=== PATIENT | female | born 1950 | race African-American/Black ===

== ENCOUNTER 2019-12-10 17:15 | Emergency (ER) | payer OTHER ==
--- NOTE | 2019-12-10 17:42 | ER ---
Nurse's Notes [facility] Name: Tracy Peterson Age: 69 yrs Sex: Female : 1950 Arrival Date: 12/10/2019 Time: 17:18 Bed 20 Private MD: Diagnosis: Acute sinusitis Presentation: 12/09 17:28 Chief complaint: Patient states: " I've been feeling like stuff is crawling on my face, ph like little bugs or something. It's been going on for a few days now and it's driving me crazy." Denies changes in soaps, lotions, ect, also states, " I noticed some swelling here (on sides of nose) so I thought I might have an infection" Denies sinus congestion or fever. Coronavirus screen: Patient denies a cough. Patient denies shortness of breath or difficulty breathing. Patient denies measured and/or subjective temperature greater than 100.4F prior to today's visit. Patient denies travel on a cruise ship or to a country the [facility] currently lists as an affected area. Patient denies contact with known and/or suspected case of COVID-19. Ebola Screen: No symptoms or risks identified at this time. Initial Sepsis Screen: Does the patient meet any 2 criteria? No. Patient's initial sepsis screen is negative. Does the patient have a suspected source of infection? No. Patient's initial sepsis screen is negative. Risk Assessment: Do you want to hurt yourself or someone else? Patient reports no desire to harm self or others. Onset of symptoms was December 10, 2019. 17:28 Method Of Arrival: Ambulatory ph 17:28 Acuity: TRICIA 4 ph Historical: - Allergies: 17:32 No Known Allergies; ph - Home Meds: 17:32 Amlodipine once daily [Active]; [place] Thyroid Oral daily [Active]; Hydrochlorothiazide ph Oral once daily [Active]; levothyroxine once daily [Active]; - PMHx: 17:32 Hypertension; Hypothyroidism; ph - PSHx: 17:32 Knee surgery; hip surgery; ph - Immunization history:: Adult Immunizations unknown. - Social history:: Smoking status: Patient denies any tobacco usage or history of. Screenin:43 Abuse screen: Denies threats or abuse. Nutritional screening: No deficits noted. em Tuberculosis screening: No symptoms or risk factors identified. Fall Risk None identified. Assessment: 17:50 General: Appears in no apparent distress. comfortable, Behavior is calm, cooperative, em appropriate for age, Denies fever. Pain: Denies pain. Neuro: Level of Consciousness is awake, alert, obeys commands, Oriented to person, place, time, situation, Appropriate for age. Cardiovascular: Capillary refill < 3 seconds Patient's skin is warm and dry. Respiratory: Airway is patent Respiratory effort is even, unlabored, Respiratory pattern is regular, symmetrical. GI: Abdomen is flat. EENT: Nares are clear Oral mucosa is moist. Throat is clear is pink. Derm: Skin is intact, is healthy with good turgor, Skin is pink, warm \\T\\ dry. Musculoskeletal: Capillary refill < 3 seconds, Range of motion: intact in all extremities. Vital Signs: 17:28 BP 128 / 68; Pulse 82; Resp 18; Temp 97.9; Pulse Ox 97% on R/A; ph ED Course: 17:18 Patient arrived in ED. mr 17:23 Yunier Cameron, IRMA is Primary Nurse. em 17:25 Vicente Cortes NP is PHCP. pm1 17:25 Florentino Elizondo MD is Attending Physician. pm1 17:32 Triage completed. ph 17:33 Arm band placed on Patient placed in an exam room. ph 17:43 Patient has correct armband on for positive identification. Bed in low position. Call em light in reach. 18:03 No provider procedures requiring assistance completed. Patient did not have IV access em during this emergency room visit. Administered Medications: No medications were administered Outcome: 17:42 Discharge ordered by . pm1 18:06 Discharged to home ambulatory. em 18:06 Condition: good 18:06 Discharge instructions given to patient, Instructed on discharge instructions, follow up and referral plans. medication usage, Demonstrated understanding of instructions, follow-up care, medications, Prescriptions given X 1. 18:09 Patient left the ED. em Signatures: Kathryn Menjivar Yunier Cameron, IRMA RN Faby Khoury RN RN Vicente Cortes, [facility] [employer] [facility] pm1
--- NOTE | 2019-12-10 17:43 | EDPHYS ---
Physician Documentation [facility] Name: Tracy Peterson Age: 69 yrs Sex: Female : 1950 Arrival Date: 12/10/2019 Time: 17:18 Bed 20 Private MD: ED Physician Florentino Elizondo HPI: 12/09 17:41 This 69 yrs old Black Female presents to ER via Ambulatory with complaints of Sinus pm1 Congestion, Facial problem. 17:41 The patient presents with Congestion left side of nose. Onset: The symptoms/episode pm1 began/occurred 2 week(s) ago. Modifying factors: The symptoms are alleviated by hot shower is able to blow her nose, the symptoms are aggravated by nothing. Associated signs and symptoms: Pertinent positives: ear ache, Pertinent negatives: chest pain, cough, fever, shortness of breath, sore throat, vertigo. Severity of symptoms: in the emergency department the symptoms are worse. The patient has not recently seen a physician, has an appointment scheduled, Dr. Foote on Tuesday. Historical: - Allergies: 17:32 No Known Allergies; ph - Home Meds: 17:32 Amlodipine once daily [Active]; [place] Thyroid Oral daily [Active]; Hydrochlorothiazide ph Oral once daily [Active]; levothyroxine once daily [Active]; - PMHx: 17:32 Hypertension; Hypothyroidism; ph - PSHx: 17:32 Knee surgery; hip surgery; ph - Immunization history:: Adult Immunizations unknown. - Social history:: Smoking status: Patient denies any tobacco usage or history of. ROS: 17:41 Constitutional: Negative for fever, chills, and weight loss. pm1 17:41 Neck: Negative for injury, pain, and swelling, Cardiovascular: Negative for chest pain, palpitations, and edema, Respiratory: Negative for shortness of breath, cough, wheezing, and pleuritic chest pain, Back: Negative for injury and pain, MS/Extremity: Negative for injury and deformity, Skin: Negative for injury, rash, and discoloration. 17:41 ENT: Positive for ear pain, sinus congestion, sinus pain, Negative for sore throat. 17:41 Neuro: Negative for dizziness, headache. Exam: 17:41 Constitutional: This is a well developed, well nourished patient who is awake, alert, pm1 and in no acute distress. Head/Face: Normocephalic, atraumatic. Trace swelling on cheek to the left of nose ENT: Nares patent. No nasal discharge, no septal abnormalities noted. Tympanic membranes are normal and external auditory canals are clear. Oropharynx with no redness, swelling, or masses, exudates, or evidence of obstruction, uvula midline. Mucous membranes moist. Neck: Trachea midline, no thyromegaly or masses palpated, and no cervical lymphadenopathy. Supple, full range of motion without nuchal rigidity, or vertebral point tenderness. No Meningismus. Chest/axilla: Normal chest wall appearance and motion. Nontender with no deformity. No lesions are appreciated. 17:41 Skin: Warm, dry with normal turgor. Normal color with no rashes, no lesions, and no evidence of cellulitis. MS/ Extremity: Pulses equal, no cyanosis. Neurovascular intact. Full, normal range of motion. 17:41 Cardiovascular: Exam negative for acute changes, Rate: normal, Pulses: no pulse deficits are appreciated. 17:41 Respiratory: Exam negative for acute changes, respiratory distress, shortness of breath. 17:41 Neuro: Exam negative for acute changes, Orientation: is normal, Motor: is normal, moves all fours, Gait: is steady, at a normal pace, without difficulty. Vital Signs: 17:28 BP 128 / 68; Pulse 82; Resp 18; Temp 97.9; Pulse Ox 97% on R/A; ph MDM: 17:27 Patient medically screened. pm1 17:41 Data reviewed: vital signs. Data interpreted: Pulse oximetry: on room air is 97 %. pm1 Interpretation: normal. Counseling: I had a detailed discussion with the patient and/or guardian regarding: the historical points, exam findings, and any diagnostic results supporting the discharge/admit diagnosis, the need for outpatient follow up, to return to the emergency department if symptoms worsen or persist or if there are any questions or concerns that arise at home. Administered Medications: No medications were administered Disposition: 18:19 Co-signature as Attending Physician, Florentino Elizondo MD. rn Disposition: 12/10/19 17:42 Discharged to Home. Impression: Acute sinusitis. - Condition is Stable. - Discharge Instructions: Sinusitis, Adult. - Prescriptions for Augmentin 875- 125 mg Oral Tablet - take 1 tablet by ORAL route every 12 hours for 10 days; 20 tablet. - Medication Reconciliation Form, Thank You Letter, Antibiotic Education, Prescription Opioid Use form. - Follow up: Emergency Department; When: As needed; Reason: Worsening of condition. Follow up: Private Physician; When: 2 - 3 days; Reason: Recheck today's complaints, Continuance of care, Re-evaluation by your physician. - Problem is new. - Symptoms have improved. Signatures: Yunier Cameron RN RN em Nieto, Roman, MD MD rn Hall, Patricia, RN RN Vicente Cortes, FLOWER [employer]IPPER FLOWER STRIPPER pm1 Corrections: (The following items were deleted from the chart) 18:09 17:42 12/10/2019 17:42 Discharged to Home. Impression: Acute sinusitis. Condition is em Stable. Forms are Medication Reconciliation Form, Thank You Letter, Antibiotic Education, Prescription Opioid Use. Follow up: Emergency Department; When: As needed; Reason: Worsening of condition. Follow up: Private Physician; When: 2 - 3 days; Reason: Recheck today's complaints, Continuance of care, Re-evaluation by your physician. Problem is new. Symptoms have improved. pm1
[2019-12-10 18:18] VITALS: BP 128/68; TEMP 97.9; O2SAT 97
== END 2019-12-10 18:09 | disposition home or self-care (01) ==
LOC: ER 17:15
DX: J01.90 Acute sinusitis, unspecified (principal); I10 Essential (primary) hypertension; E03.9 Hypothyroidism, unspecified
CPT/HCPCS: 99282

== ENCOUNTER 2020-03-16 18:46 | Emergency (ER) | payer OTHER ==
--- OUTSIDE RECORDS SUMMARY | 2020-03-16 18:48 | XMS REPORT | Continuity of Care Document ---
:1950 Author Organization [facility] Care Team Providers Name Role Phone [facility] Unavailable Un available Problems Problem Status Onset Classification Date Comments Sourc e Date Reported HIP OSTEOARTHRITIS Active 02/03/20 [facility] Hypertensive Active Problem 03/03/2019 [facility] disorder, systemic a nd arterial Spine,[facility] (disorder) [facility] [place] Hyperthyroidism Resolved Problem 03/03/2019 [facility] Ortho (disorder) and Spine,[facility] [place] Hypothyroidism Active Problem 03/03/2019 [facility] O rtho (disorder) and Spine,[facility] [place] Menopause present Resolved Problem 03/03/2019 M H Ortho (finding) and Spine,[facility] [place] Osteoarthritis Active Problem 03/03/2019 [facility] O rtho (disorder) and Spine,[facility] [place] Medications Medication Details Route Status Patient Ordering Order Source Instructions Provider Date remove patch Notes: Remove No Longer old patch Active 2016 Ortho before and application of Spine new patch. Aspirin 325 MG 325 mg = 1 Active Enteric Coated Tablet tab, PO, Q12H, 201 7 Ortho # 60 tab, 0 and Refill(s), Spine Pharmacy: [id number] Docusate Sodium 100 100 mg = 1 Active 02/16/ H MG Oral Capsule cap, PO, BID, 2017 Or tho # 20 cap, 0 and Refill(s), Spine Pharmacy: [id number] POLYETHYLENE GLYCOL 17 gm, PO, Active 02/16/ M H 3350 142 MG/ML Oral Daily, X 15 2017 Ortho Solution [Miralax] day, # 255 gm, and 0 Refill(s), Spine Pharmacy: [id number] Acetaminophen 325 MG 1-2 tab, PO, Active / Hydrocodone Q6H, PRN Pain, 2017 Ort ho Bitartrate 10 MG Oral X 10 day, # 60 and Tablet [[place] 10/325] tab, 0 Sp ine Refill(s) Milk of Magnesia Notes: (Same Inactive H as: Milk of 2017 Ortho Magnesia, MOM) and Spine Hydrochlorothiazide Notes: (Same Inactive 25 MG Oral Tablet as: 2017 Ortho Hydrodiuril) and With food. Spine Amlodipine Notes: (Same Inactive as: Norvasc) 2017 Ortho and Spine [place] Thyroid Notes: (Same Inactive As: [place] 2017 Ortho Thyroid, and S-P-T) Spine Thyroxine Notes: Take 1 Inactive hour before or 2017 Ortho 2 hours after and meal; Enteral Spine feeds may interefere with the absorption of this medication.(Sa me as:Levothroid, Synthroid) acetaminophen Notes: Max Inactive acetaminophen 2017 Ortho 4000 mg/day (4 and gm/day). Spine (Same as: Tylenol Extra Strength) Dulcolax Laxative Notes: (Same No Longer As: Dulcolax, Active 2016 Ortho Correctol) (Do and Not Crush) Spine "Do Not Crush" celecoxib Notes: NSAID. No Longer Please check Active 2016 Ortho indication. and Not for Spine seizure. (Same As: CeleBREX) Acetaminophen Notes: Infuse Inactive over 15 2016 Ortho minutes Do and not exceed Spine 4gm/day of acetaminophen MEDICATION WASTE Product Size: 1000 mg Product Wasted: ___ mg Tramadol Notes: Not to No Longer exceed Active 2016 Ortho 400mg/day. and (Same As: Spine Ultram) Tranexamic Acid Notes: (Same Inactive As: 2017 Ortho Cyklokapron) and Spine Docusate Sodium 100 Notes: (Same No Longer 02/15 MG Oral Capsule as: Colace) Active 2017 Orth o [Colace] (Do Not Crush) and Spine Aspirin 325 MG Notes: (Do Not No Longer Enteric Coated Tablet Crush) Do not Active 201 7 Ortho crush or chew. and Spine Aspirin Notes: (Do Not Inactive Crush) Do not 2017 Ortho crush or chew. and Spine Ephedrine 10 mg, Route: Inactive IVP, Drug 2017 Ortho form: INJ, and ONCE, Dosing Spine Weight 98.182, kg, Start date: 02/15/17 14:34:00 CDT, Stop date: 02/15/17 14:34:00 CDT Clindamycin 600 mg, 50 mL, No Longer Route: IVPB, Active 2016 Ortho Drug form: and INJ, Q6H, Spine Dosing Weight 98.182, kg, Start date: 02/15/17 14:30:00 CDT, Stop date: 02/16/17 5:00:00 CDT, ABX Indication: Surgical Prophylaxis Cefazolin Notes: (Same No Longer As: Ancef, Active 2017 Ortho Kefzol) and MEDICATION Spine WASTE Product Size: 1000 mg Product Wasted: ___ mg Diphenhydramine Notes: (Same No Longer H as: Benadryl) Active 2017 Ortho and Spine Bisacodyl Notes: (Same No Longer As: Dulcolax, Active 2016 Ortho Bisco-Lax) and Spine Ondansetron Notes: (Same No Longer as: Zofran) Active 2017 Ortho MEDICATION and WASTE Spine Product Size: 4 mg Product Wasted: ___ mg Morphine Notes: (Same No Longer as:MORPhine Active 2016 Ortho Sulfate) and Spine Oxycodone Notes: (Same No Longer Hydrochloride 5 MG as: Active 2017 Ortho Oral Tablet Roxicodone) and Spine Naloxone Notes: Same as Inactive Narcan 2017 Ortho and Spine Fentanyl / Notes: (Same Inactive ropivacaine as 2017 Ortho Naropin-Sublim and aze) Spine Promethazine Notes: Do not Inactive give IV push. 2017 Ortho (Same as: and Phenergan) Spine Morphine Notes: (Same Inactive as:MORPhine 2017 Ortho Sulfate) and Spine Labetalol 10 mg, 2 mL, Inactive Route: IVP, 2017 Ortho Drug form: and INJ, Q5Min, Spine Dosing Weight 98.182, kg, PRN Elevated BP, Start date: 02/15/17 12:26:00 CDT, Duration: 5 doses or times, Stop date: 02/15/17 20:25:00 CDT Hydralazine Notes: (Same Inactive as: 2017 Ortho Apresoline) and Push over 5 Spine minutes Acetaminophen Notes: Max Inactive acetaminophen 2017 Ortho 4000 mg/day (4 and gm/day). Spine (Same as: Tylenol Extra Strength) Ondansetron Notes: (Same Inactive as: Zofran) 2017 Ortho MEDICATION and WASTE Spine Product Size: 4 mg Product Wasted: ___ mg Meperidine Notes: (Same Inactive as: Demerol) 2017 Ortho "Use and Precaution in Spine Elderly, Seizure disorders, and Renal impairment&quo t; Hydromorphone Notes: Same as Inactive Dilaudid 2017 Ortho and Spine Naloxone Notes: Same as Inactive Narcan 2017 Ortho and Spine Flumazenil Notes: (Same Inactive as: Romazicon) 2017 Ortho and Spine acetaminophen 325 mg Notes: Do not Inactive 01/21 oral tablet exceed 4 2017 Ortho gm/day. (Same and as: Tylenol) Spine Acetaminophen 325 MG Notes: Do not Inactive 01/21 / Oxycodone exceed 4gm/day 2017 Ortho Hydrochloride 5 MG of and Oral Tablet [Percocet acetaminophen. Spine 5/325] (Same as: Percocet-5/325 ) Zofran Notes: (Same Inactive as: Zofran) 2017 Ortho MEDICATION and WASTE Spine Product Size: 4 mg Product Wasted: ___ mg Morphine Notes: (Same Inactive as:MORPhine 2017 Ortho Sulfate) and Spine Famotidine 20 MG Oral Notes: (Same No Longer Tablet [Pepcid] as: Pepcid) Active 2017 Orth o and Spine Milk of Magnesia Notes: (Same No Longer as: Milk of Active 2017 Ortho Magnesia, MOM) and Spine Maalox Advanced Notes: No Longer Regular Strength SUSP (aluminum Active 2017 Ortho hydroxide-magn and esium hyd- Spine simethicone [phone]/5 ml 30 ml ud BIRGIT) Acetaminophen 325 MG Notes: Do not Inactive 01/21 / Hydrocodone exceed 4gm/day 2017 Ort ho Bitartrate 10 MG Oral of an d Tablet [[place] 10/325] acetaminophen. Spine (Same as: [place] 325/10) Temazepam Notes: (Same No Longer As: Restoril) Active 2017 Ortho and Spine Dulcolax Laxative Notes: (Same No Longer As: Dulcolax, Active 2017 Ortho Bisco-Lax) and Spine Lactated Ringers 1,000 mL, No Longer 1,000 mL Rate: 75 Active 2017 Ortho ml/hr, Infuse and over: 13.3 hr, Spine Route: IV, Dosing Weight 98.182 kg, Total Volume: 1,000, Start date: 02/15/17 11:33:00 CDT, Duration: 30 day, Stop date: 03/17/17 11:32:00 CDT Lactated Ringers 1,000 mL, Inactive 1,000 mL Rate: 40 2017 Ortho ml/hr, Infuse and over: 25 hr, Spine Route: IV, Dosing Weight 98.182 kg, Total Volume: 1,000, Start date: 02/15/17 7:17:00 CDT, Duration: 30 day, Stop date: 03/17/17 7:16:00 CDT Ancef Notes: Same Inactive as: Ancef 2017 Ortho and Spine Clindamycin 900 mg, 50 mL, Inactive Route: IVPB, 2017 Ortho Drug form: and INJ, ONCE, Spine Dosing Weight 98.182, kg, Start date: 02/15/17 7:16:00 CDT, Stop date: 02/15/17 7:16:00 CDT, ABX Indication: Surgical Prophylaxis Dexamethasone Notes: Inactive Concentration: 2017 Ortho 4mg/ml and Spine Zofran Notes: (Same Inactive as: Zofran) 2017 Ortho MEDICATION and WASTE Spine Product Size: 4 mg Product Wasted: ___ mg Hydroxyzine Notes: (Same Inactive as: Vistaril) 2017 Ortho and Spine Ofirm Notes: Infuse Inactive over 15 2016 Ortho minutes Do and not exceed Spine 4gm/day of acetaminophen MEDICATION WASTE Product Size: 1000 mg Product Wasted: ___ mg 72 HR Scopolamine Notes: Change Inactive 0.0139 MG/HR patch every 72 2016 Orth o Transdermal Patch hours (Same and as: Spine Transderm-Scop ) Oxycontin Notes: Do not Inactive crush or chew. 2017 Ortho (Same as: and OxyContin) Spine Celebrex Notes: NSAID. Inactive Please check 2017 Ortho indication. and Not for Spine seizure. (Same As: CeleBREX) polymyxin B sulfate + Notes: (Same Inactive 01/21 sodium chloride 0.9% as: Polymyxin 2017 Ortho 250 mL INJ (for IV B Sulfate) an d set) 250 mL Spine vancomycin + sodium Notes: TIME Inactive chloride 0.9% 250 mL CRITICAL 2017 Or tho INJ (for IV set) 250 MEDICATION and mL (Same As: Spine Vancocin) ropivacaine Notes: NOT Inactive FOR IV use 2016 Ortho Ropivacaine 5 and mg/mL (49.25 Spine mL) Epinephrine 1 mg/mL (0.5 mL) Clonidine 0.1 mg/mL (0.8 mL) Ketorolac 30 mg/mL (1 mL) Normal Saline 48.45 mL amLODIPine 5 mg oral 5 mg = 1 tab, No Longer tablet PO, Daily, Active 2017 Ortho take DOS, # 90 and tab, 0 Spine Refill(s) levothyroxine 25 mcg 25 microgram = Active 01/20 (0.025 mg) oral 1 tab, PO, 2017 Ortho tablet Daily, take and DOS, # 30 tab, Spine 0 Refill(s) Hydrochlorothiazide 25 mg = 1 tab, No Longer 25 MG Oral Tablet PO, Daily, # Active 2016 O rtho 30 tab, 0 and Refill(s) Spine meloxicam 15 mg oral 15 mg = 1 tab, Active 01/20 tablet PO, Daily, # 2017 Ortho 30 tab, 0 and Refill(s) Spine thyroid (RETIREMENT) 60 MG 60 mg = 1 tab, Active 02/07 Oral Tablet [[place] PO, Daily, 2017 O rtho Thyroid] take DOS, # 30 and tab, 1 Spine Refill(s) Allergies, Adverse Reactions, Alerts Substance Category Reaction Severity Reaction Status Date Comments S ource type Reported nka Assertion Drug Active OPI D allergy [place] NKFA Assertion Food Active MH OPI D allergy [place] Immunizations No Data Provided for This Section Results Order Name Results Value Reference Date Interpretation Comments Maya rce Range HEMATOLOGY Hct 32.3 36.0 - 02/16 MH 48.0 Ortho and Spine HEMATOLOGY Hgb 11.0 12.0 - 02/16 MH 16.0 Ortho and Spine BLOOD BANK Antibody Scrn Negative 02/10 RESULTS (02/10/17 8:35 AM) Ortho and Spine BLOOD BANK ABO/Rh A POS 02/10 MH RESULTS /2016 Ortho and Spine CHEM PANEL eGFR 65 02/10 Result Comment: The Ortho eGFR is and calculated Spine using the CKD-EPI formula. In most young, healthy individuals the eGFR will be >90 mL/min/1.73m2 . The eGFR declines with age. An eGFR of 60-89 may be normal in some populations, particularly the elderly, for whom the CKD-EPI formula has not been extensively validated. Use of the eGFR is not recommended in the following populations:< br/>
Trisha viduals with unstable creatinine concentration s, including patients and those with serious co-morbid conditions.<b r/>
Patie nts with extremes in muscle mass or diet.

The data above are obtained from the National Kidney Disease Education Program (NKDEP) which additionally recommends that when the eGFR is used in patients with extremes of body mass index for purposes of drug dosing, the eGFR should be multiplied by the estimated BMI. CHEM PANEL Total Protein 8.3 6.4 - 8.4 02/10 Ortho and Spine CHEM PANEL Albumin Lvl 3.9 3.5 - 5.0 02/10 Ortho and Spine CHEM PANEL B/C Ratio 13 6 - 25 02/10 Ortho and Spine CHEM PANEL Alk Phos 84 39 - 136 02/10 Ortho and Spine CHEM PANEL ASPARTATE 19 0 - 37 02/10 MH TRANSAMINASE Ortho and Spine CHEM PANEL ALANINE 28 0 - 65 02/10 AMINOTRANSFER Ortho E and Spine CHEM PANEL A/G Ratio 0.9 0.7 - 1.6 02/10 Ortho and Spine CHEM PANEL Globulin 4.4 2.7 - 4.2 02/10 Ortho and Spine CHEM PANEL Bili Total 0.4 0.2 - 1.3 02/10 Ortho and Spine CHEM PANEL Glucose Lvl 108 70 - 99 02/10 Ortho and Spine CHEM PANEL BUN 14 7 - 22 02/10 Ortho and Spine CHEM PANEL Creatinine Lvl 1.05 0.50 - 02/10 MH 1.40 Ortho and Spine CHEM PANEL Calcium Lvl 9.0 8.5 - 10.5 02/10 Ortho and Spine CHEM PANEL AGAP 13.0 10.0 - 02/10 MH 20.0 Ortho and Spine CHEM PANEL Chloride Lvl 103 95 - 109 02/10 Ortho and Spine CHEM PANEL CO2 27 24 - 32 02/10 Ortho and Spine CHEM PANEL Potassium Lvl 3.0 3.5 - 5.1 02/10 Result Comment: Ortho Critical and Result(s) Spine called to [facility] at 1203 by [facility]. Read back OK. CHEM PANEL Sodium Lvl 140 135 - 145 02/10 Ortho and Spine HEMATOLOGY MCV 91.2 80.0 - 02/10 MH 98.0 /2017 Ortho and Spine HEMATOLOGY Hct 40.1 36.0 - 02/10 MH 48.0 Ortho and Spine HEMATOLOGY MCH 30.1 27.0 - 02/10 MH 31.0 Ortho and Spine HEMATOLOGY Hgb 13.3 12.0 - 02/10 MH 16.0 Ortho and Spine HEMATOLOGY MPV 7.6 7.4 - 10.4 02/10 Ortho and Spine HEMATOLOGY Platelet 357 133 - 450 02/10 Ortho and Spine HEMATOLOGY RDW 13.2 11.5 - 02/10 MH 14.5 Ortho and Spine HEMATOLOGY MCHC 33.1 32.0 - 02/10 MH 36.0 2017 Ortho and Spine HEMATOLOGY RBC 4.40 4.20 - 02/10 MH 5.40 Ortho and Spine HEMATOLOGY WBC 4.9 3.7 - 10.4 02/10 Ortho and Spine HEMATOLOGY Basophils 1.0 0.0 - 1.0 02/10 Ortho and Spine HEMATOLOGY Eosinophils 2.4 0.0 - 4.0 02/10 Ortho and Spine HEMATOLOGY Monocytes 7.8 2.0 - 12.0 02/10 Ortho and Spine HEMATOLOGY Lymphocytes 41.4 20.0 - 02/10 MH 40.0 /2017 Ortho and Spine HEMATOLOGY Segs 47.4 45.0 - 02/10 MH 75.0 /2017 Ortho and Spine HEMATOLOGY Eosinophils # 0.1 0.0 - 0.5 02/10 Ortho and Spine HEMATOLOGY Monocytes # 0.4 0.0 - 0.8 02/10 Ortho and Spine HEMATOLOGY Lymphocytes # 2.0 1.0 - 5.5 02/10 Ortho and Spine HEMATOLOGY Segs-Bands # 2.3 1.5 - 8.1 02/10 Ortho and Spine Pathology Reports No Data Provided for This Section Diagnostic Reports Report Value Date Source Thyroid US EXAM: THYROID ULTRASOUND 03/01/2019 [facility]YD[facility]ion [place] INDICATION: Thyroid goiter. Patient reports prio r thyroidectomy. COMPARISON: None. TECHNIQUE: Multiplanar matt adina and color Doppler ultrasound of the neck were obtained in the area of the thyroid. FINDINGS: Thyroid: No thyroid tissue i s appreciated on these images. No circumscribed mass. Cervical lymph nodes: No adenopathy on the submi tted images. IMPRESSION: No thyroid tissue appreciated. REFERENCE: Duong BR et al. 2015 [place] Thyroid Association Management Guidelines for Adult Patients with Thyroid Nodules and Differentiated Thyroid Cancer. Thyroid. 2016; 26(1):1-133. SL: [id number] Pelvis AP DX EXAM: XR PELVIS 1 VIEW 02/15/[address] [facility] DATE: 02/15/2017 11:33 AM CDT INDICATION: Joint deformities - post op, total h ip replacement COMPARISON: Prior radiographs from the same day, 1046 hours TECHNIQUE: A single AP supine radiograph of the pelvis FINDINGS: Interval completion of total left hip arthroplas ty in satisfactory alignment. No acute fracture seen. Expected postoperative soft tissue changes and a surgical drain. Severe degenerative changes of the right hip, most pronounced along the medial aspect. IMPRESSION: 1. Status post total left hip arthroplasty in s atisfactory alignment. 2. No acute fracture. Hip 1 view DX EXAM: XR LEFT HIP 1 VIEW 02/15/2017 [facility] DATE: 02/15/2017 9:45 AM CDT INDICATION: LEFT TOTAL HIP ARTHROPLASTY - INTRA- OP LEFT HIP COMPARISON: None TECHNIQUE: 1 view of the hip including the pelv is FINDINGS: Intraoperative radiograph demonstrating left fem oral rasp and acetabular cup. No acute fracture seen. IMPRESSION: 1. Intraoperative radiograp h demonstrating femoral measuring rasp and acetabular cup. 2. No acute fracture. Consultation Notes No Data Provided for This Section Discharge Summaries No Data Provided for This Section History and Physicals No Data Provided for This Section Vital Signs Vital Sign Value Date Comments Source Systolic (mm Hg) 124 02/16/2017 MH Ortho an d Spine Diastolic (mm Hg) 64 02/16/2017 MH Ortho a nd Spine Respitory Rate 18 02/16/2017 [facility] Ortho and Spine Temperature Oral (F) 97.7 F 02/16/2017 MH Orth o and Spine Heart Rate 65 02/16/2017 MH [facility] and Spine Temperature Oral (F) 97.7 F 02/16/2017 MH Orth [facility] and Spine Systolic (mm Hg) 103 02/16/2017 MH Ortho an d Spine Diastolic (mm Hg) 59 02/16/2017 MH Ortho a nd Spine Respitory Rate 18 02/16/2017 [facility] and Spine Heart Rate 62 02/16/2017 [facility] and Spine Heart Rate 64 02/16/2017 MH [facility] and Spine Temperature Oral (F) 97.6 F 02/16/2017 MH Orth [facility] and Spine Respitory Rate 17 02/16/2017 [facility] and Spine Systolic (mm Hg) 119 02/16/2017 MH Ortho an d Spine Diastolic (mm Hg) 53 02/16/2017 MH Ortho a nd Spine Weight 98.182 02/15/2017 [facility] Height 170.18 cm 02/15/2017 [facility] Spine BMI Calculated 33.9 02/15/2017 [facility] Weight 97.727 02/07/2017 [facility] Height 157.48 cm 02/07/2017 [facility] Spine BMI Calculated 39.41 02/07/2017 [facility]o and Spine Encounters Location Location Encounter Encounter Reason Attending ADM DC Stat us Source Details Type Number For Provider Date Date [id number] [place] [facility] Outpt Diag [id number] [facility] 03/01 03/02 [facility] [place] [facility] Procedures Procedure Code Date Perfomer Comments Source Total thyroidectomy [id number] 11/03/2012 [facility] Or tho and Spine,[facility] [place] Knee [id number] right,left [facility] Ortho and replacement<sup>1</ about 10 years S [facility] sup> ago [place] Rotator cuff repair [id number] [facility] Or tho and Spine,MH [facility] [place] Assessment and Plan Assessment and Plan Date Source Extracted from:Title: Progress Note 02/16/2017 [facility] rtho and Spine Author: Yair Peterson MD Date: 02/16/17 Assessment/Plan 1.Left hip pain Status post left total hip arthroplasty 2.Hypertension Blood pressure medications held toda y due to relatively low blood pressures. Patient instructed to continue to hold blood pressure medications and obtain blood pressure cuff at hometo check daily bl ood pressures. Patient instructed to res tart blood pressure medications once systolic blood pressures are consistently greater [id number] mmHg 3.Hypothyroid Continue on levothyroxine 4.Acute blood loss anemia H&H lower postop. Vitals relatively stable. No indicatio n for transfusion Osteoarthritis of left hip Prophylaxis Aspirin twice daily Disposition Home today per primary Extracted from:Title: New Discharge Summary * Author: Stan Segal MD Date: 02/16/17 Discharge Information Discharge Summary Information: Admittin g diagnosis, Discharge diagnosis, Discharge medications. Pain in left hip (M25.552) Essential (primary) hypertension (I10) Hypothyroidism, unspecified (E03.9) Acute posthemorrhagic anemia (D62) Surgical Procedures: 02/15/17 09:49 LEFT TOTAL HIP ARTHROPLASTY [id number] Primary Surgeon: Stan Segal MD ( Service: ORT) Discharge Plan Discharge Summary Plan Discharge Status: improved. Discharge instructions given: to patient, to caregiver. Discharge disposition: discharge to home. Prescriptions: called to pharmacy, domenico velez and given to patient, ASA 325 mg BID for DVT prophylaxis unless otherwise directed. Home excercise program sheet was reviewe d with patient and they will perform at home as directed; elevate above heart and use ice as directed.. For THR patients instructions on hip precautions were provid ed to the patient. Home PT and/or outpatient PT was ordered. Education and Follow-up Counseled: patient, family. Discharge Planning: The patient will kellee l if they have any concerns or questions, prior to their followup appointment in the office. Extracted from:Title: Consult Note Author: Yair Peterson MD Date: 02/15/17 Assessment/Plan 1.Left hip pain Scheduled for left total hip arthrop lasty with Dr. Segal. Immediate post op care per Primary (SCIP/IS/IVF/O2/PT) 2.Hypertension We will restart patient's amlodipine and Hydrocort thiazide if not having any postop hypotension 3.Hypothyroid Restart patient's levothyroxine postop [facility] Hospitalist Consult Please [id number] with any questions Plan of Care No Data Provided for This Section Social History Social History Date Source Social History TypeResponse 02/07/2017 [facility] [place] Substance Abuse Use: None. Exercise Exercise frequency: 3-4 times/week. Exercise type: Swimming .1 Alcohol Current, Type Beer. Frequency: 1-2 times per year. Previou s treatment: None. Smoking Status Former smoker; Exposure to Tobacco Smoke None; Cigarette Smoking Last 365 Days No; Reg Smoking Cessation Counseling No2 entered on: 02/15/17 1water aerobics 4 times per week. Denies SOB on exertion.2quit smoking 20yrs ago Social History TypeResponse 02/07/2017 Ortho and Spine Substance Abuse Use: None. Exercise Exercise frequency: 3-4 times/week. Exercise type: Swimming .1 Alcohol Current, Type Beer. Frequency: 1-2 times per year. Previou s treatment: None. Smoking Status Former smoker; Exposure to Tobacco Smoke None; Cigarette Smoking Last 365 Days No; Reg Smoking Cessation Counseling No2 1water aerobics 4 times per week. Denies SOB on exertion.2quit smoking 20yrs ago Family History No Data Provided for This Section Advance Directives No Data Provided for This Section Functional Status No Data Provided for This Section
--- NOTE | 2020-03-16 19:49 | RAD REPORT ---
EXAM DESCRIPTION: Mark Single View03/16/2020 7:43 pm CLINICAL HISTORY: sob COMPARISON: 2012 FINDINGS: The lungs appear clear of acute infiltrate. The heart is normal size IMPRESSION: No acute abnormalities displayed
[2020-03-16 20:05] LABS: Protime INR 0.94
[2020-03-16 20:22] LABS: ALT/SGPT 23 U/L (12-78); AST/SGOT 18 U/L (15-37); Albumin 3.6 g/dL (3.4-5.0); Alkaline Phosphatase 85 U/L (45-117); BUN Blood Urea Nitrogen 16 mg/dL (7-18); Bicarbonate 27 mmol/L (21-32); Bilirubin Direct < 0.1 mg/dL (0-0.2); Bilirubin Total 0.2 mg/dL (0.2-1.0); Glucose Level 103 mg/dL (74-106); Magnesium 2.3 mg/dL (1.8-2.4); NT PRO-BNP 9 pg/mL (<125); Potassium 3.2 mmol/L (3.5-5.1); Sodium Level 143 mmol/L (136-145); Troponin (Emerg Dept Use Only) < 0.02 ng/mL (0.0-0.045)
[2020-03-16 20:23] LABS: Absolute Lymphocytes (CBC) 3.5 K/uL (0.7-4.9); Basophils % 0.3 % (0-1.3); Hematocrit 37.7 % (36.0-45.0); Lymphocytes % 53.1 % (15.3-44.8)
--- NOTE | 2020-03-16 22:45 | ER ---
Nurse's Notes [facility] Name: Tracy Peterson Age: 69 yrs Sex: Female : 1950 Arrival Date: 03/16/2020 Time: 18:48 Bed 19 Private MD: Diagnosis: Malaise and fatigue Presentation: 03/16 18:58 Chief complaint: Intermittent chest palpitations and SOB x 2-3 days. Denies pain. hb Coronavirus screen: Proceed with normal triage. Ebola Screen: No symptoms or risks identified at this time. Initial Sepsis Screen: Does the patient meet any 2 criteria? No. Patient's initial sepsis screen is negative. Does the patient have a suspected source of infection? No. Patient's initial sepsis screen is negative. Risk Assessment: Do you want to hurt yourself or someone else? Patient reports no desire to harm self or others. Onset of symptoms was March 14, 2020. 18:58 Method Of Arrival: Ambulatory hb 18:58 Acuity: TRICIA 3 hb Triage Assessment: 19:57 General: Appears in no apparent distress. Behavior is calm, cooperative. Pain: Denies ks7 pain. Respiratory: Reports heart palpitations and sob when she has palpitations and with exertion Onset: The symptoms/episode began/occurred gradually, the patient has moderate shortness of breath. Historical: - Allergies: 19:02 No Known Allergies; hb - Home Meds: 19:02 amlodipine 5 mg oral tab [Active]; hydrochlorothiazide 25 mg oral tab [Active]; hb Synthroid 25 mcg Oral tab 1 tab once daily [Active]; [place] Thyroid 60 mg oral tab daily [Active]; levothyroxine once daily [Active]; - PMHx: 19:02 Hypertension; Hypothyroidism; hb - PSHx: 19:02 Knee surgery; hip surgery; hb - Immunization history:: Adult Immunizations up to date. - Social history:: Smoking status: Patient denies any tobacco usage or history of. Screenin:59 Abuse screen: Denies threats or abuse. Denies injuries from another. Nutritional ks7 screening: No deficits noted. Tuberculosis screening: No symptoms or risk factors identified. Fall Risk None identified. Assessment: 19:59 Cardiovascular: Rhythm is regular. Cardiovascular: Parent/caregiver reports patient has ks7 had shortness of breath, since 2 days ago, only when she has heart palpitations and when she was walking up stairs. Respiratory: Airway is patent Respiratory effort is even, unlabored. 21:10 Reassessment: pt anxious about CT angio. Danny FULTON explained procedure, I let her know ks7 its a standard test to diagnose PE. new ID started. Respiratory: Breath sounds are clear. 22:40 Reassessment: Patient is alert, oriented x 3, equal unlabored respirations, skin ks7 warm/dry/pink. 23:10 Reassessment: Patient states feeling better. ks7 Vital Signs: 18:58 BP 163 / 98; Pulse 88; Resp 16; Temp 98.1; Pulse Ox 100% on R/A; Weight 97.52 kg; hb Height 5 ft. 7 in. (170.18 cm); Pain 0/10; 19:57 BP 125 / 97; Pulse 82; Resp 18; Temp 98.1; Pulse Ox 99% on R/A; Pain 0/10; ks7 21:12 BP 149 / 78; Pulse 80; Resp 18; Pulse Ox 98% on R/A; Pain 0/10; ks7 22:57 BP 141 / 74; Pulse 77; Resp 12; Temp 98.3; Pulse Ox 98% on R/A; ds4 18:58 Body Mass Index 33.67 (97.52 kg, 170.18 cm) hb ED Course: 18:48 Patient arrived in ED. as 19:00 Triage completed. hb 19:02 Arm band placed on. hb 19:09 Eladia Jaffe, RN is Primary Nurse. ks7 19:10 Danny Sibley PA is PHCP. [facility] 19:10 Paul Arroyo MD is Attending Physician. m 19:43 XRAY Chest (1 view) In Process Unspecified. EDMS 19:59 Resting quietly. ks7 19:59 Nurse Practitioner and/or Physician Packing Inspector to see patient. ks7 19:59 Patient has correct armband on for positive identification. Placed in gown. Bed in low ks7 position. Call light in reach. Side rails up X2. 19:59 No provider procedures requiring assistance completed. Inserted saline lock: 20 gauge ks7 in left antecubital area, using aseptic technique. Blood collected. 20:49 Radiology exam delayed due to IV insertion attempt and/or patient not having md1 appropriate IV at this time. 21:10 Inserted saline lock: 22 gauge in left antecubital area, using aseptic technique. ks7 21:10 Inserted. Inserted. ks7 21:[address] via stretcher. ks7 21:33 Patient moved back from CT. ks7 21:36 CT Chest For PE Angio In Process Unspecified. EDMS 23:10 IV discontinued, intact, bleeding controlled, No redness/swelling at site. Pressure ks7 dressing applied. Administered Medications: No medications were administered Outcome: :44 Discharge ordered by . alonso 23:10 Discharged to home ambulatory. ks7 23:10 Condition: good 23:10 Discharge instructions given to patient, Instructed on discharge instructions, follow up and referral plans. Demonstrated understanding of instructions, follow-up care. 23:12 Patient left the ED. ks7 Signatures: Dispatcher [employer] EDMS Danny Sibley PA PA jmm Martinez, Amelia as Swanson, Donovan ds4 Arlen Ha, IRMA RN Jessica Chavez md1 Eladia Jaffe, IRMA RN ks7 Corrections: (The following items were deleted from the chart) 21:12 19:59 No provider procedures requiring assistance completed. ks7 ks7
--- NOTE | 2020-03-16 22:45 | EDPHYS ---
Physician Documentation [facility] Name: Tracy Peterson Age: 69 yrs Sex: Female : 1950 Arrival Date: 03/16/2020 Time: 18:48 Bed 19 Private MD: ED Physician Paul Arroyo HPI: 03/16 19:10 This 69 yrs old Black Female presents to ER via Ambulatory with complaints of Shortness jmm Of Breath, High Blood Pressure. 19:10 The patient has shortness of breath with light activity. Onset: The symptoms/episode jmm began/occurred gradually, 3 day(s) ago. Duration: The symptoms are continuous. The patient's shortness of breath is aggravated by exertion, light activity. Associated signs and symptoms: Pertinent negatives: chest pain, non-productive cough, productive cough, diaphoresis, fever, hemoptysis, loss of consciousness, nausea, numbness in extremities, visual changes, vomiting. This is a 69 year old female with a history of htn, hypothyroidism that presents to the ED with complaints of shortness of breath beginning approx 3 days ago. Denies chest pain. Worse on exertion. . Historical: - Allergies: 19:02 No Known Allergies; hb - Home Meds: 19:02 amlodipine 5 mg oral tab [Active]; hydrochlorothiazide 25 mg oral tab [Active]; hb Synthroid 25 mcg Oral tab 1 tab once daily [Active]; [place] Thyroid 60 mg oral tab daily [Active]; levothyroxine once daily [Active]; - PMHx: 19:02 Hypertension; Hypothyroidism; hb - PSHx: 19:02 Knee surgery; hip surgery; hb - Immunization history:: Adult Immunizations up to date. - Social history:: Smoking status: Patient denies any tobacco usage or history of. ROS: 19:10 Abdomen/GI: Negative for abdominal pain, nausea, vomiting, diarrhea, and constipation, jmm Neuro: Negative for headache, weakness, numbness, tingling, and seizure. 19:10 Constitutional: Positive for fatigue. 19:10 Respiratory: Positive for shortness of breath. 19:10 All other systems are negative. Exam: 19:10 Constitutional: This is a well developed, well nourished patient who is awake, alert, jmm and in no acute distress. Head/Face: atraumatic. Eyes: EOMI, no conjunctival erythema appreciated ENT: Moist Mucus Membranes Neck: Trachea midline, Supple Chest/axilla: Normal chest wall appearance and motion. Cardiovascular: Regular rate and rhythm. No edema appreciated Respiratory: Normal respirations, no respiratory distress appreciated Abdomen/GI: Non distended, soft Back: Normal ROM Skin: General appearance color normal MS/ Extremity: Moves all extremities, no obvious deformities appreciated, no edema noted to the lower extremities Neuro: Awake and alert, normal gait Psych: Behavior is normal, Mood is normal, Patient is cooperative and pleasant 19:10 ECG was reviewed by the Attending Physician. Vital Signs: 18:58 BP 163 / 98; Pulse 88; Resp 16; Temp 98.1; Pulse Ox 100% on R/A; Weight 97.52 kg; hb Height 5 ft. 7 in. (170.18 cm); Pain 0/10; 19:57 BP 125 / 97; Pulse 82; Resp 18; Temp 98.1; Pulse Ox 99% on R/A; Pain 0/10; ks7 21:12 BP 149 / 78; Pulse 80; Resp 18; Pulse Ox 98% on R/A; Pain 0/10; ks7 22:57 BP 141 / 74; Pulse 77; Resp 12; Temp 98.3; Pulse Ox 98% on R/A; ds4 18:58 Body Mass Index 33.67 (97.52 kg, 170.18 cm) hb MDM: 19:11 Patient medically screened. [facility] 22:43 Data reviewed: vital signs, nurses notes. [facility] 03/17 02:41 Data reviewed: lab test result(s), EKG, radiologic studies, plain films. Counseling: I alonso had a detailed discussion with the patient and/or guardian regarding: the historical points, exam findings, and any diagnostic results supporting the discharge/admit diagnosis, lab results, radiology results, the need for outpatient follow up, to return to the emergency department if symptoms worsen or persist or if there are any questions or concerns that arise at home. ED course: CTA negative. Patient has no chest pain. I do not suspect ACS. Patient is advised to follow up with pcp for reevaluation and otherwise given strict return precautions. Patient understood and agrees with the plan of care. . 03/16 19:10 Order name: Basic Metabolic Panel; Complete Time: 20:31 [facility] 03/16 19:10 Order name: CBC with Diff; Complete Time: 20:31 [facility] 03/16 19:10 Order name: LFT's; Complete Time: 20:31 [facility] 03/16 19:10 Order name: Magnesium; Complete Time: 20:31 [facility] 03/16 19:10 Order name: NT PRO-BNP; Complete Time: 20:31 [facility] 03/16 19:10 Order name: PT-INR; Complete Time: 20:31 [facility] 03/16 19:10 Order name: Troponin (emerg Dept Use Only); Complete Time: 20:31 [facility] 03/16 19:10 Order name: XRAY Chest (1 view); Complete Time: 19:54 [facility] 03/16 19:10 Order name: EKG; Complete Time: 19:11 [facility] 03/16 19:10 Order name: Cardiac monitoring; Complete Time: 19:42 [facility] 03/16 19:10 Order name: EKG - Nurse/Tech; Complete Time: 19:42 [facility] 03/16 19:10 Order name: IV Saline Lock; Complete Time: 21:10 [facility] 03/16 20:35 Order name: CT Chest For PE Angio [facility] 03/16 19:10 Order name: O2 Per Protocol; Complete Time: 19:42 [facility] 03/16 19:10 Order name: O2 Sat Monitoring; Complete Time: 19:42 [facility] 03/16 20:02 Order name: Urine Dipstick-Ancillary (obtain specimen) [facility] EC/26 19:10 Rate is 83 beats/min. Rhythm is regular. QRS [place] is Normal. NC interval is normal. QRS jmm interval is normal. QT interval is normal. No Q waves. T waves are Normal. No ST changes noted. Reviewed by me. Administered Medications: No medications were administered Disposition: 03/17 05:32 Co-signature as Attending Physician, Paul Arroyo MD I agree with the assessment and tucker plan of care. Disposition: 03/16/20 22:44 Discharged to Home. Impression: Malaise and fatigue. - Condition is Stable. - Discharge Instructions: Shortness of Breath, Fatigue. - Medication Reconciliation Form, Thank You Letter, Antibiotic Education, Prescription Opioid Use form. - Follow up: Private Physician; When: 2 - 3 days; Reason: Recheck today's complaints, Continuance of care, Re-evaluation by your physician. Signatures: Dispatcher [employer] EDPaul Thao MD MD cha Mickail, Joel, PA PA jmm Baxter, Heather, RN RN Eladia Voss RN RN ks7 Corrections: (The following items were deleted from the chart) 03/16 23:12 22:44 03/16/2020 22:44 Discharged to Home. Impression: Malaise and fatigue. Condition ks7 is Stable. Forms are Medication Reconciliation Form, Thank You Letter, Antibiotic Education, Prescription Opioid Use. Follow up: Private Physician; When: 2 - 3 days; Reason: Recheck today's complaints, Continuance of care, Re-evaluation by your physician. alonso
[2020-03-16 23:28] VITALS: O2SAT 98
[2020-03-16 23:30] VITALS: BP 141/74; TEMP 98.3
--- NOTE | 2020-03-17 05:57 | EKG ---
Test Date: 2020-03-16 Test Time: 19:12:49 Talent Development Manager: MCKAYLA MEASUREMENT RESULTS: Intervals: Rate: 83 TX: 164 QRSD: 84 QT: 396 QTc: 465 [place]: P: 65 TX: 164 QRS: -20 T: 30 INTERPRETIVE STATEMENTS: Normal sinus rhythm Normal ECG Compared to ECG 06/15/2009 07:43:18 No significant changes Electronically Signed On 03-17-20 05:56:31 CDT by Lukas Hopkins
--- NOTE | 2020-03-17 09:57 | RAD REPORT ---
EXAM DESCRIPTION: CT - Chest For Pe Angio - 03/16/2020 10:36 pm CLINICAL HISTORY: The patient is 69 years old and is Female; shortness of breath TECHNIQUE: Axial computed tomographic angiography images of the chest with intravenous contrast. T his CT exam was performed using one or more of the following dose reduction techniques: automated e xposure control, adjustment of the mA and/or kV according to patient size, and/or use of iterative re construction technique. MIP reconstructed images were created and reviewed. Oblique reformatted images were created and reviewed. DLP: 552 mGy*cm COMPARISON: Chest radiograph of the same day. FINDINGS: PULMONARY ARTERIES: Unremarkable. No pulmonary embolism. AORTA: No acute findings. No thoracic aortic aneurysm. LUNGS: Interlobular septal thickening. No focal consolidation or groundglass opacity. Linear densi ties at the lung bases. PLEURAL SPACE: Unremarkable. No significant effusion. No pneumothorax. HEART: Unremarkable. No cardiomegaly. No significant pericardial effusion. No evidence of RV dysfunction. MEDIASTINUM: Small hiatal hernia. THYROID: Prior thyroidectomy. BONES/JOINTS: Advanced bilateral shoulder joint effusion changes. No acute fracture. No dislocation. SOFT TISSUES: Unremarkable. LYMPH NODES: Unremarkable. No enlarged lymph nodes. IMPRESSION: 1. No pulmonary embolus. 2. Mild interstitial edema and bibasilar atelectasis versus scarring. Electronically signed by: Natalio Vázquez DO 03/16/2020 9:50 PM CDT Due to temporary technical issues with the PACS/Fluency reporting system, reports are being signed by the in house radiologist without review as a courtesy to ensure prompt reporting. The interpreting r adiologist is fully responsible for the content of the report.
== END 2020-03-16 23:12 | disposition home or self-care (01) ==
LOC: ER 18:46
DX: R53.83 Other fatigue (principal); I10 Essential (primary) hypertension; E03.9 Hypothyroidism, unspecified
CPT/HCPCS: 93005 ×2; 85025; 80048; 36415; 83735; 85610; 80076; 84484; 83880; 71275; 71045; 99284; Q9967

== ENCOUNTER 2023-03-03 18:46 | Emergency (ER) | payer BC ==
--- OUTSIDE RECORDS SUMMARY | 2023-03-03 18:55 | XMS REPORT | Continuity of Care Document ---
:1950 Author Organization [facility] t Address [address] [facility]. [address] [place] [address] Care Team Providers Name Role Phone Asked, No Pcp Primary Care Physician Unavailable BRENNAN MCKEON Attending Clinician Unavailable BRENNAN MCKEON Attending Clinician Unavailable Doctor Unassigned, [place] Attending Clinician Unavailable YOMAIRA Attending Clinician Unavailable Lab, Ang - Db Attending Clinician Unavailable Klever Malcolm MD Attending Clinician KLEVER MALCOLM Attending Clinician Unavailable Josefa Ko Attending Clinician Valentino Caballero Attending Clinician [phone] Kala Engel MD Attending Clinician Hang Peraza MD Attending Clinician Candida Tomlinson CRNA Attending Clinician HERNANDEZ FRAUSTO Attending Clinician Unavailable Karolyn Trujillo RN Attending Clinician CAROL AGUIRRE Attending Clinician Unavailable LISANDRO DOVER Attending Clinician Unavailable ELENI MAJANO Attending Clinician Unavailable Only, Adc Test Attending Clinician Unavailable Eleni Majano MD Attending Clinician Gerard Rosado Attending Clinician Reyes Vasquez Attending Clinician Stan Segal Attending Clinician YOMAIRA Admitting Clinician Unavailable KALA ENGEL Admitting Clinician Unavailable CAROL AGUIRRE Admitting Clinician Unavailable Stan Segal Admitting Clinician Payers Payer Name Policy Type Policy Number Effective Date Expiration Date Abelardo garza BLUE ESSENTIALS O [id number] 2020 00:00:00 [place] [id number] 2020 00:00:00 Problems Condition Condition Condition Status Onset Resolution Last Treating Co mments Source Name Details Category Date Date Treatment Clinician Date Vitamin D Vitamin D Problem Active Swe [place] deficiency Deficiency 6-08 Co mmuni 00:00: ty 00 [facility] Microscopi Microscopi Problem Active S weeny c c 6-08 Communi hematuria Hematuria 00:00: ty 00 [facility] Acquired Acquired Disease Active 2021-08 Unive rs hypothyroi hypothyroi 0-26 it y of dism dism 00:00: [address] Prediabete Prediabete Problem Active S weeny s s 5-05 Communi 00:00: ty 00 [facility] Diverticul Diverticul Problem Active S weeny ar disease ar Disease 7-29 Co mmuni 00:00: ty 00 [facility] Hypertroph Hypertroph Disease Active M ethodi y of nasal y of nasal 6-25 st turbinates turbinates 00:00: Ho spita 00 l Chronic Chronic Disease Active Methodi ethmoidal ethmoidal 6-25 st sinusitis sinusitis 00:00: Hosp unique 00 l Nasal Nasal Disease Active [facility] congestion congestion 6-25 st 00:00: Hospita 00 l Dyspnea Dyspnea Problem Active [place] 1-21 Communi 00:00: ty 00 [facility] Acute Acute Disease Active 2019-08 Univers hypoxemic hypoxemic 2-11 ity of [place]ir[place] failure 00 Medi kellee due to due to Branch COVID-19 COVID-19 Dyspnea Dyspnea Disease Active 2019-08 Univers 2-11 ity of 00:00: [address] Branch Hypertroph Hypertroph Problem Active S weeny y of nasal y of Nasal 9-24 Co mmuni turbinates Turbinates 00:00: ty 00 [facility] Hypothyroi Hypothyroi Problem Active S weeny dism dism 03-21 Communi 00:00: ty 00 [facility] Hypertensi Hypertensi Problem Active S weeny ve ve 03-21 Communi disorder Disorder 00:00: ty 00 [facility] HIP HIP Diagnosis Active 2016-2017-04-15 [facility] oria OSTEOARTHR OSTEOARTHR 6-14 18:19:00 l ITIS ITIS 00:00: [place] Active 00 02/02/2017 [facility] Osteoarthr Osteoarth Problem Active 2020-04-18 Memoria itis ritis 21:30:15 l (disorder) (disorder) He rmann Active Problem 04/18/2020 [facility]ID [place] Hyperthyro Hyperthyr Problem Resolve 2020-04-18 Memoria idism oidism d 21:30:15 l (disorder) (disorder) He rmann Resolved Problem 04/18/2020 [facility], OPID [place] Menopause Menopause Problem Resolve 2020-04-18 Memoria present present d 21:30:15 l (finding) (finding) Herm regino Resolved Problem 04/18/2020 [facility], OPID [place] Allergies, Adverse Reactions, Alerts Allergy Allergy Status Severity Reaction(s) Onset Inactive Treating Comm ents Source Name Type Date Date Clinician nka nka Active Memoria l Eduin NKFA NKFA Active Memoria l Eduin NO KNOWN Drug Active Univers ALLERGIE Class ity of S [facility] Social History Social Habit Start Date Stop Date Quantity Comments Source History SDOH Yazdanism Alcohol Std Drinks Hospit al History SDOH [facility] Binge Hospital Gender identity [facility] Sexual orientation [facility] History of tobacco Current smoker [facility] use Hospital History SDOH Yazdanism Alcohol Comment Hospital Exposure to 2022-12-12 2022-12-22 Not sure University of SARS-CoV-2 (event) 00:00:00 11:27:00 [facility] Tobacco use and 2022-08-23 2022-08-23 Smokeless Universit y of exposure 00:00:00 00:00:00 tobacco non-user [facility] Alcohol intake 2021-02-16 2021-02-16 Lifetime Yazdanism 00:00:00 00:00:00 non-drinker Hospital (finding) History of Social 2021-02-16 2021-02-[address] function 00:00:00 00:00:00 Hospital History SDOH 2020-06-25 2020-06-25 1 Yazdanism Alcohol Frequency 00:00:00 00:00:00 Hospita l Social History 2017-02-07 2017-02-07 [facility] 23:25:11 23:25:11 Sex [birth year] Yazdanism 00:00:00 00:00:00 Hospital Smoking Status Start Date Stop Date Source Never smoked tobacco [facility] Ex-smoker 2020-06-25 00:00:00 2020-06-25 00:00:00 [facility] Medications Ordered Filled Start Stop Current Ordering Indication Dosage Frequency Signature Comments Components Source Medication Medication Date Date Medication? Clinician (SIG) Name Name levothyroxi Yes [id number] 88ug Take 1 Univers ne 5-14 tablet by ity of (SYNTHROID) 00:00: mouth [place] 88 mcg 00 every Medical tablet morning. Branch levothyroxi Yes [id number] 88ug Take 1 Univers ne 5-14 tablet by ity of (SYNTHROID) 00:00: mouth [place] 88 mcg 00 every Medical tablet morning. Branch levothyroxi Yes [id number] 88ug Take 1 Univers ne 5-14 tablet by ity of (SYNTHROID) 00:00: mouth [place] 88 mcg 00 every Medical tablet morning. Branch amLODIPine 2022-0 2022- No 5mg Take 5 mg U nivers 5 mg tablet 12-22-03 by mouth ity of 12:15: 00:00 daily. [place] 16 :00 Medical Branch amLODIPine 2022-0 2022- No 5mg Take 5 mg U nivers 5 mg tablet 12-22-03 by mouth ity of 12:15: 00:00 daily. [place] 16 :00 Medical Branch hydroCHLORO 2022-0 2022- No 25mg Take 25 mg Univers thiazide 25 - 05-03 by mouth ity of mg tablet 11:58: 00:00 daily. [place] 17 :00 Medical Branch hydroCHLORO 2022-0 2023- No 25mg Take 25 mg Univers thiazide 25 5-03 05-03 by mouth ity of mg tablet 11:58: 00:00 daily. [place] 17 :00 Medical Branch levothyroxi 3-0 Yes [id number] 100ug Take 1 Univers ne 5-03 tablet by ity of (SYNTHROID) 00:00: mouth [place] 100 mcg 00 every Medical tablet morning. Branch amLODIPine 3-0 Yes [id number] 10mg Take 1 U nivers 10 mg 5-03 tablet by ity of tablet 00:00: mouth in [place] 00 the Medical morning. Branch levothyroxi 3-0 Yes [id number] 100ug Take 1 Univers ne 5-03 tablet by ity of (SYNTHROID) 00:00: mouth [place] 100 mcg 00 every Medical tablet morning. Branch amLODIPine 3-0 Yes [id number] 10mg Take 1 U nivers 10 mg 5-03 tablet by ity of tablet 00:00: mouth in [place] 00 the Medical morning. Branch levothyroxi 3-0 Yes [id number] 100ug Take 1 Univers ne 5-03 tablet by ity of (SYNTHROID) 00:00: mouth [place] 100 mcg 00 every Medical tablet morning. Branch amLODIPine 3-0 Yes [id number] 10mg Take 1 U nivers 10 mg 5-03 tablet by ity of tablet 00:00: mouth in [place] 00 the Medical morning. Branch amLODIPine 3-0 Yes [id number] 10mg Take 1 U nivers 10 mg 5-03 tablet by ity of tablet 00:00: mouth in [place] 00 the Medical morning. Branch amLODIPine 3-0 Yes [id number] 10mg Take 1 U nivers 10 mg 5-03 tablet by ity of tablet 00:00: mouth in [place] 00 the Medical morning. Branch amLODIPine 3-0 Yes [id number] 10mg Take 1 U nivers 10 mg 5-03 tablet by ity of tablet 00:00: mouth in [place] 00 the Medical morning. Branch levothyroxi 2023-0 2023- No [id number] 100ug Take 1 Univers ne 5-03 05-14 tablet by ity of (SYNTHROID) 00:00: 00:00 [place] 100 mcg 00 :00 every Medical tablet morning. Branch levothyroxi 2023-0 Yes [id number] 100ug Take 1 Univers ne 4-06 tablet by ity of (SYNTHROID) 00:00: mouth [place] 100 mcg 00 every Medical tablet morning. Branch levothyroxi 2022-0 Yes [id number] 100ug Take 1 Univers ne 4-06 tablet by ity of (SYNTHROID) 00:00: mouth [place] 100 mcg 00 every Medical tablet morning. Branch levothyroxi 2022-0 Yes [id number] 100ug Take 1 Univers ne 4-06 tablet by ity of (SYNTHROID) 00:00: mouth [place] 100 mcg 00 every Medical tablet morning. Branch levothyroxi 2022-0 3- No [id number] 100ug Take 1 Univers ne 4-06 05-03 tablet by ity of (SYNTHROID) 00:00: 00:00 [place] 100 mcg 00 :00 every Medical tablet morning. Branch levothyroxi 2022-0 3- No [id number] 100ug Take 1 Univers ne 4-06 05-03 tablet by ity of (SYNTHROID) 00:00: 00:00 [place] 100 mcg 00 :00 every Medical tablet morning. Branch hydroCHLORO 3-0 Yes 25mg Take 25 mg Univers thiazide 25 1-02 by mouth ity of mg tablet 11:46: daily. [address] amLODIPine 3-0 Yes 5mg Take 5 mg Un marielena 5 mg tablet 1-02 by mouth ity of 11:46: daily. [address] carvediloL 3-0 Yes 25mg Take 25 mg U nivers 25 mg 1-02 by mouth 2 ity of tablet 11:46: (two) [place] [address] times Medical daily with Branch meals. hydroCHLORO 3-0 Yes 25mg Take 25 mg Univers thiazide 25 1-02 by mouth ity of mg tablet 11:46: daily. [address] amLODIPine 3-0 Yes 5mg Take 5 mg Un marielena 5 mg tablet 1-02 by mouth ity of 11:46: daily. [address] carvediloL 3-0 Yes 25mg Take 25 mg U nivers 25 mg 1-02 by mouth 2 ity of tablet 11:46: (two) [place] [address] times Medical daily with Branch meals. hydroCHLORO 2023-0 Yes 25mg Take 25 mg Univers thiazide 25 1-02 by mouth ity of mg tablet 11:46: daily. [address] amLODIPine 2023-0 Yes 5mg Take 5 mg Un marielena 5 mg tablet 1-02 by mouth ity of 11:46: daily. [address] Branch carvediloL 3-0 Yes 25mg Take 25 mg U nivers 25 mg 1-02 by mouth 2 ity of tablet 11:46: (two) [place] [address] times Medical daily with Branch meals. hydroCHLORO 3-0 Yes 25mg Take 25 mg Univers thiazide 25 1-02 by mouth ity of mg tablet 11:46: daily. [address] amLODIPine 3-0 Yes 5mg Take 5 mg Un marielena 5 mg tablet 1-02 by mouth ity of 11:46: daily. [address] Branch carvediloL 2022-0 Yes 25mg Take 25 mg U nivers 25 mg 1-02 by mouth 2 ity of tablet 11:46: (two) [address] Medical daily with Branch meals. hydroCHLORO 3-0 Yes 25mg Take 25 mg Univers thiazide 25 1-02 by mouth ity of mg tablet 11:46: daily. [address] amLODIPine 3-0 Yes 5mg Take 5 mg Un marielena 5 mg tablet 1-02 by mouth ity of 11:46: daily. [address] Branch carvediloL 2022-0 Yes 25mg Take 25 mg U nivers 25 mg 1-02 by mouth 2 ity of tablet 11:46: (two) [place] [address] times Medical daily with Branch meals. hydroCHLORO 3-0 Yes 25mg Take 25 mg Univers thiazide 25 1-02 by mouth ity of mg tablet 11:46: daily. [address] amLODIPine 3-0 Yes 5mg Take 5 mg Un marielena 5 mg tablet 1-02 by mouth ity of 11:46: daily. [address] carvediloL 3-0 Yes 25mg Take 25 mg U nivers 25 mg 1-02 by mouth 2 ity of tablet 11:46: (two) [address] Medical daily with Branch meals. hydroCHLORO 3-0 Yes 25mg Take 25 mg Univers thiazide 25 1-02 by mouth ity of mg tablet 11:46: daily. [address] amLODIPine 3-0 Yes 5mg Take 5 mg Un marielena 5 mg tablet 1-02 by mouth ity of 11:46: daily. [place] 58 Medical Branch carvediloL 2023-0 Yes 25mg Take 25 mg U nivers 25 mg 1-02 by mouth 2 ity of tablet 11:46: (two) [place] 58 times Medical daily with Branch meals. hydroCHLORO 2023-0 Yes 25mg Take 25 mg Univers thiazide 25 1-02 by mouth ity of mg tablet 11:46: daily. [address] amLODIPine 2023-0 Yes 5mg Take 5 mg Un marielena 5 mg tablet 1-02 by mouth ity of 11:46: daily. [address] Branch carvediloL 2023-0 Yes 25mg Take 25 mg U nivers 25 mg 1-02 by mouth 2 ity of tablet 11:46: (two) [place] [address] times Medical daily with Branch meals. hydroCHLORO 2023-0 Yes 25mg Take 25 mg Univers thiazide 25 1-02 by mouth ity of mg tablet 11:46: daily. [address] amLODIPine 3-0 Yes 5mg Take 5 mg Un marielena 5 mg tablet 1-02 by mouth ity of 11:46: daily. [address] carvediloL 2023-0 Yes 25mg Take 25 mg U nivers 25 mg 1-02 by mouth 2 ity of tablet 11:46: (two) [place] 58 times Medical daily with Branch meals. carvediloL 2023-0 Yes 25mg Take 25 mg U nivers 25 mg 1-02 by mouth 2 ity of tablet 11:46: (two) [place] [address] times Medical daily with Branch meals. carvediloL 2023-0 Yes 25mg Take 25 mg U nivers 25 mg 1-02 by mouth 2 ity of tablet 11:46: (two) [place] 58 times Medical daily with Branch meals. carvediloL 2023-0 Yes 25mg Take 25 mg U nivers 25 mg 1-02 by mouth 2 ity of tablet 11:46: (two) [place] 58 times Medical daily with Branch meals. carvediloL 2023-0 Yes 25mg Take 25 mg U nivers 25 mg 1-02 by mouth 2 ity of tablet 11:46: (two) [place] [address] times Medical daily with Branch meals. carvediloL 2023-0 Yes 25mg Take 25 mg U nivers 25 mg 1-02 by mouth 2 ity of tablet 11:46: (two) [place] 58 times Medical daily with Branch meals. carvediloL Yes 25mg Take 25 mg U nivers 25 mg -02 by mouth 2 ity of tablet 11:46: (two) [place] 58 times Medical daily with Branch meals. levothyroxi 2021-08 Yes [id number] 100ug Take 1 Univers ne 0-16 tablet by ity of (SYNTHROID) 00:00: mouth [place] 100 mcg 00 every Medical tablet morning. Branch levothyroxi 2021-08 Yes [id number] 100ug Take 1 Univers ne 0-16 tablet by ity of (SYNTHROID) 00:00: mouth [place] 100 mcg 00 every Medical tablet morning. Branch levothyroxi 2021-08 Yes [id number] 100ug Take 1 Univers ne 0-16 tablet by ity of (SYNTHROID) 00:00: mouth [place] 100 mcg 00 every Medical tablet morning. Branch levothyroxi 2021-08 Yes [id number] 100ug Take 1 Univers ne 0-16 tablet by ity of (SYNTHROID) 00:00: mouth [place] 100 mcg 00 every Medical tablet morning. Branch levothyroxi 2021-08 Yes [id number] 100ug Take 1 Univers ne 0-16 tablet by ity of (SYNTHROID) 00:00: mouth [place] 100 mcg 00 every Medical tablet morning. Branch levothyroxi 2021-08 Yes [id number] 100ug Take 1 Univers ne 0-16 tablet by ity of (SYNTHROID) 00:00: mouth [place] 100 mcg 00 every Medical tablet morning. Branch levothyroxi 2021-08 Yes [id number] 100ug Take 1 Univers ne 0-16 tablet by ity of (SYNTHROID) 00:00: mouth [place] 100 mcg 00 every Medical tablet morning. Branch levothyroxi 2021-08 Yes [id number] 100ug Take 1 Univers ne 0-16 tablet by ity of (SYNTHROID) 00:00: mouth [place] 100 mcg 00 every Medical tablet morning. Branch levothyroxi 2021-08- No [id number] 100ug Take 1 Univers ne 0-16 04-06 tablet by ity of (SYNTHROID) 00:00: 00:00 [place] 100 mcg 00 :00 every Medical tablet morning. Branch levothyroxi 2021-08- No [id number] 100ug Take 1 Univers ne 0-16 04-06 tablet by ity of (SYNTHROID) 00:00: 00:00 [place] 100 mcg 00 :00 every Medical tablet morning. [place] levothyroxi 0 Yes [id number] 112ug Take 1 Univers ne 8-01 tablet by ity of (SYNTHROID) 00:00: mouth [place] 112 mcg 00 every Medical tablet morning. [place] levothyroxi 0 Yes [id number] 112ug Take 1 Univers ne 8-01 tablet by ity of (SYNTHROID) 00:00: mouth [place] 112 mcg 00 every Medical tablet morning. Branch levothyroxi 2021- No [id number] 112ug Take 1 Univers ne 8-01 10-16 tablet by ity of (SYNTHROID) 00:00: 00:00 [place] 112 mcg 00 :00 every Medical tablet morning. [place] levothyroxi 2021- No [id number] 112ug Take 1 Univers ne 8-01 10-16 tablet by ity of (SYNTHROID) 00:00: 00:00 [place] 112 mcg 00 :00 every Medical tablet morning. [place] levothyroxi 2021- No [id number] 112ug Take 1 Univers ne 8-01 10-16 tablet by ity of (SYNTHROID) 00:00: 00:00 [place] 112 mcg 00 :00 every Medical tablet morning. [place] SYNTHROID 2021- No [id number] 125ug Take 1 Univers 125 mcg 6-06 08- tablet by ity of tablet 00:00: 00:00 mouth [place] 00 :00 every Medical morning. [place] Vitamin D2 Vitamin D2 No Vitamin D2 [place] two times two times 7-29 two times Communi daily daily 00:00: daily ty 00 [facility] Vitamin D2 Vitamin D2 No Vitamin D2 [place] two times two times 7-29 two times Communi daily daily 00:00: daily ty 00 [facility] Vitamin D2 Vitamin D2 No Vitamin D2 [place] two times two times 7-29 two times Communi daily daily 00:00: daily ty 00 [facility] acetaminoph 2020- No [id number] 1{tbl} Q4H Take 1 Methodi en-codeine 6- 07-[address] (TYLENOL 00:00: 04:59 mouth Hospita WITH 00 :00 every 4 l CODEINE #3) (four) 300-30 mg hours as per tablet needed for moderate pain for up to 7 days .acute pain. azithromyci 2020-2020- No Take 2 Met hodi n 02-[address] (Zithromax 00:00: 04:59 (500 mg Hos gilbert Z-Misael) 250 00 :00 total) by l MG tablet mouth daily for 1 day, THEN 1 tablet (250 mg total) daily for 4 days. hydroCHLORO 2019-08 Yes 25mg Take 25 mg Univers thiazide 25 2-16 by mouth ity of mg tablet 19:35: daily. [address] amLODIPine 2019-08 Yes 5mg Take 5 mg Un marielena 5 mg tablet 2-16 by mouth ity of 19:35: daily. [address] carvediloL 2019-08 Yes 25mg Take 25 mg U nivers (COREG) 25 2-16 by mouth 2 ity of mg tablet 19:35: (two) [address] daily with Branch meals. hydroCHLORO 2019-08 Yes 25mg Take 25 mg Univers thiazide 25 2-16 by mouth ity of mg tablet 19:35: daily. [address] amLODIPine 2019-08 Yes 5mg Take 5 mg Un marielena 5 mg tablet 2-16 by mouth ity of 19:35: daily. [address] carvediloL 2019-08 Yes 25mg Take 25 mg U nivers (COREG) 25 2-16 by mouth 2 ity of mg tablet 19:35: (two) [address] daily with Branch meals. hydroCHLORO 2019-08 Yes 25mg Take 25 mg Univers thiazide 25 2-16 by mouth ity of mg tablet 19:35: daily. [address] amLODIPine 2019-08 Yes 5mg Take 5 mg Un marielena 5 mg tablet 2-16 by mouth ity of 19:35: daily. [address] carvediloL 2019-08 Yes 25mg Take 25 mg U nivers (COREG) 25 2-16 by mouth 2 ity of mg tablet 19:35: (two) [address] daily with Branch meals. hydroCHLORO 2019-08 Yes 25mg Take 25 mg Univers thiazide 25 2-16 by mouth ity of mg tablet 19:35: daily. [address] amLODIPine 2019-08 Yes 5mg Take 5 mg Un marielena 5 mg tablet 2-16 by mouth ity of 19:35: daily. [address] carvediloL 2019-08 Yes 25mg Take 25 mg U nivers (COREG) 25 2-16 by mouth 2 ity of mg tablet 19:35: (two) [address] daily with Branch meals. hydroCHLORO 2019- Yes 25mg Take 25 mg Univers thiazide 25 2-16 by mouth ity of mg tablet 19:35: daily. [address] amLODIPine 2019-08 Yes 5mg Take 5 mg Un marielena 5 mg tablet 2-16 by mouth ity of 19:35: daily. [address] carvediloL 2019-08 Yes 25mg Take 25 mg U nivers (COREG) 25 2-16 by mouth 2 ity of mg tablet 19:35: (two) [address] daily with Branch meals. hydroCHLORO 2019-08 Yes 25mg Take 25 mg Univers thiazide 25 2-16 by mouth ity of mg tablet 19:35: daily. [address] amLODIPine 2019-08 Yes 5mg Take 5 mg Un marielena 5 mg tablet 2-16 by mouth ity of 19:35: daily. [address] carvediloL 2019-08 Yes 25mg Take 25 mg U nivers (COREG) 25 2-16 by mouth 2 ity of mg tablet 19:35: (two) [address] daily with Branch meals. hydroCHLORO 2019-08 Yes 25mg Take 25 mg Univers thiazide 25 2-16 by mouth ity of mg tablet 19:35: daily. [address] amLODIPine 2019-08 Yes 5mg Take 5 mg Un marielena 5 mg tablet 2-16 by mouth ity of 19:35: daily. [address] carvediloL 2019-08 Yes 25mg Take 25 mg U nivers (COREG) 25 2-16 by mouth 2 ity of mg tablet 19:35: (two) [address] daily with Branch meals. hydroCHLORO 2019- Yes 25mg Take 25 mg Univers thiazide 25 2-16 by mouth ity of mg tablet 19:35: daily. [address] amLODIPine 2019-08 Yes 5mg Take 5 mg Un marielena 5 mg tablet 2-16 by mouth ity of 19:35: daily. [address] Branch carvediloL 2020-1 Yes 25mg Take 25 mg U nivers (COREG) 25 2-16 by mouth 2 ity of mg tablet 19:35: (two) [place] [address] times Medical daily with Branch meals. [place] 2020-0 Yes 60mg QD Take 60 mg Meth[facility] di Thyroid 60 9-[address] mg tablet 00:00: daily. Hospit a l levothyroxi 2020-0 Yes 250ug QD Take 250 M ethodi ne 9-[address] (SYNTHROID) 00:00: mouth Hospi ta 50 mcg 00 daily. l tablet [place] 2020-0 Yes 60mg QD Take 60 mg Metho di Thyroid 60 9-[address] mg tablet 00:00: daily. Hospit a 00 l levothyroxi 2020-0 Yes 250ug QD Take 250 M ethodi ne 9-[address] (SYNTHROID) 00:00: mouth Hospi ta 50 mcg 00 daily. l tablet amLODIPine 2020-0 Yes 5mg QD Take 5 mg Me thodi (NORVASC) 5 9-[address] mg tablet 00:00: daily. Hospit a l amLODIPine 2020-0 Yes 5mg QD Take 5 mg Me thodi (NORVASC) 5 9-[address] mg tablet 00:00: daily. Hospit a 00 l carvediloL 2020-0 Yes 25mg Q.5D Take 25 mg M ethodi (COREG) 25 8-[address] MG tablet 00:00: (two) Hospita 00 times a l day. carvediloL 2020-0 Yes 25mg Q.5D Take 25 mg M ethodi (COREG) 25 8-[address] MG tablet 00:00: (two) Hospita 00 times a l day. remove No Notes: Memoria patch 6-30 Remove old l 15:00: patch Eduin 00 before applicatio n of new patch. remove No Notes: Memoria patch 6-30 Remove old l 15:00: patch [place] 00 before applicatio n of new patch. remove No Notes: Memoria patch 6-30 Remove old l 15:00: patch Eduin 00 before applicatio n of new patch. remove No Notes: Memoria patch 30 Remove old l 15:00: patch [place] 00 before applicatio n of new patch. Aspirin 325 Yes 325 mg = 1 Memoria MG Enteric 6-28 tab, PO, l Coated 16:13: Q12H, # 60 Kaia nn Tablet 00 tab, 0 Refill(s), Pharmacy: [facility] #[id number] Docusate Yes 100 mg = 1 Mem oria Sodium 100 6-28 cap, PO, l MG Oral 16:13: BID, # 20 Kaia nn Capsule 00 cap, 0 Refill(s), Pharmacy: [facility] #[id number] POLYETHYLEN Yes 17 gm, PO, Memoria E GLYCOL 6-28 Daily, X l [id number] 16:13: 15 day, # Herm regino MG/ML Oral 00 255 gm, 0 Solution Refill(s), [Miralax] Pharmacy: [facility] #[id number] Acetaminoph Yes 1-2 tab, Me moria en 325 MG / 6-28 PO, Q6H, l Hydrocodone 16:13: PRN Pain, H ermann Bitartrate 00 X 10 day, 10 MG Oral # 60 tab, Tablet 0 [[place] Refill(s) 10/325] Aspirin 325 Yes 325 mg = 1 Memoria MG Enteric 6-28 tab, PO, l Coated 16:13: Q12H, # 60 Kaia nn Tablet 00 tab, 0 Refill(s), Pharmacy: [facility] #[id number] Docusate Yes 100 mg = 1 Mem oria Sodium 100 6-28 cap, PO, l MG Oral 16:13: BID, # 20 Kaia nn Capsule 00 cap, 0 Refill(s), Pharmacy: [facility] #[id number] POLYETHYLEN Yes 17 gm, PO, Memoria E GLYCOL 6-28 Daily, X l [id number] 16:13: 15 day, # Herm regino MG/ML Oral 00 255 gm, 0 Solution Refill(s), [Miralax] Pharmacy: [facility] #[id number] Acetaminoph Yes 1-2 tab, Me moria en 325 MG / 6-28 PO, Q6H, l Hydrocodone 16:13: PRN Pain, H ermann Bitartrate 00 X 10 day, 10 MG Oral # 60 tab, Tablet 0 [[place] Refill(s) 10/325] Aspirin 325 Yes 325 mg = 1 Memoria MG Enteric 6-28 tab, PO, l Coated 16:13: Q12H, # 60 Kaia nn Tablet 00 tab, 0 Refill(s), Pharmacy: [facility] #[id number] Docusate Yes 100 mg = 1 Mem oria Sodium 100 6-28 cap, PO, l MG Oral 16:13: BID, # 20 Kaia nn Capsule 00 cap, 0 Refill(s), Pharmacy: [facility] #[id number] POLYETHYLEN 2017- Yes 17 gm, PO, Memoria E GLYCOL 6-28 Daily, X l [id number] 16:13: 15 day, # Herm regino MG/ML Oral 00 255 gm, 0 Solution Refill(s), [Miralax] Pharmacy: [facility] #[id number] Acetaminoph 2017- Yes 1-2 tab, Me moria en 325 MG / 6-28 PO, Q6H, l Hydrocodone 16:13: PRN Pain, H ermann Bitartrate 00 X 10 day, 10 MG Oral # 60 tab, Tablet 0 [[place] Refill(s) 10/325] Aspirin 325 Yes 325 mg = 1 Memoria MG Enteric 6-28 tab, PO, l Coated 16:13: Q12H, # 60 Kaia nn Tablet 00 tab, 0 Refill(s), Pharmacy: [facility] #[id number] Docusate Yes 100 mg = 1 Mem oria Sodium 100 6-28 cap, PO, l MG Oral 16:13: BID, # 20 Kaia nn Capsule 00 cap, 0 Refill(s), Pharmacy: [facility] #[id number] POLYETHYLEN 2017-0 Yes 17 gm, PO, Memoria E GLYCOL 6-28 Daily, X l [id number] 16:13: 15 day, # Herm regino MG/ML Oral 00 255 gm, 0 Solution Refill(s), [Miralax] Pharmacy: [id number] Acetaminoph 2017- Yes 1-2 tab, Me moria en 325 MG / 6-28 PO, Q6H, l Hydrocodone 16:13: PRN Pain, H ermann Bitartrate 00 X 10 day, 10 MG Oral # 60 tab, Tablet 0 [[place] Refill(s) 10/325] Milk of No Notes: Memoria Magnesia 6-28 (Same as: l 14:00: Milk of Eduin Ary, MOM) Hydrochloro No Notes: Matias kate thiazide 25 6-28 (Same as: l MG Oral 14:00: Hydrodiuri Herm regino Tablet 00 l) With food. Amlodipine No Notes: Memor ia 6-28 (Same as: l 14:00: Norvasc) [place] 00 Milk of No Notes: Memoria Magnesia 6-28 (Same as: l 14:00: Milk of Eduin Magnbailey, MOM) Hydrochloro No Notes: Matias kate thiazide 25 6-28 (Same as: l MG Oral 14:00: Hydrodiuri Herm regino Tablet 00 l) With food. Amlodipine No Notes: Memor ia 6-28 (Same as: l 14:00: Norvasc) [place] 00 Milk of No Notes: Memoria Magnesia 6-28 (Same as: l 14:00: Milk of [place] Ary, MOM) Hydrochloro No Notes: Matias kate thiazide 25 6-28 (Same as: l MG Oral 14:00: Hydrodiuri Herm regino Tablet 00 l) With food. Amlodipine No Notes: Memor ia 6-28 (Same as: l 14:00: Norvasc) [place] 00 Milk of No Notes: Memoria Magnesia 6-28 (Same as: l 14:00: Milk of Eduin Ary, MOM) Hydrochloro No Notes: Matias kate thiazide 25 6-28 (Same as: l MG Oral 14:00: Hydrodiuri Herm regino Tablet 00 l) With food. Amlodipine No Notes: Memor ia 6-28 (Same as: l 14:00: Norvasc) Eduin 00 Hedrick No Notes: Memoria Thyroid 6-28 (Same As: l 12:30: Hedrick [place] 00 Thyroid, S-P-T) Hedrick No Notes: Memoria Thyroid 6-28 (Same As: l 12:30: Hedrick Eduin 00 Thyroid, S-P-T) Hedrick No Notes: Memoria Thyroid 6-28 (Same As: l 12:30: Hedrick [place] 00 Thyroid, S-P-T) Hedrick No Notes: Memoria Thyroid 6-28 (Same As: l 12:30: Hedrick [place] 00 Thyroid, S-P-T) Thyroxine No Notes: Memori a 6-28 Take 1 l 11:30: hour Eduin 00 before or 2 hours after meal; Enteral feeds may interefere with the absorption of this medication .(Same as:Levothr oid, Synthroid) Thyroxine No Notes: Memori a 6-28 Take 1 l 11:30: hour Eduin 00 before or 2 hours after meal; Enteral feeds may interefere with the absorption of this medication .(Same as:Levothr oid, Synthroid) Thyroxine No Notes: Memori a 6-28 Take 1 l 11:30: hour [place] 00 before or 2 hours after meal; Enteral feeds may interefere with the absorption of this medication .(Same as:Levothr oid, Synthroid) Thyroxine No Notes: Memori a 6-28 Take 1 l 11:30: hour [place] 00 before or 2 hours after meal; Enteral feeds may interefere with the absorption of this medication .(Same as:Levothr oid, Synthroid) acetaminoph No Notes: Max Memoria en 6-28 acetaminop l 05:00: hen 4000 [place] 00 mg/day (4 gm/day). (Same as: Tylenol Extra Strength) acetaminoph No Notes: Max Memoria en 6-28 acetaminop l 05:00: hen 4000 [place] 00 mg/day (4 gm/day). (Same as: Tylenol Extra Strength) acetaminoph No Notes: Max Memoria en 6-28 acetaminop l 05:00: hen 4000 Eduin 00 mg/day (4 gm/day). (Same as: Tylenol Extra Strength) acetaminoph No Notes: Max Memoria en 6-28 acetaminop l 05:00: hen 4000 [place] 00 mg/day (4 gm/day). (Same as: Tylenol Extra Strength) Dulcolax No Notes: Memoria Laxative - (Same As: l 02:00: Dulcolax, [place] 00 Correctol) (Do Not Crush) "Do Not Crush" celecoxib No Notes: Memori a 6-28 NSAID. l 02:00: Please [place] 00 check indication . Not for seizure. (Same As: CeleBREX) Dulcolax No Notes: Memoria Laxative - (Same As: l 02:00: Dulcolax, Eduin 00 Correctol) (Do Not Crush) "Do Not Crush" celecoxib No Notes: Memori a 6-28 NSAID. l 02:00: Please [place] 00 check indication . Not for seizure. (Same As: CeleBREX) Dulcolax No Notes: Memoria Laxative - (Same As: l 02:00: Dulcolax, [place] 00 Correctol) (Do Not Crush) "Do Not Crush" celecoxib No Notes: Memori a 6-28 NSAID. l 02:00: Please Eduin 00 check indication . Not for seizure. (Same As: CeleBREX) Dulcolax No Notes: Memoria Laxative 02-16 (Same As: l 02:00: Dulcolax, [place] 00 Correctol) (Do Not Crush) "Do Not Crush" celecoxib No Notes: Memori a 6-28 NSAID. l 02:00: Please Eduin 00 check indication . Not for seizure. (Same As: CeleBREX) Acetaminoph No Notes: Matias kate en 02-15 Infuse l 23:00: over 15 Eduin 00 minutes Do not exceed 4gm/day of acetaminop hen MEDICATION WASTE Product Size: 1000 mg Product Wasted: ___ mg Tramadol No Notes: Not Mem oria 02-15 to exceed l 23:00: 400mg/day. Eduin 00 (Same As: Ultram) Acetaminoph No Notes: Matias kate en 02-15 Infuse l 23:00: over 15 [place] 00 minutes Do not exceed 4gm/day of acetaminop hen MEDICATION WASTE Product Size: 1000 mg Product Wasted: ___ mg Tramadol No Notes: Not Mem oria 6-27 to exceed l 23:00: 400mg/day. Eduin 00 (Same As: Ultram) Acetaminoph No Notes: Matias kate en 6-27 Infuse l 23:00: over 15 Eduin 00 minutes Do not exceed 4gm/day of acetaminop hen MEDICATION WASTE Product Size: 1000 mg Product Wasted: ___ mg Tramadol No Notes: Not Mem oria 6-27 to exceed l 23:00: 400mg/day. Eduin 00 (Same As: Ultram) Acetaminoph No Notes: Matias kate en 6-27 Infuse l 23:00: over 15 Eduin 00 minutes Do not exceed 4gm/day of acetaminop hen MEDICATION WASTE Product Size: 1000 mg Product Wasted: ___ mg Tramadol No Notes: Not Mem oria 6-27 to exceed l 23:00: 400mg/day. [place] 00 (Same As: Ultram) Tranexamic No Notes: Memor ia Acid 6-27 (Same As: l 22:33: Cyklokapro [place] 00 n) Tranexamic No Notes: Memor ia Acid 6-27 (Same As: l 22:33: Cyklokapro Eduin 00 n) Tranexamic No Notes: Memor ia Acid 6-27 (Same As: l 22:33: Cyklokapro Eduin 00 n) Tranexamic No Notes: Memor ia Acid 6-27 (Same As: l 22:33: Cyklokapro Eduin 00 n) Docusate No Notes: Memoria Sodium 100 6-27 (Same as: l MG Oral 22:00: Colace) [place] Capsule 00 (Do Not [Colace] Crush) Aspirin 325 No Notes: (Do Memoria MG Enteric 6-27 Not Crush) l Coated 22:00: Do not Eduin Tablet 00 crush or chew. Docusate No Notes: Memoria Sodium 100 6-27 (Same as: l MG Oral 22:00: Colace) [place] Capsule 00 (Do Not [Colace] Crush) Aspirin 325 No Notes: (Do Memoria MG Enteric 6-27 Not Crush) l Coated 22:00: Do not Eduin Tablet 00 crush or chew. Docusate No Notes: Memoria Sodium 100 6-27 (Same as: l MG Oral 22:00: Colace) [place] Capsule 00 (Do Not [Colace] Crush) Aspirin 325 No Notes: (Do Memoria MG Enteric 6-27 Not Crush) l Coated 22:00: Do not Eduin Tablet 00 crush or chew. Docusate No Notes: Memoria Sodium 100 6-27 (Same as: l MG Oral 22:00: Colace) [place] Capsule 00 (Do Not [Colace] Crush) Aspirin 325 No Notes: (Do Memoria MG Enteric 6-27 Not Crush) l Coated 22:00: Do not [place] Tablet 00 crush or chew. Aspirin No Notes: (Do Matias kate 6-27 Not Crush) l 20:34: Do not Eduin 00 crush or chew. Aspirin No Notes: (Do Matias kate 6-27 Not Crush) l 20:34: Do not Eduin 00 crush or chew. Aspirin No Notes: (Do Matias kate 6-27 Not Crush) l 20:34: Do not [place] 00 crush or chew. Aspirin No Notes: (Do Matias kate 6-27 Not Crush) l 20:34: Do not [place] 00 crush or chew. Ephedrine No 10 mg, Memori a 6-27 Route: l 19:34: IVP, Drug Eduin 00 form: INJ, ONCE, Dosing Weight 98.182, kg, Start date: 02/15/17 14:34:00 CDT, Stop date: 02/15/17 14:34:00 CDT Ephedrine No 10 mg, Memori a 6-27 Route: l 19:34: IVP, Drug [place] 00 form: INJ, ONCE, Dosing Weight 98.182, kg, Start date: 02/15/17 14:34:00 CDT, Stop date: 02/15/17 14:34:00 CDT Ephedrine 2017-0 No 10 mg, Memori a 6-27 Route: l 19:34: IVP, Drug Eduin 00 form: INJ, ONCE, Dosing Weight 98.182, kg, Start date: 02/15/17 14:34:00 CDT, Stop date: 02/15/17 14:34:00 CDT Ephedrine 2017-0 No 10 mg, Memori a 6-27 Route: l 19:34: IVP, Drug Eduin 00 form: INJ, ONCE, Dosing Weight 98.182, kg, Start date: 02/15/17 14:34:00 CDT, Stop date: 02/15/17 14:34:00 CDT Clindamycin 2017-0 No 600 mg, 50 Memoria 6-27 mL, Route: l 19:30: IVPB, Drug Eduin 00 form: INJ, Q6H, Dosing Weight 98.182, kg, Start date: 02/15/17 14:30:00 CDT, Stop date: 02/16/17 5:00:00 CDT, ABX Indication : Surgical Prophylaxi s Clindamycin 2017-0 No 600 mg, 50 Memoria 6-27 mL, Route: l 19:30: IVPB, Drug Eduin 00 form: INJ, Q6H, Dosing Weight 98.182, kg, Start date: 02/15/17 14:30:00 CDT, Stop date: 02/16/17 5:00:00 CDT, ABX Indication : Surgical Prophylaxi s Clindamycin 2017-0 No 600 mg, 50 Memoria 6-27 mL, Route: l 19:30: IVPB, Drug [place] 00 form: INJ, Q6H, Dosing Weight 98.182, kg, Start date: 02/15/17 14:30:00 CDT, Stop date: 02/16/17 5:00:00 CDT, ABX Indication : Surgical Prophylaxi s Clindamycin 2017-0 No 600 mg, 50 Memoria 6-27 mL, Route: l 19:30: IVPB, Drug Eduin 00 form: INJ, Q6H, Dosing Weight 98.182, kg, Start date: 02/15/17 14:30:00 CDT, Stop date: 02/16/17 5:00:00 CDT, ABX Indication : Surgical Prophylaxi s Cefazolin No Notes: Memori a 02-15 (Same As: l 19:00: Ancef, Eduin 00 Kefzol) MEDICATION WASTE Product Size: 1000 mg Product Wasted: ___ mg Cefazolin No Notes: Memori a 02-15 (Same As: l 19:00: Ancef, Eduin 00 Kefzol) MEDICATION WASTE Product Size: 1000 mg Product Wasted: ___ mg Cefazolin No Notes: Memori a 02-15 (Same As: l 19:00: Ancef, Eduin 00 Kefzol) MEDICATION WASTE Product Size: 1000 mg Product Wasted: ___ mg Cefazolin No Notes: Memori a 02-15 (Same As: l 19:00: Ancef, Eduin 00 Kefzol) MEDICATION WASTE Product Size: 1000 mg Product Wasted: ___ mg Diphenhydra No Notes: Matias kate mine 02-15 (Same as: l 17:36: Benadryl) Eduin 00 Bisacodyl No Notes: Memori a 02-15 (Same As: l 17:36: Dulcolax, [place] 00 Bisco-Lax) Ondansetron No Notes: Matias kate 02-15 (Same as: l 17:36: Zofran) Eduin 00 MEDICATION WASTE Product Size: 4 mg Product Wasted: ___ mg Morphine No Notes: Memoria 02-15 (Same l 17:36: as:MORPhin [place] 00 e Sulfate) Oxycodone No Notes: Memori a Hydrochlori 02-15 (Same as: l de 5 MG 17:36: Roxicodone Herm regino Oral Tablet 00 ) Diphenhydra No Notes: Matias kate mine 02-15 (Same as: l 17:36: Benadryl) [place] 00 Bisacodyl No Notes: Memori a 02-15 (Same As: l 17:36: Dulcolax, Eduin 00 Bisco-Lax) Ondansetron No Notes: Matias kate 6-27 (Same as: l 17:36: Zofran) [place] 00 MEDICATION WASTE Product Size: 4 mg Product Wasted: ___ mg Morphine No Notes: Memoria 6-27 (Same l 17:36: as:MORPhin [place] 00 e Sulfate) Oxycodone No Notes: Memori a Hydrochlori 6-27 (Same as: l de 5 MG 17:36: Roxicodone Herm regino Oral Tablet 00 ) Diphenhydra No Notes: Matias kate mine 6-27 (Same as: l 17:36: Benadryl) Eduin 00 Bisacodyl No Notes: Memori a 6-27 (Same As: l 17:36: Dulcolax, Eduin 00 Bisco-Lax) Ondansetron No Notes: Matias kate 6-27 (Same as: l 17:36: Zofran) Eduin 00 MEDICATION WASTE Product Size: 4 mg Product Wasted: ___ mg Morphine No Notes: Memoria 6-27 (Same l 17:36: as:MORPhin [place] 00 e Sulfate) Oxycodone No Notes: Memori a Hydrochlori 6-27 (Same as: l de 5 MG 17:36: Roxicodone Herm regino Oral Tablet 00 ) Diphenhydra No Notes: Matias kate mine 6-27 (Same as: l 17:36: Benadryl) [place] 00 Bisacodyl No Notes: Memori a 6-27 (Same As: l 17:36: Dulcolax, [place] 00 Bisco-Lax) Ondansetron No Notes: Matias kate 6-27 (Same as: l 17:36: Zofran) Eduin 00 MEDICATION WASTE Product Size: 4 mg Product Wasted: ___ mg Morphine No Notes: Memoria 6-27 (Same l 17:36: as:MORPhin Edu[place] 00 e Sulfate) Oxycodone No Notes: Memori a Hydrochlori 6-27 (Same as: l de 5 MG 17:36: Roxicodone Herm regino Oral Tablet 00 ) Naloxone No Notes: Memoria 6-27 Same as l 17:33: Narcan [place] Naloxone No Notes: Memoria 6-27 Same as l 17:33: Narcan Eduin Naloxone No Notes: Memoria 6-27 Same as l 17:33: Narcan Eduin Naloxone No Notes: Memoria 6-27 Same as l 17:33: Narcan [place] 00 Fentanyl / No Notes: Memor ia ropivacaine 6-27 (Same as l 17:29: Naropin-Juares [place] 00 blimaze) Fentanyl / No Notes: Memor ia ropivacaine 6-27 (Same as l 17:29: Naropin-Juares Eduin 00 blimaze) Fentanyl / No Notes: Memor ia ropivacaine 6-27 (Same as l 17:29: Naropin-Juares [place] 00 blimaze) Fentanyl / No Notes: Memor ia ropivacaine 6-27 (Same as l 17:29: Naropin-Juares Eduin 00 blimaze) Promethazin No Notes: Do M emoria e 6- not give l 17:26: IV push. Eduin (Same as: Phenergan) Morphine No Notes: Memoria 6-27 (Same l 17:26: as:MORPhin [place] 00 e Sulfate) Labetalol No 10 mg, 2 Matias kate 6-27 mL, Route: l 17:26: IVP, Drug [place] 00 form: INJ, Q5Min, Dosing Weight 98.182, kg, PRN Elevated BP, Start date: 02/15/17 12:26:00 CDT, Duration: 5 doses or times, Stop date: 02/15/17 20:25:00 CDT Hydralazine No Notes: Matias kate 6-27 (Same as: l 17:26: Apresoline [place] ) Push over 5 minutes Acetaminoph No Notes: Max Memoria en - acetaminop l 17:26: hen 4000 [place] 00 mg/day (4 gm/day). (Same as: Tylenol Extra Strength) Ondansetron No Notes: Matias kate 02-15 (Same as: l 17:26: Zofran) [place] 00 MEDICATION WASTE Product Size: 4 mg Product Wasted: ___ mg Meperidine No Notes: Memor ia 02-15 (Same as: l 17:26: Demerol) "Use Precaution in Elderly, Seizure disorders, and Renal impairment " Hydromorpho No Notes: Matias kate ne 02-15 Same as l 17:26: Dilaudid Naloxone No Notes: Memoria 02-15 Same as l 17:26: Narcan Flumazenil No Notes: Memor ia 02-15 (Same as: l 17:26: Romazicon) Promethazin No Notes: Do M emoria e 02-15 not give l 17:26: IV push. (Same as: Phenergan) Morphine No Notes: Memoria 02-15 (Same l 17:26: as:MORPhin e Sulfate) Labetalol No 10 mg, 2 Matias kate 02-15 mL, Route: l 17:26: IVP, Drug form: INJ, Q5Min, Dosing Weight 98.182, kg, PRN Elevated BP, Start date: 02/15/17 12:26:00 CDT, Duration: 5 doses or times, Stop date: 02/15/17 20:25:00 CDT Hydralazine No Notes: Matias kate 02-15 (Same as: l 17:26: Apresoline ) Push over 5 minutes Acetaminoph No Notes: Max Memoria en 02-15 acetaminop l 17:26: hen 4000 mg/day (4 gm/day). (Same as: Tylenol Extra Strength) Ondansetron No Notes: Matias kate 02-15 (Same as: l 17:26: Zofran) MEDICATION WASTE Product Size: 4 mg Product Wasted: ___ mg Meperidine No Notes: Memor ia 02-15 (Same as: l 17:26: Demerol) [place] 00 "Use Precaution in Elderly, Seizure disorders, and Renal impairment " Hydromorpho No Notes: Matias kate ne 02-15 Same as l 17:26: Dilaudid Naloxone No Notes: Memoria 02-15 Same as l 17:26: Narcan Flumazenil No Notes: Memor ia 02-15 (Same as: l 17:26: Romazicon) Promethazin No Notes: Do M emoria e 02-15 not give l 17:26: IV push. Eduin 00 (Same as: Phenergan) Morphine No Notes: Memoria 02-15 (Same l 17:26: as:MORPhin e Sulfate) Labetalol No 10 mg, 2 Matias kate 02-15 mL, Route: l 17:26: IVP, Drug form: INJ, Q5Min, Dosing Weight 98.182, kg, PRN Elevated BP, Start date: 02/15/17 12:26:00 CDT, Duration: 5 doses or times, Stop date: 02/15/17 20:25:00 CDT Hydralazine No Notes: Matias kate 02-15 (Same as: l 17:26: Apresoline ) Push over 5 minutes Acetaminoph No Notes: Max Memoria en 02-15 acetaminop l 17:26: hen 4000 [place] 00 mg/day (4 gm/day). (Same as: Tylenol Extra Strength) Ondansetron No Notes: Matias kate 02-15 (Same as: l 17:26: Zofran) MEDICATION WASTE Product Size: 4 mg Product Wasted: ___ mg Meperidine No Notes: Memor ia 02-15 (Same as: l 17:26: Demerol) "Use Precaution in Elderly, Seizure disorders, and Renal impairment " Hydromorpho No Notes: Matias kate ne 02-15 Same as l 17:26: Dilaudid Naloxone No Notes: Memoria 02-15 Same as l 17:26: Narcan Flumazenil No Notes: Memor ia 6- (Same as: l 17:26: Romazicon) Promethazin No Notes: Do M emoria e 6- not give l 17:26: IV push. Eduin 00 (Same as: Phenergan) Morphine No Notes: Memoria 6- (Same l 17:26: as:MORPhin [place] 00 e Sulfate) Labetalol No 10 mg, 2 Matias kate 6-27 mL, Route: l 17:26: IVP, Drug form: INJ, Q5Min, Dosing Weight 98.182, kg, PRN Elevated BP, Start date: 02/15/17 12:26:00 CDT, Duration: 5 doses or times, Stop date: 02/15/17 20:25:00 CDT Hydralazine No Notes: Matias kate 02-15 (Same as: l 17:26: Apresoline ) Push over 5 minutes Acetaminoph No Notes: Max Memoria en 02-15 acetaminop l 17:26: hen 4000 mg/day (4 gm/day). (Same as: Tylenol Extra Strength) Ondansetron No Notes: Matias kate 02-15 (Same as: l 17:26: Zofran) MEDICATION WASTE Product Size: 4 mg Product Wasted: ___ mg Meperidine No Notes: Memor ia 02-15 (Same as: l 17:26: Demerol) "Use Precaution in Elderly, Seizure disorders, and Renal impairment " Hydromorpho No Notes: Matias kate ne - Same as l 17:26: Dilaudid Eduin 00 Naloxone No Notes: Memoria 6- Same as l 17:26: Narcan [place] 00 Flumazenil No Notes: Memor ia 02-15 (Same as: l 17:26: Romazicon) [place] 00 acetaminoph No Notes: Do M emoria en 325 mg 02-15 not exceed l oral tablet 16:33: 4 gm/day. H ermann 00 (Same as: Tylenol) Acetaminoph No Notes: Do M emoria en 325 MG / 6-27 not exceed l Oxycodone 16:33: 4gm/day of He rmann Hydrochlori 00 acetaminop de 5 MG hen. (Same Oral Tablet as: [Percocet Percocet-5 5] /325) Zofran No Notes: Memoria 6-27 (Same as: l 16:33: Zofran) [place] 00 MEDICATION WASTE Product Size: 4 mg Product Wasted: ___ mg Morphine No Notes: Memoria 6-27 (Same l 16:33: as:MORPhin [place] 00 e Sulfate) Famotidine No Notes: Memor ia 20 MG Oral - (Same as: l Tablet 16:33: Pepcid) [place] [Pepcid] 00 Milk of No Notes: Memoria Magnesia - (Same as: l 16:33: Milk of Eduin 00 Magnesia, MOM) Maalox No Notes: Memoria Advanced 6- (aluminum l Regular 16:33: hydroxide- Herm regino Strength 00 magnesium SUSP hyd- simethicon e 400-400-40 mg/5ml 30 ml ud BIRGIT) Acetaminoph No Notes: Do M emoria en 325 MG / 6-27 not exceed l Hydrocodone 16:33: 4gm/day of Eduin Bitartrate 00 acetaminop 10 MG Oral hen. (Same Tablet as: [place] [[place] 325/10) 10325] Temazepam No Notes: Memori a 6-27 (Same As: l 16:33: Restoril) [place] 00 Dulcolax No Notes: Memoria Laxative 6- (Same As: l 16:33: Dulcolax, [place] 00 Bisco-Lax) Lactated No 1,000 mL, Matias kate Ringers - Rate: 75 l 1,000 mL 16:33: ml/hr, [place] 00 Infuse over: 13.3 hr, Route: IV, Dosing Weight 98.182 kg, Total Volume: 1,000, Start date: 02/15/17 11:33:00 CDT, Duration: 30 day, Stop date: 03/17/17 11:32:00 CDT acetaminoph No Notes: Do M emoria en 325 mg 6-27 not exceed l oral tablet 16:33: 4 gm/day. H ermann 00 (Same as: Tylenol) Acetaminoph No Notes: Do M emoria en 325 MG / 6-27 not exceed l Oxycodone 16:33: 4gm/day of [place] Hydrochlori 00 acetaminop de 5 MG hen. (Same Oral Tablet as: [Percocet Percocet-5 5/325] /325) Zofran No Notes: Memoria 6-27 (Same as: l 16:33: Zofran) Eduin 00 MEDICATION WASTE Product Size: 4 mg Product Wasted: ___ mg Morphine No Notes: Memoria 6-27 (Same l 16:33: as:MORPhin [place] 00 e Sulfate) Famotidine No Notes: Memor ia 20 MG Oral - (Same as: l Tablet 16:33: Pepcid) [place] [Pepcid] 00 Milk of No Notes: Memoria Magnesia 6-27 (Same as: l 16:33: Milk of Eduin 00 Magnesia, MOM) Maalox No Notes: Memoria Advanced 6-27 (aluminum l Regular 16:33: hydroxide- Herm regino Strength 00 magnesium SUSP hyd- simethicon e 400-400-40 mg/5ml 30 ml ud BIRGIT) Acetaminoph No Notes: Do M emoria en 325 MG / 6-27 not exceed l Hydrocodone 16:33: 4gm/day of Eduin Bitartrate 00 acetaminop 10 MG Oral hen. (Same Tablet as: [place] [[place] 325/10) 10325] Temazepam No Notes: Memori a 6-27 (Same As: l 16:33: Restoril) Edu[place] 00 Dulcolax No Notes: Memoria Laxative 6-27 (Same As: l 16:33: Dulcolax, [place] 00 Bisco-Lax) Lactated No 1,000 mL, Matias kate Ringers 6-27 Rate: 75 l 1,000 mL 16:33: ml/hr, [place] 00 Infuse over: 13.3 hr, Route: IV, Dosing Weight 98.182 kg, Total Volume: 1,000, Start date: 02/15/17 11:33:00 CDT, Duration: 30 day, Stop date: 03/17/17 11:32:00 CDT acetaminoph No Notes: Do M emoria en 325 mg 6-27 not exceed l oral tablet 16:33: 4 gm/day. H ermann 00 (Same as: Tylenol) Acetaminoph No Notes: Do M emoria en 325 MG / 6-27 not exceed l Oxycodone 16:33: 4gm/day of [place] Hydrochlori 00 acetaminop de 5 MG hen. (Same Oral Tablet as: [Percocet Percocet-5 5/325] /325) Zofran No Notes: Memoria 6-27 (Same as: l 16:33: Zofran) Eduin 00 MEDICATION WASTE Product Size: 4 mg Product Wasted: ___ mg Morphine No Notes: Memoria 6-27 (Same l 16:33: as:MORPhin [place] 00 e Sulfate) Famotidine No Notes: Memor ia 20 MG Oral 6-27 (Same as: l Tablet 16:33: Pepcid) [place] [Pepcid] 00 Milk of No Notes: Memoria Magnesia 6-27 (Same as: l 16:33: Milk of Eduin 00 Magnesia, MOM) Maalox No Notes: Memoria Advanced 6-27 (aluminum l Regular 16:33: hydroxide- Herm regino Strength 00 magnesium SUSP hyd- simethicon e 400-400-40 mg/5ml 30 ml ud BIRGIT) Acetaminoph No Notes: Do M emoria en 325 MG / 6-27 not exceed l Hydrocodone 16:33: 4gm/day of Eduin Bitartrate 00 acetaminop 10 MG Oral hen. (Same Tablet as: [place] [[place] 325/10) 10/325] Temazepam No Notes: Memori a 6-27 (Same As: l 16:33: Restoril) [place] 00 Dulcolax No Notes: Memoria Laxative 6-27 (Same As: l 16:33: Dulcolax, [place] 00 Bisco-Lax) Lactated No 1,000 mL, Matias kate Ringers 6-27 Rate: 75 l 1,000 mL 16:33: ml/hr, [place] 00 Infuse over: 13.3 hr, Route: IV, Dosing Weight 98.182 kg, Total Volume: 1,000, Start date: 02/15/17 11:33:00 CDT, Duration: 30 day, Stop date: 03/17/17 11:32:00 CDT acetaminoph No Notes: Do M emoria en 325 mg 6-27 not exceed l oral tablet 16:33: 4 gm/day. H ermann 00 (Same as: Tylenol) Acetaminoph No Notes: Do M emoria en 325 MG / 6-27 not exceed l Oxycodone 16:33: 4gm/day of [place] fre[place] Hydrochlori 00 acetaminop de 5 MG hen. (Same Oral Tablet as: [Percocet Percocet-5 5/325] /325) Zofran No Notes: Memoria 6-27 (Same as: l 16:33: Zofran) Eduin 00 MEDICATION WASTE Product Size: 4 mg Product Wasted: ___ mg Morphine No Notes: Memoria 6-27 (Same l 16:33: as:MORPhin [place] 00 e Sulfate) Famotidine No Notes: Memor ia 20 MG Oral 6-27 (Same as: l Tablet 16:33: Pepcid) Eduin [Pepcid] 00 Milk of No Notes: Memoria Magnesia 6-27 (Same as: l 16:33: Milk of Eduin 00 Magnesia, MOM) Maalox No Notes: Memoria Advanced 6-27 (aluminum l Regular 16:33: hydroxide- Herm regino Strength 00 magnesium SUSP hyd- simethicon e 400-400-40 mg/5ml 30 ml ud BIRGIT) Acetaminoph No Notes: Do M emoria en 325 MG / 6-27 not exceed l Hydrocodone 16:33: 4gm/day of [place] Bitartrate 00 acetaminop 10 MG Oral hen. (Same Tablet as: [place] [[place] 325/10) 10/325] Temazepam No Notes: Memori a - (Same As: l 16:33: Restoril) Dulcolax No Notes: Memoria Laxative - (Same As: l 16:33: Dulcolax, [place]-Lax) Lactated 2016- No 1,000 mL, Matias kate Ringers - Rate: 75 l 1,000 mL 16:33: ml/hr, [place] 00 Infuse over: 13.3 hr, Route: IV, Dosing Weight 98.182 kg, Total Volume: 1,000, Start date: 02/15/17 11:33:00 CDT, Duration: 30 day, Stop date: 03/17/17 11:32:00 CDT Lactated 2016-0 No 1,000 mL, Matias kate Ringers - Rate: 40 l 1,000 mL 12:17: ml/hr, [place] 00 Infuse over: 25 hr, Route: IV, Dosing Weight 98.182 kg, Total Volume: 1,000, Start date: 02/15/17 7:17:00 CDT, Duration: 30 day, Stop date: 03/17/17 7:16:00 CDT Lactated 2016-0 No 1,000 mL, Matias kate Ringers -27 Rate: 40 l 1,000 mL 12:17: ml/hr, [place] 00 Infuse over: 25 hr, Route: IV, Dosing Weight 98.182 kg, Total Volume: 1,000, Start date: 02/15/17 7:17:00 CDT, Duration: 30 day, Stop date: 03/17/17 7:16:00 CDT Lactated 2016-0 No 1,000 mL, Matias kate Ringers 6-27 Rate: 40 l 1,000 mL 12:17: ml/hr, [place] 00 Infuse over: 25 hr, Route: IV, Dosing Weight 98.182 kg, Total Volume: 1,000, Start date: 02/15/17 7:17:00 CDT, Duration: 30 day, Stop date: 03/17/17 7:16:00 CDT Lactated 2016- No 1,000 mL, Matias kate Ringers - Rate: 40 l 1,000 mL 12:17: ml/hr, [place] 00 Infuse over: 25 hr, Route: IV, Dosing Weight 98.182 kg, Total Volume: 1,000, Start date: 02/15/17 7:17:00 CDT, Duration: 30 day, Stop date: 03/17/17 7:16:00 CDT Ancef No Notes: Memoria 6-27 Same as: l 12:16: Ancef Clindamycin No 900 mg, 50 Memoria 6-27 mL, Route: l 12:16: IVPB, Drug form: INJ, ONCE, Dosing Weight 98.182, kg, Start date: 02/15/17 7:16:00 CDT, Stop date: 02/15/17 7:16:00 CDT, ABX Indication : Surgical Prophylaxi s Dexamethaso No Notes: Matias kate ne - Concentrat l 12:16: ion: [place] 00 4mg/ml Zofran No Notes: Memoria 6-27 (Same as: l 12:16: Zofran) MEDICATION WASTE Product Size: 4 mg Product Wasted: ___ mg Hydroxyzine No Notes: Matias kate 6-27 (Same as: l 12:16: Vistaril) Ancef No Notes: Memoria 6-27 Same as: l 12:16: Ancef Clindamycin No 900 mg, 50 Memoria 6-27 mL, Route: l 12:16: IVPB, Drug form: INJ, ONCE, Dosing Weight 98.182, kg, Start date: 02/15/17 7:16:00 CDT, Stop date: 02/15/17 7:16:00 CDT, ABX Indication : Surgical Prophylaxi s Dexamethaso No Notes: Matias kate ne 6-27 Concentrat l 12:16: ion: [facility] 00 4mg/ml Zofran No Notes: Memoria 6-27 (Same as: l 12:16: Zofran) [facility] 00 MEDICATION WASTE Product Size: 4 mg Product Wasted: ___ mg Hydroxyzine No Notes: Matias kate 6-27 (Same as: l 12:16: Vistaril) [place] [facility]ce[facility] No Notes: Memoria 6-27 Same as: l 12:16: Ancef [place] 00 Clindamycin No 900 mg, 50 Memoria 6-27 mL, Route: l 12:16: IVPB, Drug Eduin 00 form: INJ, ONCE, Dosing Weight 98.182, kg, Start date: 02/15/17 7:16:00 CDT, Stop date: 02/15/17 7:16:00 CDT, ABX Indication : Surgical Prophylaxi s Dexamethaso No Notes: Matias kate ne 02-15 Concentrat l 12:16: ion: Eduin 00 4mg/ml Zofran No Notes: Memoria 6 (Same as: l 12:16: Zofran) [place] 00 MEDICATION WASTE Product Size: 4 mg Product Wasted: ___ mg Hydroxyzine No Notes: Matias kate 6- (Same as: l 12:16: Vistaril) [facility] An[facility] No Notes: Memoria 6- Same as: l 12:16: Anc Clindamycin No 900 mg, 50 Memoria 6-27 mL, Route: l 12:16: IVPB, Drug Eduin form: INJ, ONCE, Dosing Weight 98.182, kg, Start date: 02/15/17 7:16:00 CDT, Stop date: 02/15/17 7:16:00 CDT, ABX Indication : Surgical Prophylaxi s Dexamethaso No Notes: Matias kate ne 6-27 Concentrat l 12:16: ion: [place] 00 4mg/ml Zofran No Notes: Memoria 6-27 (Same as: l 12:16: Zofran) Eduin 00 MEDICATION WASTE Product Size: 4 mg Product Wasted: ___ mg Hydroxyzine No Notes: Matias kate 6-27 (Same as: l 12:16: Vistaril) [facility] 00 [facility] No Notes: Memoria 6-27 Infuse l 12:15: over 15 [place] 00 minutes Do not exceed 4gm/day of acetaminop hen MEDICATION WASTE Product Size: 1000 mg Product Wasted: ___ mg 72 HR No Notes: Memoria Scopolamine 6-27 Change l 0.0139 12:15: patch Eduin MG/HR 00 every 72 Transdermal hours Patch (Same as: Transderm- Scop) Oxycontin No Notes: Do Mem oria 6-27 not crush l 12:15: or chew. [place] 00 (Same as: OxyContin) Celebrex No Notes: Memoria 6-27 NSAID. l 12:15: Please Eduin 00 check indication . Not for seizure. (Same As: CeleBREX) [facility] No Notes: Memoria 6-27 Infuse l 12:15: over 15 [facility] 00 minutes Do not exceed 4gm/day of acetaminop hen MEDICATION WASTE Product Size: 1000 mg Product Wasted: ___ mg 72 HR No Notes: Memoria Scopolamine 6-27 Change l 0.0139 12:15: patch Eduin MG/HR 00 every 72 Transdermal hours Patch (Same as: Transderm- Scop) Oxycontin No Notes: Do Mem oria 6-27 not crush l 12:15: or chew. [facility] 00 (Same as: OxyContin) Celebrex No Notes: Memoria 6-27 NSAID. l 12:15: Please [place] 00 check indication . Not for seizure. (Same As: CeleBREX) [facility] No Notes: Memoria 6-27 Infuse l 12:15: over 15 [facility] 00 minutes Do not exceed 4gm/day of acetaminop hen MEDICATION WASTE Product Size: 1000 mg Product Wasted: ___ mg 72 HR No Notes: Memoria Scopolamine 6-27 Change l 0.0139 12:15: patch [place] MG/HR 00 every 72 Transdermal hours Patch (Same as: Transderm- Scop) Oxycontin No Notes: Do Mem oria - not crush l 12:15: or chew. [place] 00 (Same as: OxyContin) Celebrex No Notes: Memoria 6- NSAID. l 12:15: Please [place] 00 check indication . Not for seizure. (Same As: CeleBREX) [facility] No Notes: Memoria 02-15 Infuse l 12:15: over 15 [facility] 00 minutes Do not exceed 4gm/day of acetaminop hen MEDICATION WASTE Product Size: 1000 mg Product Wasted: ___ mg 72 HR No Notes: Memoria Scopolamine 02-15 Change l 0.0139 12:15: patch [place] MG/HR 00 every 72 Transdermal hours Patch (Same as: Transderm- Scop) Oxycontin No Notes: Do Mem oria 02-15 not crush l 12:15: or chew. [place] 00 (Same as: OxyContin) Celebrex No Notes: Memoria - NSAID. l 12:15: Please [place] 00 check indication . Not for seizure. (Same As: CeleBREX) polymyxin B No Notes: Matias kate sulfate + -27 (Same as: l sodium 11:00: Polymyxin Gustavo n chloride 00 B Sulfate) 0.9% 250 mL INJ (for IV set) 250 mL vancomycin No Notes: Memor ia + sodium 02-15 TIME l chloride 11:00: CRITICAL Kaia nn 0.9% 250 mL 00 MEDICATION INJ (for IV (Same As: set) 250 mL Vancocin) ropivacaine No Notes: Memoria 6-27 NOT FOR IV l 11:00: use [facility] 00 Ropivacain e 5 mg/mL (49.25 mL) Epinephrin e 1 mg/mL (0.5 mL) Clonidine 0.1 mg/mL (0.8 mL) Ketorolac 30 mg/mL (1 mL) Normal Saline 48.45 mL polymyxin B No Notes: Matias kate sulfate + 6-27 (Same as: l sodium 11:00: Polymyxin Gustavo n chloride 00 B Sulfate) 0.9% 250 mL INJ (for IV set) 250 mL vancomycin No Notes: Memor ia + sodium 6-27 TIME l chloride 11:00: CRITICAL Ka[place] nn 0.9% 250 mL 00 MEDICATION INJ (for IV (Same As: set) 250 mL Vancocin) ropivacaine No Notes: Memoria 6-27 NOT FOR IV l 11:00: use [place] 00 Ropivacain e 5 mg/mL (49.25 mL) Epinephrin e 1 mg/mL (0.5 mL) Clonidine 0.1 mg/mL (0.8 mL) Ketorolac 30 mg/mL (1 mL) Normal Saline 48.45 mL polymyxin B No Notes: Matias kate sulfate + 6-27 (Same as: l sodium 11:00: Polymyxin Gustavo n chloride 00 B Sulfate) 0.9% 250 mL INJ (for IV set) 250 mL vancomycin No Notes: Memor ia + sodium 6-27 TIME l chloride 11:00: CRITICAL Kaia nn 0.9% 250 mL 00 MEDICATION INJ (for IV (Same As: set) 250 mL Vancocin) ropivacaine No Notes: Memoria 6-27 NOT FOR IV l 11:00: use [facility] 00 Ropivacain e 5 mg/mL (49.25 mL) Epinephrin e 1 mg/mL (0.5 mL) Clonidine 0.1 mg/mL (0.8 mL) Ketorolac 30 mg/mL (1 mL) Normal Saline 48.45 mL polymyxin B No Notes: Matias kate sulfate + 6-27 (Same as: l sodium 11:00: Polymyxin [place] n chloride 00 B Sulfate) 0.9% 250 mL INJ (for IV set) 250 mL vancomycin No Notes: Memor ia + sodium 6-27 TIME l chloride 11:00: CRITICAL Kaia nn 0.9% 250 mL 00 MEDICATION INJ (for IV (Same As: set) 250 mL Vancocin) ropivacaine No Notes: Memoria 6-27 NOT FOR IV l 11:00: use [place] 00 Ropivacain e 5 mg/mL (49.25 mL) Epinephrin e 1 mg/mL (0.5 mL) Clonidine 0.1 mg/mL (0.8 mL) Ketorolac 30 mg/mL (1 mL) Normal Saline 48.45 mL amLODIPine 2016- No 5 mg = 1 Mem oria 5 mg oral 6-19 tab, PO, l tablet 23:17: Daily, [facility] 00 take DOS, # 90 tab, 0 Refill(s) levothyroxi Yes 25 Memori a ne 25 mcg 6-19 microgram l (0.025 mg) 23:17: = 1 tab, Her [place] oral tablet 00 PO, Daily, take DOS, # 30 tab, 0 Refill(s) amLODIPine No 5 mg = 1 Mem o[facility] 5 mg oral 6-19 tab, PO, l tablet 23:17: Daily, [place] 00 take DOS, # 90 tab, 0 Refill(s) levothyroxi Yes 25 Memori a ne 25 mcg 6-19 microgram l (0.025 mg) 23:17: = 1 tab, Her [place] oral tablet 00 PO, Daily, take DOS, # 30 tab, 0 Refill(s) amLODIPine No 5 mg = 1 Mem [facility] 5 mg oral 6-19 tab, PO, l tablet 23:17: Daily, [facility] 00 take DOS, # 90 tab, 0 Refill(s) levothyroxi Yes 25 Memori a ne 25 mcg 6-19 microgram l (0.025 mg) 23:17: = 1 tab, [place] oral tablet 00 PO, Daily, take DOS, # 30 tab, 0 Refill(s) amLODIPine 2016- No 5 mg = 1 Mem [facility] 5 mg oral 6-19 tab, PO, l tablet 23:17: Daily, [place] 00 take DOS, # 90 tab, 0 Refill(s) levothyroxi Yes 25 Memori a ne 25 mcg 6-19 microgram l (0.025 mg) 23:17: = 1 tab, Her [place] oral tablet 00 PO, Daily, take DOS, # 30 tab, 0 Refill(s) Hydrochloro 2016- No 25 mg = 1 M emoria thiazide 25 6-19 tab, PO, l MG Oral 23:16: Daily, # Gust[place] n Tablet 00 30 tab, 0 Refill(s) meloxicam 2016- Yes 15 mg = 1 Mem oria 15 mg oral 6-19 tab, PO, l tablet 23:16: Daily, # Edu[place] 00 30 tab, 0 Refill(s) thyroid 2017-0 Yes 60 mg = 1 Memor ia (PRISON) 60 MG 6-19 tab, PO, l Oral Tablet 23:16: Daily, Herm regino [ take DOS, Thyroid] # 30 tab, 1 Refill(s) Hydrochloro 2017-0 No 25 mg = 1 M emoria thiazide 25 6-19 tab, PO, l MG Oral 23:16: Daily, # [place] Tablet 00 30 tab, 0 Refill(s) meloxicam 2017-0 Yes 15 mg = 1 Mem oria 15 mg oral 6-19 tab, PO, l tablet 23:16: Daily, # [place] 00 30 tab, 0 Refill(s) thyroid 2017-0 Yes 60 mg = 1 Memor ia (PRISON) 60 MG 6-19 tab, PO, l Oral Tablet 23:16: Daily, Herm regino [ take DOS, Thyroid] # 30 tab, 1 Refill(s) Hydrochloro 2017-0 No 25 mg = 1 M emoria thiazide 25 6-19 tab, PO, l MG Oral 23:16: Daily, # [place] Tablet 00 30 tab, 0 Refill(s) meloxicam 2017-0 Yes 15 mg = 1 Mem o[facility] 15 mg oral 6-19 tab, PO, l tablet 23:16: Daily, # [facility] 00 30 tab, 0 Refill(s) thyroid 2017-0 Yes 60 mg = 1 Memor ia (PRISON) 60 MG 6-19 tab, PO, l Oral Tablet 23:16: Daily, Herm regino [ take DOS, Thyroid] # 30 tab, 1 Refill(s) Hydrochloro 2017-0 No 25 mg = 1 M emoria thiazide 25 6-19 tab, PO, l MG Oral 23:16: Daily, # [place] Tablet 00 30 tab, 0 Refill(s) meloxicam 2017-0 Yes 15 mg = 1 Mem oria 15 mg oral 6-19 tab, PO, l tablet 23:16: Daily, # [facility] 00 30 tab, 0 Refill(s) thyroid 2017-0 Yes 60 mg = 1 Memor ia (PRISON) 60 MG 6-19 tab, PO, l Oral Tablet 23:16: Daily, Herm regino [[place] 00 take DOS, Thyroid] # 30 tab, 1 Refill(s) amlodipine amlodipine No amlodipine [facility] 10 mg 10 mg 10 mg [facility]i tablet TAKE tablet TAKE tablet ty 0.5 TABLET 0.5 TABLET TAKE 0.5 Hospita BY MOUTH BY MOUTH TABLET BY l EVERY DAY EVERY DAY MOUTH Clin ics EVERY DAY [facility] No Hedrick [facility] Thyroid 60 Thyroid 60 Thyroid 60 Communi mg tablet mg tablet mg tablet ty TAKE 1 TAKE 1 TAKE 1 Hospita TABLET BY TABLET BY TABLET BY l MOUTH EVERY MOUTH EVERY MOUTH Clinics DAY DAY EVERY DAY carvedilol carvedilol No carvedilol [facility] 25 mg 25 mg 25 mg Communi tablet TAKE tablet TAKE tablet ty 1 TABLET BY 1 TABLET BY TAKE 1 Hospita MOUTH TWICE MOUTH TWICE TABLET BY l A DAY A DAY MOUTH Clinics TWICE A DAY ergocalcife ergocalcife No ergocalcif [facility] rol rol joyce [facility]i (vitamin (vitamin (vitamin ty D2) 1,250 D2) 1,250 D2) 1,250 Hospita mcg (50,000 mcg (50,000 mcg l unit) unit) (50,000 Clinics capsule capsule unit) TAKE 1 TAKE 1 capsule CAPSULE BY CAPSULE BY TAKE 1 MOUTH 2 MOUTH 2 CAPSULE BY TIMES A TIMES A MOUTH 2 MONTH MONTH TIMES A (EVERY (EVERY MONTH OTHER WEEK) OTHER WEEK) (EVERY OTHER WEEK) Fluzone Fluzone No Fluzone [facility] High-Dose High-Dose High-Dose [facility] Quad Quad Quad ty Hospit a (PF) 240 (PF) 240 (PF) 240 l mcg/0.7 mL mcg/0.7 mL mcg/0.7 mL Clinics IM syringe IM syringe IM syringe prednisone prednisone No prednisone [facility] 50 mg 50 mg 50 mg Communi tablet TAKE tablet TAKE tablet ty 1 TABLET BY 1 TABLET BY TAKE 1 Hospita MOUTH EVERY MOUTH EVERY TABLET BY l DAY DAY MOUTH Clinics EVERY DAY Synthroid Synthroid No Synthroid [facility] 50 mcg 50 mcg 50 mcg [facility] tablet TAKE tablet TAKE tablet ty 1/2 TABLET 1/2 TABLET TAKE 1/2 Hospita BY MOUTH BY MOUTH TABLET BY l DAILY DAILY MOUTH Clinics DAILY amlodipine amlodipine No amlodipine [facility] 10 mg 10 mg 10 mg [facility] tablet TAKE tablet TAKE tablet ty 0.5 TABLET 0.5 TABLET TAKE 0.5 Hospita BY MOUTH BY MOUTH TABLET BY l EVERY DAY EVERY DAY MOUTH Clin ics [facility] Thyroid 60 Thyroid 60 Thyroid 60 Communi mg tablet mg tablet mg tablet ty TAKE 1 TAKE 1 TAKE 1 Hospita TABLET BY TABLET BY TABLET BY l MOUTH EVERY MOUTH EVERY MOUTH Clinics DAY DAY EVERY DAY carvedilol carvedilol No carvedilol [facility] 25 mg 25 mg 25 mg [facility]i tablet TAKE tablet TAKE tablet ty 1 TABLET BY 1 TABLET BY TAKE 1 Hospita MOUTH TWICE MOUTH TWICE TABLET BY l A DAY A DAY MOUTH Clinics TWICE A DAY ergocalcife ergocalcife No ergocalcif [facility] rol joyce [facility]i (vitamin (vitamin (vitamin ty D2) 1,250 D2) 1,250 D2) 1,250 Hospita mcg (50,000 mcg (50,000 mcg l unit) unit) (50,000 Clinics capsule capsule unit) TAKE 1 TAKE 1 capsule CAPSULE BY CAPSULE BY TAKE 1 MOUTH 2 MOUTH 2 CAPSULE BY TIMES A TIMES A MOUTH 2 MONTH MONTH TIMES A (EVERY (EVERY MONTH OTHER WEEK) OTHER WEEK) (EVERY OTHER WEEK) Fluzone Fluzone No Fluzone [facility] High-Dose High-Dose High-Dose [facility] Quad Quad Quad ty Hospit a (PF) 240 (PF) 240 (PF) 240 l mcg/0.7 mL mcg/0.7 mL mcg/0.7 mL Clinics IM syringe IM syringe IM syringe prednisone prednisone No prednisone [facility] 50 mg 50 mg 50 mg Communi tablet TAKE tablet TAKE tablet ty 1 TABLET BY 1 TABLET BY TAKE 1 Hospita MOUTH EVERY MOUTH EVERY TABLET BY l DAY DAY MOUTH Clinics EVERY DAY Synthroid Synthroid No Synthroid [facility] 50 mcg 50 mcg 50 mcg Communi tablet TAKE tablet TAKE tablet ty 1/2 TABLET 1/2 TABLET TAKE 1/2 Hospita BY MOUTH BY MOUTH TABLET BY l DAILY DAILY MOUTH Clinics DAILY amlodipine amlodipine No amlodipine [facility] 10 mg 10 mg 10 mg Communi tablet TAKE tablet TAKE tablet ty 1 TABLET BY 1 TABLET BY TAKE 1 Hospita MOUTH EVERY MOUTH EVERY TABLET BY l DAY DAY MOUTH Clinics EVERY DAY [facility] No [facility] Thyroid 60 Thyroid 60 Thyroid 60 Communi mg tablet mg tablet mg tablet ty TAKE 1 TAKE 1 TAKE 1 Hospita TABLET BY TABLET BY TABLET BY l MOUTH EVERY MOUTH EVERY MOUTH Clinics DAY DAY EVERY DAY carvedilol carvedilol No carvedilol [facility] 25 mg 25 mg 25 mg [facility]i tablet TAKE tablet TAKE tablet ty 1 TABLET BY 1 TABLET BY TAKE 1 Hospita MOUTH TWICE MOUTH TWICE TABLET BY l A DAY A DAY MOUTH Clinics TWICE A DAY clotrimazol clotrimazol No clotrimazo [facility] e-betametha e-betametha le-betamet Communi sone 1 sone 1 hasone 1 ty %-0.05 % %-0.05 % %-0.05 % [facility] topical topical topical l cream APPLY cream APPLY cream Clinics TO THE TO THE APPLY TO AFFECTED AFFECTED THE AND AND AFFECTED SURROUNDING SURROUNDING AND AREAS OF AREAS OF SURROUNDIN SKIN BY SKIN BY G AREAS OF TOPICAL TOPICAL SKIN BY ROUTE 2 ROUTE 2 TOPICAL TIMES PER TIMES PER ROUTE 2 DAY IN THE DAY IN THE TIMES PER MORNING AND MORNING AND DAY IN THE EVENING EVENING MORNING UNTIL UNTIL AND RESOLVED RESOLVED EVENING UNTIL RESOLVED ergocalcife ergocalcife No ergocalcif [facility] rol rol joyce Lisettei (vitamin (vitamin (vitamin ty D2) 1,250 D2) 1,250 D2) 1,250 Hospita mcg (50,000 mcg (50,000 mcg l unit) unit) (50,000 Clinics capsule capsule unit) TAKE 1 TAKE 1 capsule CAPSULE BY CAPSULE BY TAKE 1 MOUTH 2 MOUTH 2 CAPSULE BY TIMES A TIMES A MOUTH 2 MONTH MONTH TIMES A (EVERY (EVERY MONTH OTHER WEEK) OTHER WEEK) (EVERY OTHER WEEK) Fluzone Fluzone No Fluzone [facility] High-Dose High-Dose High-Dose [facility] Quad Quad Quad ty Hospit a (PF) 240 (PF) 240 (PF) 240 l mcg/0.7 mL mcg/0.7 mL mcg/0.7 mL Clinics IM syringe IM syringe IM syringe Synthroid Synthroid No Synthroid [facility] 50 mcg 50 mcg 50 mcg [facility] tablet TAKE tablet TAKE tablet ty 1/2 TABLET 1/2 TABLET TAKE 1/2 Hospita DAILY, 5 DAILY, 5 TABLET l DAYS A DAYS A DAILY, 5 Clinics WEEK. SKIP WEEK. SKIP DAYS A Tuesday WEEK. SKIP AND TUESDAY AND Tuesday AND TUESDAY amlodipine amlodipine No amlodipine [facility] 10 mg 10 mg 10 mg [facility]i tablet TAKE tablet TAKE tablet ty 1 TABLET BY 1 TABLET BY TAKE 1 Hospita MOUTH EVERY MOUTH EVERY TABLET BY l DAY DAY MOUTH Clinics EVERY DAY [facility] No [facility] Thyroid 60 Thyroid 60 Thyroid 60 Communi mg tablet mg tablet mg tablet ty TAKE 1 TAKE 1 TAKE 1 Hospita TABLET BY TABLET BY TABLET BY l MOUTH EVERY MOUTH EVERY MOUTH Clinics DAY DAY EVERY DAY carvedilol carvedilol No carvedilol [facility] 25 mg 25 mg 25 mg [facility]i tablet TAKE tablet TAKE tablet ty 1 TABLET BY 1 TABLET BY TAKE 1 Hospita MOUTH TWICE MOUTH TWICE TABLET BY l A DAY A DAY MOUTH Clinics TWICE A DAY clotrimazol clotrimazol No clotrimazo [facility] e-betametha e-betametha le-betamet Communi sone 1 sone 1 hasone 1 ty %-0.05 % %-0.05 % %-0.05 % [facility] topical topical topical l cream cream cream Clinics PLEASE SEE PLEASE SEE PLEASE SEE ATTACHED ATTACHED ATTACHED FOR FOR FOR DETAILED DETAILED DETAILED DIRECTIONS DIRECTIONS DIRECTIONS ergocalcife ergocalcife No ergocalcif [facility] (vitamin (vitamin (vitamin ty D2) 1,250 D2) 1,250 D2) 1,250 Hospita mcg (50,000 mcg (50,000 mcg l unit) unit) (50,000 Clinics capsule capsule unit) TAKE 1 TAKE 1 capsule CAPSULE BY CAPSULE BY TAKE 1 MOUTH 2 MOUTH 2 CAPSULE BY TIMES A TIMES A MOUTH 2 MONTH MONTH TIMES A (EVERY (EVERY MONTH OTHER WEEK) OTHER WEEK) (EVERY OTHER WEEK) Fluzone Fluzone No Fluzone [facility] High-Dose High-Dose High-Dose [facility] Quad Quad Quad ty Hospit a (PF) 240 (PF) 240 (PF) 240 l mcg/0.7 mL mcg/0.7 mL mcg/0.7 mL Clinics IM syringe IM syringe IM syringe Synthroid Synthroid No Synthroid [facility] 50 mcg 50 mcg 50 mcg [facility] tablet TAKE tablet TAKE tablet ty 1/2 TABLET 1/2 TABLET TAKE 1/2 Hospita DAILY, 5 DAILY, 5 TABLET l DAYS A DAYS A DAILY, 5 Clinics WEEK. SKIP WEEK. SKIP DAYS A Tuesday WEEK. SKIP AND TUESDAY AND Tuesday AND TUESDAY amlodipine amlodipine No amlodipine [facility] 10 mg 10 mg 10 mg [facility]i tablet TAKE tablet TAKE tablet ty 1 TABLET BY 1 TABLET BY TAKE 1 Hospita MOUTH EVERY MOUTH EVERY TABLET BY l DAY DAY MOUTH Clinics EVERY DAY carvedilol carvedilol No carvedilol [facility] 25 mg 25 mg 25 mg Communi tablet TAKE tablet TAKE tablet ty 1 TABLET BY 1 TABLET BY TAKE 1 Hospita MOUTH TWICE MOUTH TWICE TABLET BY l A DAY A DAY MOUTH Clinics TWICE A DAY clotrimazol clotrimazol No clotrimazo [facility] e-betametha e-betametha le-betamet Communi sone 1 sone 1 hasone 1 ty %-0.05 % %-0.05 % %-0.05 % [facility] topical topical topical l cream cream cream Clinics PLEASE SEE PLEASE SEE PLEASE SEE ATTACHED ATTACHED ATTACHED FOR FOR FOR DETAILED DETAILED DETAILED DIRECTIONS DIRECTIONS DIRECTIONS levothyroxi levothyroxi No levothyrox [facility] ne 100 mcg ne 100 mcg ine 100 Communi tablet TAKE tablet TAKE mcg tablet ty 1 TABLET BY 1 TABLET BY TAKE 1 Hospita MOUTH EVERY MOUTH EVERY TABLET BY l DAY IN THE DAY IN THE MOUTH Cl inics MORNING MORNING EVERY DAY IN THE MORNING amlodipine amlodipine No amlodipine [facility] 10 mg 10 mg 10 mg [facility] tablet TAKE tablet TAKE tablet ty 1 TABLET BY 1 TABLET BY TAKE 1 Hospita MOUTH EVERY MOUTH EVERY TABLET BY l DAY DAY MOUTH Clinics EVERY DAY carvedilol carvedilol No carvedilol [facility] 25 mg 25 mg 25 mg [facility]i tablet TAKE tablet TAKE tablet ty 1 TABLET BY 1 TABLET BY TAKE 1 Hospita MOUTH TWICE MOUTH TWICE TABLET BY l A DAY A DAY MOUTH Clinics TWICE A DAY clotrimazol clotrimazol No clotrimazo [facility] e-betametha e-betametha le-betamet Communi sone 1 sone 1 hasone 1 ty %-0.05 % %-0.05 % %-0.05 % [facility] topical topical topical l cream cream cream Clinics PLEASE SEE PLEASE SEE PLEASE SEE ATTACHED ATTACHED ATTACHED FOR FOR FOR DETAILED DETAILED DETAILED DIRECTIONS DIRECTIONS DIRECTIONS levothyroxi levothyroxi No levothyrox [facility] ne 100 mcg ne 100 mcg ine 100 Communi tablet TAKE tablet TAKE mcg tablet ty 1 TABLET BY 1 TABLET BY TAKE 1 Hospita MOUTH EVERY MOUTH EVERY TABLET BY l DAY IN THE DAY IN THE MOUTH Cl inics MORNING MORNING EVERY DAY IN THE MORNING amlodipine amlodipine No amlodipine [facility] 10 mg 10 mg 10 mg Communi tablet TAKE tablet TAKE tablet ty 1 TABLET BY 1 TABLET BY TAKE 1 Hospita MOUTH EVERY MOUTH EVERY TABLET BY l DAY DAY MOUTH Clinics EVERY DAY carvedilol carvedilol No carvedilol [facility] 25 mg 25 mg 25 mg Communi tablet TAKE tablet TAKE tablet ty 1 TABLET BY 1 TABLET BY TAKE 1 Hospita MOUTH TWICE MOUTH TWICE TABLET BY l A DAY A DAY MOUTH Clinics TWICE A DAY clotrimazol clotrimazol No clotrimazo [facility] e-betametha e-betametha le-betamet Communi sone 1 sone 1 hasone 1 ty %-0.05 % %-0.05 % %-0.05 % [facility] topical topical topical l cream APPLY cream APPLY cream Clinics TO THE TO THE APPLY TO AFFECTED AFFECTED THE AND AND AFFECTED SURROUNDING SURROUNDING AND AREAS OF AREAS OF SURROUNDIN SKIN BY SKIN BY G AREAS OF TOPICAL TOPICAL SKIN BY ROUTE 2 ROUTE 2 TOPICAL TIMES PER TIMES PER ROUTE 2 DAY IN THE DAY IN THE TIMES PER MORNING AND MORNING AND DAY IN THE EVENING EVENING MORNING UNTIL UNTIL AND RESOLVED RESOLVED EVENING UNTIL RESOLVED levothyroxi levothyroxi No levothyrox [facility] ne 100 mcg ne 100 mcg ine 100 Communi tablet TAKE tablet TAKE mcg tablet ty 1 TABLET BY 1 TABLET BY TAKE 1 Hospita MOUTH EVERY MOUTH EVERY TABLET BY l DAY IN THE DAY IN THE MOUTH Cl inics MORNING MORNING EVERY DAY IN THE MORNING prednisone prednisone No prednisone [facility] 20 mg 20 mg 20 mg Communi tablet TAKE tablet TAKE tablet ty 3 TABLETS 3 TABLETS TAKE 3 [facility] BY MOUTH ON BY MOUTH ON TABLETS BY l DAY ONE, DAY ONE, MOUTH ON Cli nics THEN 2 THEN 2 DAY ONE, TABLETS BY TABLETS BY THEN 2 MOUTH DAYS MOUTH DAYS TABLETS BY 2 then 1 2 then 1 MOUTH DAYS TABLET TABLET 2 then 1 DAILY UNTIL DAILY UNTIL TABLET FINISHED FINISHED DAILY (Total 5 (Total 5 UNTIL days) days) FINISHED (Total 5 days) amlodipine amlodipine No amlodipine [facility] 10 mg 10 mg 10 mg Communi tablet TAKE tablet TAKE tablet ty 1 TABLET BY 1 TABLET BY TAKE 1 Hospita MOUTH EVERY MOUTH EVERY TABLET BY l DAY DAY MOUTH Clinics EVERY DAY carvedilol carvedilol No carvedilol [facility] 25 mg 25 mg 25 mg Communi tablet TAKE tablet TAKE tablet ty 1 TABLET BY 1 TABLET BY TAKE 1 Hospita MOUTH TWICE MOUTH TWICE TABLET BY l A DAY A DAY MOUTH Clinics TWICE A DAY clotrimazol clotrimazol No clotrimazo [facility] e-betametha e-betametha le-betamet Communi sone 1 sone 1 hasone 1 ty %-0.05 % %-0.05 % %-0.05 % [facility] topical topical topical l cream APPLY cream APPLY cream Clinics TO THE TO THE APPLY TO AFFECTED AFFECTED THE AND AND AFFECTED SURROUNDING SURROUNDING AND AREAS OF AREAS OF SURROUNDIN SKIN BY SKIN BY G AREAS OF TOPICAL TOPICAL SKIN BY ROUTE 2 ROUTE 2 TOPICAL TIMES PER TIMES PER ROUTE 2 DAY IN THE DAY IN THE TIMES PER MORNING AND MORNING AND DAY IN THE EVENING EVENING MORNING UNTIL UNTIL AND RESOLVED RESOLVED EVENING UNTIL RESOLVED levothyroxi levothyroxi No levothyrox [facility] ne 88 mcg ne 88 mcg ine 88 mcg Communi tablet TAKE tablet TAKE tablet ty 1 TABLET BY 1 TABLET BY TAKE 1 Hospita MOUTH EVERY MOUTH EVERY TABLET BY l DAY IN THE DAY IN THE MOUTH Cl inics MORNING MORNING EVERY DAY IN THE MORNING Vitamin D2 Vitamin D2 No 1capsul Q1D Vitamin D2 [facility] 1,250 mcg 1,250 mcg e(s) 1,250 mcg Communi (50,000 (50,000 (50,000 ty unit) unit) unit) Hospita capsule capsule capsule l Take 1 Take 1 Take 1 Clinics capsule capsule capsule every day every day every day by oral by oral by oral route for route for route for 90 days. 90 days. 90 days. Vitamin D3 Vitamin D3 No 1capsul Q1D Vitamin D3 [facility] 25 mcg 25 mcg e(s) 25 mcg Communi (1,000 (1,000 (1,000 ty unit) unit) unit) Hospita capsule capsule capsule l Take 1 Take 1 Take 1 Clinics capsule capsule capsule every day every day every day by oral by oral by oral route. route. route. amlodipine amlodipine No amlodipine [facility] 10 mg 10 mg 10 mg Communi tablet TAKE tablet TAKE tablet ty 1 TABLET BY 1 TABLET BY TAKE 1 Hospita MOUTH EVERY MOUTH EVERY TABLET BY l DAY DAY MOUTH Clinics EVERY DAY carvedilol carvedilol No carvedilol [facility] 25 mg 25 mg 25 mg Communi tablet TAKE tablet TAKE tablet ty 1 TABLET BY 1 TABLET BY TAKE 1 Hospita MOUTH TWICE MOUTH TWICE TABLET BY l A DAY A DAY MOUTH Clinics TWICE A DAY clotrimazol clotrimazol No clotrimazo [facility] e-betametha e-betametha le-betamet Communi sone 1 sone 1 hasone 1 ty %-0.05 % %-0.05 % %-0.05 % [facility] topical topical topical l cream APPLY cream APPLY cream Clinics TO THE TO THE APPLY TO AFFECTED AFFECTED THE AND AND AFFECTED SURROUNDING SURROUNDING AND AREAS OF AREAS OF SURROUNDIN SKIN BY SKIN BY G AREAS OF TOPICAL TOPICAL SKIN BY ROUTE 2 ROUTE 2 TOPICAL TIMES PER TIMES PER ROUTE 2 DAY IN THE DAY IN THE TIMES PER MORNING AND MORNING AND DAY IN THE EVENING EVENING MORNING UNTIL UNTIL AND RESOLVED RESOLVED EVENING UNTIL RESOLVED levothyroxi levothyroxi No levothyrox [facility] ne 88 mcg ne 88 mcg ine 88 mcg Communi tablet TAKE tablet TAKE tablet ty 1 TABLET BY 1 TABLET BY TAKE 1 Hospita MOUTH EVERY MOUTH EVERY TABLET BY l DAY IN THE DAY IN THE MOUTH Cl inics MORNING MORNING EVERY DAY IN THE MORNING Vitamin D2 Vitamin D2 No 1capsul Q1D Vitamin D2 [facility] 1,250 mcg 1,250 mcg e(s) 1,250 mcg Communi (50,000 (50,000 (50,000 ty unit) unit) unit) Hospita capsule capsule capsule l Take 1 Take 1 Take 1 Clinics capsule capsule capsule every day every day every day by oral by oral by oral route for route for route for 90 days. 90 days. 90 days. Vitamin D3 Vitamin D3 No 1capsul Q1D Vitamin D3 [facility] 25 mcg 25 mcg e(s) 25 mcg Communi (1,000 (1,000 (1,000 ty unit) unit) unit) Hospita capsule capsule capsule l Take 1 Take 1 Take 1 Clinics capsule capsule capsule every day every day every day by oral by oral by oral route. route. route. amlodipine amlodipine No amlodipine [facility] 10 mg 10 mg 10 mg Communi tablet TAKE tablet TAKE tablet ty 1 TABLET BY 1 TABLET BY TAKE 1 Hospita MOUTH EVERY MOUTH EVERY TABLET BY l DAY DAY MOUTH Clinics EVERY DAY carvedilol carvedilol No carvedilol [facility] 25 mg 25 mg 25 mg Communi tablet TAKE tablet TAKE tablet ty 1 TABLET BY 1 TABLET BY TAKE 1 Hospita MOUTH TWICE MOUTH TWICE TABLET BY l A DAY A DAY MOUTH Clinics TWICE A DAY clotrimazol clotrimazol No clotrimazo [facility] e-betametha e-betametha le-betamet Communi sone 1 sone 1 hasone 1 ty %-0.05 % %-0.05 % %-0.05 % [facility] topical topical topical l cream APPLY cream APPLY cream Clinics TO THE TO THE APPLY TO AFFECTED AFFECTED THE AND AND AFFECTED SURROUNDING SURROUNDING AND AREAS OF AREAS OF SURROUNDIN SKIN BY SKIN BY G AREAS OF TOPICAL TOPICAL SKIN BY ROUTE 2 ROUTE 2 TOPICAL TIMES PER TIMES PER ROUTE 2 DAY IN THE DAY IN THE TIMES PER MORNING AND MORNING AND DAY IN THE EVENING EVENING MORNING UNTIL UNTIL AND RESOLVED RESOLVED EVENING UNTIL RESOLVED ergocalcife ergocalcife No ergocalcif [facility] rol rol joyce Communi (vitamin (vitamin (vitamin ty D2) 1,250 D2) 1,250 D2) 1,250 Hospita mcg (50,000 mcg (50,000 mcg l unit) unit) (50,000 Clinics capsule capsule unit) TAKE 1 TAKE 1 capsule CAPSULE BY CAPSULE BY TAKE 1 MOUTH EVERY MOUTH EVERY CAPSULE BY DAY DAY MOUTH EVERY DAY levothyroxi levothyroxi No levothyrox [facility] ne 88 mcg ne 88 mcg ine 88 mcg Communi tablet TAKE tablet TAKE tablet ty 1 TABLET BY 1 TABLET BY TAKE 1 Hospita MOUTH EVERY MOUTH EVERY TABLET BY l DAY IN THE DAY IN THE MOUTH Cl inics MORNING MORNING EVERY DAY IN THE MORNING Vitamin D3 Vitamin D3 No 1capsul Q1D Vitamin D3 [facility] 25 mcg 25 mcg e(s) 25 mcg Communi (1,000 (1,000 (1,000 ty unit) unit) unit) Hospita capsule capsule capsule l Take 1 Take 1 Take 1 Clinics capsule capsule capsule every day every day every day by oral by oral by oral route. route. route. amlodipine amlodipine No amlodipine [facility] 5 mg tablet 5 mg tablet 5 mg C ommuni TAKE 1 TAKE 1 tablet ty TABLET BY TABLET BY TAKE 1 [facility] MOUTH EVERY MOUTH EVERY TABLET BY l DAY DAY MOUTH Clinics EVERY DAY Hedrick Hedrick No Hedrick [facility] Thyroid 60 Thyroid 60 Thyroid 60 Communi mg tablet 1 mg tablet 1 mg tablet ty PO QD [facility]D [facility] No carvedilol [facility] 25 mg 25 mg 25 mg Communi tablet TAKE tablet TAKE tablet ty 1 TABLET BY 1 TABLET BY TAKE 1 Hospita MOUTH TWICE MOUTH TWICE TABLET BY l A DAY A DAY MOUTH Clinics TWICE A DAY Fluzone Fluzone No Fluzone [facility] High-Dose High-Dose High-Dose Communi Quad Quad Quad ty Hospit a (PF) 240 (PF) 240 (PF) 240 l mcg/0.7 mL mcg/0.7 mL mcg/0.7 mL Clinics IM syringe IM syringe IM syringe furosemide furosemide No furosemide [facility] 20 mg 20 mg 20 mg Communi tablet tablet tablet ty [facility] levothyroxi levothyroxi No levothyrox [facility] ne 50 mcg ne 50 mcg ine 50 mcg Communi tablet 0.5 tablet 0.5 tablet 0.5 ty PO Qd PO Qd PO Qd [facility] amlodipine amlodipine No amlodipine [facility] 10 mg 10 mg 10 mg Communi tablet TAKE tablet TAKE tablet ty 1 TABLET BY 1 TABLET BY TAKE 1 Hospita MOUTH EVERY MOUTH EVERY TABLET BY l DAY DAY MOUTH Clinics EVERY DAY amlodipine amlodipine No amlodipine [facility] 5 mg tablet 5 mg tablet 5 mg C ommuni TAKE 1 TAKE 1 tablet ty TABLET BY TABLET BY TAKE 1 [facility] MOUTH EVERY MOUTH EVERY TABLET BY l DAY DAY MOUTH Clinics EVERY DAY Hedrick Hedrick No Hedrick [facility] Thyroid 60 Thyroid 60 Thyroid 60 Communi mg tablet 1 mg tablet 1 mg tablet ty PO QD PO QD 1 PO QD [facility] carvedilol carvedilol No carvedilol [facility] 25 mg 25 mg 25 mg Communi tablet TAKE tablet TAKE tablet ty 1 TABLET BY 1 TABLET BY TAKE 1 Hospita MOUTH TWICE MOUTH TWICE TABLET BY l A DAY A DAY MOUTH Clinics TWICE A DAY ergocalcife ergocalcife No ergocalcif [facility] nikki jordan joyce Jimena (vitamin (vitamin (vitamin ty D2) 1,250 D2) 1,250 D2) 1,250 Hospita mcg (50,000 mcg (50,000 mcg l unit) unit) (50,000 Clinics capsule capsule unit) capsule Fluzone Fluzone No Fluzone [facility] High-Dose High-Dose High-Dose Communi Quad Quad Quad ty Hospit a (PF) 240 (PF) 240 (PF) 240 l mcg/0.7 mL mcg/0.7 mL mcg/0.7 mL Clinics IM syringe IM syringe IM syringe levothyroxi levothyroxi No levothyrox [facility] ne 50 mcg ne 50 mcg ine 50 mcg Communi tablet 0.5 tablet 0.5 tablet 0.5 ty PO Qd PO Qd PO Qd [facility] spironolact spironolact No spironolac [facility] one 25 mg one 25 mg tone 25 mg Communi tablet 1 PO tablet 1 PO tablet 1 ty qd qd PO qd [facility] amlodipine amlodipine No amlodipine [facility] 10 mg 10 mg 10 mg Communi tablet TAKE tablet TAKE tablet ty 0.5 TABLET 0.5 TABLET TAKE 0.5 Hospita BY MOUTH BY MOUTH TABLET BY l EVERY DAY EVERY DAY MOUTH Clin ics EVERY DAY Hedrick Hedrick No Hedrick [facility] Thyroid 60 Thyroid 60 Thyroid 60 Communi mg tablet mg tablet mg tablet ty TAKE 1 TAKE 1 TAKE 1 Hospita TABLET BY TABLET BY TABLET BY l MOUTH EVERY MOUTH EVERY MOUTH Clinics DAY DAY EVERY DAY carvedilol carvedilol No carvedilol [facility] 25 mg 25 mg 25 mg Communi tablet TAKE tablet TAKE tablet ty 1 TABLET BY 1 TABLET BY TAKE 1 Hospita MOUTH TWICE MOUTH TWICE TABLET BY l A DAY A DAY MOUTH Clinics TWICE A DAY ergocalcife ergocalcife No ergocalcif [facility] nikki jordan joyce Lisettei (vitamin (vitamin (vitamin ty D2) 1,250 D2) 1,250 D2) 1,250 Hospita mcg (50,000 mcg (50,000 mcg l unit) unit) (50,000 Clinics capsule capsule unit) TAKE 1 TAKE 1 capsule CAPSULE BY CAPSULE BY TAKE 1 MOUTH 2 MOUTH 2 CAPSULE BY TIMES A TIMES A MOUTH 2 MONTH MONTH TIMES A (EVERY (EVERY MONTH OTHER WEEK) OTHER WEEK) (EVERY OTHER WEEK) Fluzone Fluzone No Fluzone [facility] High-Dose High-Dose High-Dose [facility] Quad Quad Quad ty Hospit a (PF) 240 (PF) 240 (PF) 240 l mcg/0.7 mL mcg/0.7 mL mcg/0.7 mL Clinics IM syringe IM syringe IM syringe prednisone prednisone No 1 Q1D prednisone [facility] 50 mg 50 mg 50 mg Communi tablet Take tablet Take tablet ty 1 tablet 1 tablet Take 1 Hospi ta every day every day tablet l by oral by oral every day Clin ics route. route. by oral route. Synthroid Synthroid No Synthroid [facility] 50 mcg 50 mcg 50 mcg Communi tablet TAKE tablet TAKE tablet ty 1/2 TABLET 1/2 TABLET TAKE 1/2 Hospita BY MOUTH BY MOUTH TABLET BY l DAILY DAILY MOUTH Clinics DAILY Immunizations Ordered Immunization Filled Immunization Date Status Commen Source Name Name COVID-19, mRNA, COVID-19, mRNA, 2022-09-19 Completed [facility] LNP-S, bivalent LNP-S, bivalent 00:00:00 [facility] booster, PF, 30 booster, PF, 30 mcg/0.3 mL dose mcg/0.3 mL dose (Pfizer-BioNTech) ([employer]) COVID-19, mRNA, COVID-19, mRNA, 2022-09-19 Completed [facility] LNP-S, bivalent LNP-S, bivalent 00:00:00 [facility] booster, PF, 30 booster, PF, 30 mcg/0.3 mL dose mcg/0.3 mL dose (Pfizer-BioNTech) ([employer]) COVID-19, mRNA, COVID-19, mRNA, 2022-09-19 Completed [facility] LNP-S, bivalent LNP-S, bivalent 00:00:00 [facility] booster, PF, 30 booster, PF, 30 mcg/0.3 mL dose mcg/0.3 mL dose (Pfizer-BioNTech) ([employer]) influenza, influenza, 2022-06-07 Completed [facility] high-dose, high-dose, 00:00:00 [facility] quadrivalent quadrivalent influenza, influenza, 2022-06-07 Completed [facility] high-dose, high-dose, 00:00:00 [facility] quadrivalent quadrivalent influenza, influenza, 2022-06-07 Completed [facility] ty high-dose, high-dose, 00:00:00 [facility] quadrivalent quadrivalent influenza, influenza, 2022-06-07 Completed [facility] ty high-dose, high-dose, 00:00:00 [facility] quadrivalent quadrivalent influenza, influenza, 2022-06-07 [facility] quadrivalent quadrivalent influenza, influenza, 2022-06-07 [facility], [facility] quadrivalent quadrivalent Pneumococcal Pneumococcal 2022-02-15 Completed [facility] conjugate PCV20, conjugate PCV20, 00:00:00 [facility] polysaccharide polysaccharide [id number] conjugate, [id number] conjugate, adjuvant, PF adjuvant, PF zoster recombinant - zoster recombinant - 2022-02-15 Completed [facility] ea(s) ea(s) 00:00:00 [facility] Pneumococcal Pneumococcal 2022-02-15 Completed [facility] conjugate PCV20, conjugate PCV20, 00:00:00 [facility] polysaccharide polysaccharide [id number] conjugate, [id number] conjugate, adjuvant, PF adjuvant, PF zoster recombinant - zoster recombinant - 2022-02-15 Completed [facility] ea(s) ea(s) 00:00:00 [facility] Pneumococcal Pneumococcal 2022-02-15 Completed [facility] conjugate PCV20, conjugate PCV20, 00:00:00 [facility] polysaccharide polysaccharide [id number] conjugate, [id number] conjugate, adjuvant, PF adjuvant, PF zoster recombinant - zoster recombinant - 2022-02-15 Completed [facility] ea(s) ea(s) 00:00:00 [facility] Pneumococcal Pneumococcal 2022-02-15 Completed [facility] conjugate PCV20, conjugate PCV20, 00:00:00 [facility] polysaccharide polysaccharide [id number] conjugate, [id number] conjugate, adjuvant, PF adjuvant, PF zoster recombinant - zoster recombinant - 2022-02-15 Completed [facility] ea(s) ea(s) 00:00:00 [facility] Pneumococcal Pneumococcal 2022-02-15 Completed [facility] conjugate PCV20, conjugate PCV20, 00:00:00 [facility] polysaccharide polysaccharide [id number] conjugate, [id number] conjugate, adjuvant, PF adjuvant, PF zoster recombinant - zoster recombinant - 2022-02-15 Completed [facility] ea(s) ea(s) 00:00:00 [facility] Pneumococcal Pneumococcal 2022-02-15 Completed [facility] conjugate PCV20, conjugate PCV20, 00:00:00 [facility] polysaccharide polysaccharide [id number] conjugate, [id number] conjugate, adjuvant, PF adjuvant, PF zoster recombinant - zoster recombinant - 2022-02-15 Completed [facility] ea(s) ea(s) 00:00:00 [facility] COVID-19, mRNA, COVID-19, mRNA, 2022-01-21 Completed [facility] LNP-S, PF, 30 LNP-S, PF, 30 00:00:00 [facility] mcg/0.3 mL dose, mcg/0.3 mL dose, dora-sucrose dora-sucrose ([employer]) ([employer]) COVID-19, mRNA, COVID-19, mRNA, 2022-01-21 Completed [facility] LNP-S, PF, 30 LNP-S, PF, 30 00:00:00 [facility] mcg/0.3 mL dose, mcg/0.3 mL dose, dora-sucrose dora-sucrose ([employer]) ([employer]) COVID-19, mRNA, COVID-19, mRNA, 2022-01-21 Completed [facility] LNP-S, PF, 30 LNP-S, PF, 30 00:00:00 Hospital Clinics mcg/0.3 mL dose, mcg/0.3 mL dose, dora-sucrose dora-sucrose ([employer]) ([employer]) COVID-19, mRNA, COVID-19, mRNA, 2022-01-21 Completed [facility] LNP-S, PF, 30 LNP-S, PF, 30 00:00:00 Hospital Clinics mcg/0.3 mL dose, mcg/0.3 mL dose, dora-sucrose dora-sucrose ([employer]) ([employer]) COVID-19, mRNA, COVID-19, mRNA, 2022-01-21 Completed [facility] LNP-S, PF, 30 LNP-S, PF, 30 00:00:00 [facility] mcg/0.3 mL dose, mcg/0.3 mL dose, dora-sucrose dora-sucrose ([employer]) ([employer]) COVID-19, mRNA, COVID-19, mRNA, 2022-01-21 Completed [facility] LNP-S, PF, 30 LNP-S, PF, 30 00:00:00 Hospital Clinics mcg/0.3 mL dose, mcg/0.3 mL dose, dora-sucrose dora-sucrose (Pfizer-BioNTech) (Pfizer-BioNTech) pneumococcal pneumococcal 2021-09-13 Completed [facility] conjugate PCV 13 conjugate PCV 13 00:00:00 [facility] pneumococcal pneumococcal 2021-09-13 Completed [facility] conjugate PCV 13 conjugate PCV 13 00:00:00 [facility] pneumococcal pneumococcal 2021-09-13 Completed [facility] conjugate PCV 13 conjugate PCV 13 00:00:00 [facility] pneumococcal pneumococcal 2021-09-13 Completed [facility] conjugate PCV 13 conjugate PCV 13 00:00:00 [facility] pneumococcal pneumococcal 2021-09-13 Completed [facility] conjugate PCV 13 conjugate PCV 13 00:00:00 [facility] pneumococcal pneumococcal 2021-09-13 Completed [facility] conjugate PCV 13 conjugate PCV 13 00:00:00 [facility] pneumococcal pneumococcal 2021-09-13 Completed [facility] conjugate PCV 13 conjugate PCV 13 00:00:00 [facility] pneumococcal pneumococcal 2021-09-13 Completed [facility] conjugate PCV 13 conjugate PCV 13 00:00:00 [facility] influenza, influenza, 2021-07-12 Completed [facility] ty high-dose, high-dose, 00:00:00 [facility] quadrivalent quadrivalent COVID-19, mRNA, COVID-19, mRNA, 2021-07-12 Completed [facility] LNP-S, PF, 30 LNP-S, PF, 30 00:00:00 [facility] Clin[facility] mcg/0.3 mL dose mcg/0.3 mL dose (Pfizer-BioNTech) (Pfizer-BioNTech) influenza, influenza, 2021-07-12 Completed [facility] ty high-dose, high-dose, 00:00:00 [facility] quadrivalent quadrivalent COVID-19, mRNA, COVID-19, mRNA, 2021-07-12 Completed [facility] LNP-S, PF, 30 LNP-S, PF, 30 00:00:00 Hospital Clin[facility] mcg/0.3 mL dose mcg/0.3 mL dose (Pfizer-BioNTech) (Pfizer-BioNTech) influenza, influenza, 2021-07-12 Completed [facility] ty high-dose, high-dose, 00:00:00 [facility] quadrivalent quadrivalent COVID-19, mRNA, COVID-19, mRNA, 2021-07-12 Completed [facility] LNP-S, PF, 30 LNP-S, PF, 30 00:00:00 Hospital Clin[facility] mcg/0.3 mL dose mcg/0.3 mL dose (Pfizer-BioNTech) (Pfizer-BioNTech) influenza, influenza, 2021-07-12 Completed [facility] ty high-dose, high-dose, 00:00:00 [facility] quadrivalent quadrivalent COVID-19, mRNA, COVID-19, mRNA, 2021-07-12 Completed [facility] LNP-S, PF, 30 LNP-S, PF, 30 00:00:00 Hospital Clinics mcg/0.3 mL dose mcg/0.3 mL dose (Pfizer-BioNTech) (Pfizer-BioNTech) influenza, influenza, 2021-07-12 Completed [facility] ty high-dose, high-dose, 00:00:00 [facility] quadrivalent quadrivalent COVID-19, mRNA, COVID-19, mRNA, 2021-07-12 Completed [facility] LNP-S, PF, 30 LNP-S, PF, 30 00:00:00 Hospital Clinics mcg/0.3 mL dose mcg/0.3 mL dose (Pfizer-BioNTech) (Pfizer-BioNTech) influenza, influenza, 2021-07-12 Completed [facility] ty high-dose, high-dose, 00:00:00 [facility] quadrivalent quadrivalent COVID-19, mRNA, COVID-19, mRNA, 2021-07-12 Completed [facility] LNP-S, PF, 30 LNP-S, PF, 30 00:00:00 Hospital Clinics mcg/0.3 mL dose mcg/0.3 mL dose (Pfizer-BioNTech) (Pfizer-BioNTech) influenza, influenza, 2021-07-12 Completed [facility] ty high-dose, high-dose, 00:00:00 [facility] quadrivalent quadrivalent COVID-19, mRNA, COVID-19, mRNA, 2021-07-12 Completed [facility] LNP-S, PF, 30 LNP-S, PF, 30 00:00:00 Hospital Clin[facility] mcg/0.3 mL dose mcg/0.3 mL dose (Pfizer-BioNTech) ([employer]) influenza, influenza, 2021-07-12 Completed [facility] ty high-dose, high-dose, 00:00:00 [facility] quadrivalent quadrivalent COVID-19, mRNA, COVID-19, mRNA, 2021-07-12 Completed [facility] LNP-S, PF, 30 LNP-S, PF, 30 00:00:00 Hospital Clin[facility] mcg/0.3 mL dose mcg/0.3 mL dose (Pfizer-BioNTech) (Pfizer-BioNTech) PFIZER COVID-19 MRNA 2020-12-01 Completed [facility] 00:00:00 Hospital PFIZER COVID-19 MRNA 2020-12-01 Completed [facility] VACCIN[facility] 00:00:00 [facility] PFIZER COVID-19 MRNA 2020-11-08 Completed [facility] VACCINATION 00:00:00 [facility] PFIZER COVID-19 MRNA 2020-11-08 Completed [facility] 00:00:00 Hospital influenza, influenza, 2020-05-17 Completed [facility] injectable, injectable, 00:00:00 [facility] Cli [facility]ics quadrivalent quadrivalent influenza, influenza, 2020-05-17 Completed [facility] ty injectable, injectable, 00:00:00 Hospital Cli nics quadrivalent quadrivalent influenza, influenza, 2020-05-17 Completed [facility] ty injectable, injectable, 00:00:00 Hospital Cli nics quadrivalent quadrivalent influenza, influenza, 2020-05-17 Completed [facility] ty injectable, injectable, 00:00:00 Hospital Cli nics quadrivalent quadrivalent influenza, influenza, 2020-05-17 Completed [facility] ty injectable, injectable, 00:00:00 Hospital Cli nics quadrivalent quadrivalent influenza, influenza, 2020-05-17 Completed [facility] ty injectable, injectable, 00:00:00 Hospital Cli nics quadrivalent quadrivalent influenza, influenza, 2020-05-17 Completed [facility] ty injectable, injectable, 00:00:00 Hospital Cli nics quadrivalent quadrivalent influenza, influenza, 2020-05-17 Completed [facility] ty injectable, injectable, 00:00:00 Hospital Cli nics quadrivalent quadrivalent influenza, influenza, 2020-05-17 Completed [facility] ty injectable, injectable, 00:00:00 Hospital Cli nics quadrivalent quadrivalent influenza, influenza, 2020-05-17 Completed [facility] ty injectable, injectable, 00:00:00 Hospital Cli nics quadrivalent quadrivalent influenza, influenza, 2020-05-17 Completed [facility] ty injectable, injectable, 00:00:00 Hospital Cli nics quadrivalent quadrivalent influenza, influenza, 2020-05-17 Completed [facility] ty injectable, injectable, 00:00:00 Hospital Cli nics quadrivalent quadrivalent influenza, influenza, 2020-05-17 Completed [facility] ty injectable, injectable, 00:00:00 Hospital Cli nics quadrivalent quadrivalent Influenza Virus 2018-06-07 Completed [facility] Vaccine 00:00:00 [facility] Pneumococcal 2018-06-07 Completed University o f Polysaccharide, 00:00:00 [facility] ical PPSV23 (PNEUMOVAX) Branch Influenza Virus 2018-06-07 Completed Universit y of Vaccine 00:00:00 [facility] Pneumococcal 2018-06-07 Completed University o f Polysaccharide, 00:00:00 [facility] PPSV23 (PNEUMOVAX) Branch Influenza Virus 2018-06-07 Completed Universit y of Vaccine 00:00:00 [facility] Pneumococcal 2018-06-07 Completed University o f Polysaccharide, 00:00:00 [facility] PPSV23 (PNEUMOVAX) Branch Influenza Virus 2018-06-07 Completed Universit y of Vaccine 00:00:00 [facility] Pneumococcal 2018-06-07 Completed University o f Polysaccharide, 00:00:00 [facility] ical PPSV23 (PNEUMOVAX) Branch Influenza Virus 2018-06-07 Completed Universit y of Vaccine 00:00:00 [facility] Pneumococcal 2018-06-07 Completed University o f Polysaccharide, 00:00:00 [facility] PPSV23 (PNEUMOVAX) Branch Influenza Virus 2018-06-07 Completed Universit y of Vaccine 00:00:00 [facility] Pneumococcal 2018-06-07 Completed University o f Polysaccharide, 00:00:00 [place] [facility] PPSV23 (PNEUMOVAX) Branch Influenza Virus 2018-06-07 Completed [facility]it y of Vaccine 00:00:00 [facility] Pneumococcal 2018-06-07 Completed University o f Polysaccharide, 00:00:00 [place] [facility] PPSV23 (PNEUMOVAX) Branch Influenza Virus 2018-06-07 Completed Universit y of Vaccine 00:00:00 [facility] Pneumococcal 2018-06-07 Completed University o f Polysaccharide, 00:00:00 [place] [facility] PPSV23 (PNEUMOVAX) Branch Influenza Virus 2018-06-07 Completed [facility]it y of Vaccine 00:00:00 [facility] Pneumococcal 2018-06-07 Completed University o f Polysaccharide, 00:00:00 [place] [facility] PPSV23 (PNEUMOVAX) Branch Influenza Virus 2018-06-07 Completed [facility]it y of Vaccine 00:00:00 [facility] Pneumococcal 2018-06-07 Completed University o f Polysaccharide, 00:00:00 [place] [facility] PPSV23 (PNEUMOVAX) Branch Influenza Virus 2018-06-07 Completed Universit y of Vaccine 00:00:00 [facility] Pneumococcal 2018-06-07 Completed University o f Polysaccharide, 00:00:00 [facility] ical PPSV23 (PNEUMOVAX) Branch Influenza Virus 2018-06-07 Completed Universit y of Vaccine 00:00:00 [facility] Pneumococcal 2018-06-07 Completed [facility] o f Polysaccharide, 00:00:00 [place] [facility] PPSV23 (PNEUMOVAX) Branch Influenza Virus 2018-06-07 Completed [facility] y of Vaccine 00:00:00 [facility] Pneumococcal 2018-06-07 Completed University o f Polysaccharide, 00:00:00 [place] [facility] PPSV23 (PNEUMOVAX) Branch Influenza Virus 2018-06-07 Completed [facility] y of Vaccine 00:00:00 [facility] Pneumococcal 2018-06-07 Completed [facility] o f Polysaccharide, 00:00:00 [place] [facility] PPSV23 (PNEUMOVAX) Branch Influenza Virus 2018-06-07 Completed [facility] y of Vaccine 00:00:00 [facility] Pneumococcal 2018-06-07 Completed [facility] o f Polysaccharide, 00:00:00 [place] [facility] PPSV23 (PNEUMOVAX) Branch Influenza Virus 2018-06-07 Completed [facility] y of Vaccine 00:00:00 [facility] Pneumococcal 2018-06-07 Completed [facility] o f Polysaccharide, 00:00:00 [place] [facility] PPSV23 (PNEUMOVAX) Branch Influenza Virus 2018-06-07 Completed [facility] y of Vaccine 00:00:00 [facility] Pneumococcal 2018-06-07 Completed [facility] o f Polysaccharide, 00:00:00 [place] [facility] PPSV23 (PNEUMOVAX) Branch Influenza Virus 2018-06-07 Completed [facility] y of Vaccine 00:00:00 [facility] Pneumococcal 2018-06-07 Completed University o f Polysaccharide, 00:00:00 [place] [facility] PPSV23 (PNEUMOVAX) Branch Influenza Virus 2018-06-07 Completed [facility]it y of Vaccine 00:00:00 [facility] Pneumococcal 2018-06-07 Completed [facility] o f Polysaccharide, 00:00:00 [place] [facility] PPSV23 (PNEUMOVAX) Branch Influenza Virus 2018-06-07 Completed Universit y of Vaccine 00:00:00 [facility] Pneumococcal 2018-06-07 Completed [facility] o f Polysaccharide, 00:00:00 [place] [facility] PPSV23 (PNEUMOVAX) Branch Influenza Virus 2018-06-07 Completed [facility]it y of Vaccine 00:00:00 [facility] Pneumococcal 2018-06-07 Completed University o f Polysaccharide, 00:00:00 [facility] ical PPSV23 (PNEUMOVAX) Branch Influenza Virus 2018-06-07 Completed Universit y of Vaccine 00:00:00 [facility] Pneumococcal 2018-06-07 Completed University o f Polysaccharide, 00:00:00 [facility] ical PPSV23 (PNEUMOVAX) Branch Influenza Virus 2018-06-07 Completed Universit y of Vaccine 00:00:00 [facility] Pneumococcal 2018-06-07 Completed University o f Polysaccharide, 00:00:00 [facility] ical PPSV23 (PNEUMOVAX) Branch Vital Signs Vital Name Observation Time Observation Value Comments Source BP Diastolic 2023-03-01 00:00:00 74 mm[Hg] [facility] s Height 2023-03-01 00:00:00 67 [in_i] [facility] s BMI (Body Mass 2023-03-01 00:00:00 35.1 kg/m2 [facility] Index) [facility] s BP Systolic 2023-03-01 00:00:00 122 mm[Hg] [facility] s Body Weight 2023-03-01 00:00:00 3584 [oz_av] [facility] s BP Diastolic 2023-01-18 00:00:00 74 mm[Hg] [facility] s Height 2023-01-18 00:00:00 67 [in_i] [facility] s BMI (Body Mass 2023-01-18 00:00:00 35.2 kg/m2 [facility] Index) [facility] s BP Systolic 2023-01-18 00:00:00 128 mm[Hg] [facility] s Body Weight 2023-01-18 00:00:00 3592 [oz_av] [facility] s Systolic blood 2022-12-22 16:34:00 160 mm[Hg] [facility] Diastolic blood 2022-12-22 16:34:00 79 mm[Hg] [facility] Body weight 2022-12-22 16:30:00 102.694 kg [facility] BMI 2022-12-22 16:30:00 35.46 kg/m2 [facility] Systems Systolic blood 2022-08-23 17:48:00 143 mm[Hg] Univer sity of pressure [facility] Diastolic blood 2022-08-23 17:48:00 70 mm[Hg] Unive rsity of pressure [facility] Heart rate 2022-08-23 17:48:00 66 /min [facility] Body height 2022-08-23 17:48:00 170.2 cm [facility] Body weight 2022-08-23 17:48:00 100.608 kg [facility] BMI 2022-08-23 17:48:00 34.74 kg/m2 [facility] Oxygen saturation in 2022-08-23 17:48:00 100 /min [facility] Arterial blood by [facility] Pulse oximetry Branch BP Diastolic 2022-08-12 00:00:00 84 mm[Hg] [facility] Height 2022-08-12 00:00:00 67 [in_i] [facility] BMI (Body Mass 2022-08-12 00:00:00 34.1 kg/m2 [facility] s BP Systolic 2022-08-12 00:00:00 126 mm[Hg] [facility] Body Weight 2022-08-12 00:00:00 3488 [oz_av] [facility] BP Diastolic 2022-06-28 00:00:00 82 mm[Hg] [facility] Height 2022-06-28 00:00:00 67 [in_i] [facility] s BMI (Body Mass 2022-06-28 00:00:00 33.5 kg/m2 [facility] s BP Systolic 2022-06-28 00:00:00 132 mm[Hg] [facility] Body Weight 2022-06-28 00:00:00 3424 [oz_av] [facility] Diastolic blood 2022-05-24 16:52:00 77 mm[Hg] Unive rsity of pressure [facility] Systolic blood 2022-05-24 16:52:00 149 mm[Hg] Univer sity of pressure [facility] Heart rate 2022-05-24 16:47:00 77 /min [facility] Body weight 2022-05-24 16:47:00 98.158 kg [facility] BMI 2022-05-24 16:47:00 33.89 kg/m2 [facility] Oxygen saturation in 2022-05-24 16:47:00 98 /min [facility] Arterial blood by [facility] Pulse oximetry Branch Systolic blood 2022-03-22 15:20:00 132 mm[Hg] Univer sity of pressure [facility] Diastolic blood 2022-03-22 15:20:00 75 mm[Hg] Unive rsity of pressure [facility] Heart rate 2022-03-22 15:20:00 76 /min [facility] Body weight 2022-03-22 15:20:00 97.841 kg [facility] BMI 2022-03-22 15:20:00 33.78 kg/m2 [facility] Oxygen saturation in 2022-03-22 15:20:00 99 /min [facility] Arterial blood by [facility] Pulse oximetry Branch BP Diastolic 2021-12-22 00:00:00 72 mm[Hg] [facility] Height 2021-12-22 00:00:00 67 [in_i] [facility] BMI (Body Mass 2021-12-22 00:00:00 34.9 kg/m2 [facility] BP Systolic 2021-12-22 00:00:00 118 mm[Hg] [facility] Body Weight 2021-12-22 00:00:00 3568 [oz_av] [facility] BP Diastolic 2021-11-03 00:00:00 74 mm[Hg] [facility] Height 2021-11-03 00:00:00 67 [in_i] [facility] BMI (Body Mass 2021-11-03 00:00:00 35.1 kg/m2 [facility] BP Systolic 2021-11-03 00:00:00 114 mm[Hg] [facility] Body Weight 2021-11-03 00:00:00 3584 [oz_av] [facility] BP Diastolic 2021-04-10 00:00:00 72 mm[Hg] [facility] Height 2021-04-10 00:00:00 67 [in_i] [facility] BMI (Body Mass 2021-04-10 00:00:00 34.3 kg/m2 [facility] BP Systolic 2021-04-10 00:00:00 120 mm[Hg] [facility] Body Weight 2021-04-10 00:00:00 3504 [oz_av] [facility] BP Diastolic 2021-03-19 00:00:00 70 mm[Hg] [facility] Height 2021-03-19 00:00:00 67 [in_i] [facility] BMI (Body Mass 2021-03-19 00:00:00 33.8 kg/m2 [facility] BP Systolic 2021-03-19 00:00:00 114 mm[Hg] [facility] Body Weight 2021-03-19 00:00:00 3456 [oz_av] [facility] BP Diastolic 2020-10-02 00:00:00 72 mm[Hg] [facility] Height 2020-10-02 00:00:00 67 [in_i] [facility] BMI (Body Mass 2020-10-02 00:00:00 35.5 kg/m2 [facility] BP Systolic 2020-10-02 00:00:00 134 mm[Hg] [facility] Body Weight 2020-10-02 00:00:00 3624 [oz_av] [facility] BP Diastolic 2020-09-12 00:00:00 82 mm[Hg] [facility] Height 2020-09-12 00:00:00 67 [in_i] [facility] BMI (Body Mass 2020-09-12 00:00:00 34.9 kg/m2 [facility] BP Systolic 2020-09-12 00:00:00 132 mm[Hg] [facility] Body Weight 2020-09-12 00:00:00 3568 [oz_av] [facility] Systolic blood 2021-02-13 16:50:00 129 mm[Hg] [facility] Di[facility] blood 2021-02-13 16:50:00 64 mm[Hg] [facility] pressure Heart rate 2021-02-13 16:50:00 66 /min [facility] Body temperature 2021-02-13 16:50:00 36.89 Shanae [facility] Respiratory rate 2021-02-13 16:50:00 18 /min [facility] Oxygen saturation in 2021-02-13 16:50:00 98 /min [facility] Arterial blood by Pulse oximetry BMI 2021-02-13 12:06:00 34.23 kg/m2 [facility] Body height 2021-02-13 12:06:00 170.2 cm [facility] Body weight 2021-02-13 12:06:00 99.139 kg [facility] Systolic (mm Hg) 2017-02-16 15:59:00 Matias rial Eduin Diastolic (mm Hg) 2017-02-16 15:59:00 Mem orial [place] Respitory Rate 2017-02-16 15:59:00 Memori al [place] Temperature Oral (F) 2017-02-16 15:59:00 97.7 F [facility] Heart Rate 2017-02-16 15:59:00 [facility] Temperature Oral (F) 2017-02-16 12:09:00 97.7 F Memorial [place] Systolic (mm Hg) 2017-02-16 12:09:00 Matias rial [place] Diastolic (mm Hg) 2017-02-16 12:09:00 Mem orial [place] Respitory Rate 2017-02-16 12:09:00 Memori al [place] Heart Rate 2017-02-16 12:09:00 Memorial [place] Heart Rate 2017-02-16 09:10:00 [facility] Temperature Oral (F) 2017-02-16 08:40:00 97.6 F Memorial [place] Respitory Rate 2017-02-16 08:40:00 Memori al Eduin Systolic (mm Hg) 2017-02-16 08:40:00 Matias rial [place] Diastolic (mm Hg) 2017-02-16 08:40:00 Mem orial Edu[facility] Weight 2017-02-15 12:13:00 [facility] Height 2017-02-15 12:13:00 170.18 cm [facility] BMI Calculated 2017-02-15 12:13:00 Charles Hernandez Weight 2017-02-07 23:19:[address] [facility] 2017-02-07 23:19:00 157.48 cm Abhi Denny BMI Calculated 2017-02-07 23:19:00 Charles Hernandez Procedures Procedure Date / Time Performing Clinician Source Performed REFERRAL- 2023-03-03 05:01:00 Doctor Unassigned, [facility] REQUEST/RESPONSE [facility], abdomen + pelvis, w/o 2023-01-31 00:00:00 [facility] POCT HEMOGLOBIN A1C TEST 2022-12-22 17:00:00 [facility] PATIENT FINANCIAL 2022-12-22 16:28:53 [facility] PATIENT FINANCIAL 2022-08-23 06:01:00 Doctor Unassigned, [facility] RESPONSIBILITY - ALL [facility] FORMS REFERRAL- 2022-03-18 05:01:00 Doctor Unassigned, [facility] REQUEST/RESPONSE [facility] [place] AN ELECTIVE 2021-02-13 13:12:00 Nichelle Colin [facility] ENDOTRACHEAL AIRWAY SEPTOPLASTY, NASAL 2021-02-13 12:59:00 Kala Engel [facility] XR, chest, 2 view 2020-09-12 00:00:00 [facility] Unlisted Procedure Nose 2020-05-02 00:00:00 [facility] Total thyroidectomy 2012-11-03 05:00:00 [facility] Knee [facility] replacement<sup>1</sup> Rotator cuff repair [facility] Open Reduction of Thanh Communi ty Dislocation of Hip Hospital Clin ics Total Knee Replacement [facility] Plan of Care Planned Activity Planned Date Details Comments Source Diagnostic Test 2023-03-01 urinalysis, dipstick [facility] Pending 00:00:00 [code = urinalysis, Hospital Clinics dipstick] Future Scheduled Test 2023-02-04 Screening for [facility] 03:28:10 malignant neoplasm of colon (procedure) [code = 128595708] Future Scheduled Test 2023-02-04 [facility] 03:28:10 malignant neoplasm of colon (procedure) [code = 683720431] Future Scheduled Test 2023-02-04 [facility] 03:28:10 malignant neoplasm of colon (procedure) [code = 460072064] Future Scheduled Test 2023-02-04 Hepatitis C screening [facility] 03:28:10 (procedure) [code = 736520279] Future Scheduled Test 2023-02-04 BREAST [facility]CER [facility] 03:28:10 SCREENING [code = BREAST CANCER SCREENING] Future Scheduled Test 2023-02-04 [facility] 03:28:10 malignant neoplasm of colon (procedure) [code = 978163746] Future Scheduled Test 2023-02-04 [facility] 03:28:10 malignant neoplasm of colon (procedure) [code = 293767814] Future Scheduled Test 2023-02-04 SHINGLES VACCINES (1 [facility] 03:28:10 of 2) [code = SHINGLES VACCINES (1 of 2)] Future Scheduled Test 2023-02-04 65+ PNEUMOCOCCAL [facility] 03:28:10 VACCINE (2 - PCV) [code = 65+ PNEUMOCOCCAL VACCINE (2 - PCV)] Future Scheduled Test 2023-02-04 COVID-19 VACCINE (3 - [facility] 03:28:10 Pfizer series) [code = COVID-19 VACCINE (3 - Pfizer series)] Future Scheduled Test 2023-02-04 INFLUENZA VACCINE [facility] 03:28:10 [code = INFLUENZA VACCINE] Future Scheduled Test 2021 Hepatitis C screening [facility] 18:28:15 (procedure) [code = 551312422] Future Scheduled Test 2021 BREAST CANCER [facility] 18:28:15 SCREENING [code = BREAST CANCER SCREENING] Future Scheduled Test 2021 COLONOSCOPY SCREENING [facility] 18:28:15 [code = COLONOSCOPY SCREENING] Future Scheduled Test 2021 SHINGLES VACCINES [facility] 18:28:15 (#1) [code = SHINGLES VACCINES (#1)] Future Scheduled Test 2021 INFLUENZA VACCINE [facility] 18:28:15 [code = INFLUENZA VACCINE] Future Scheduled Test 2021 COVID-19 VACCINE (3 - [facility] 18:28:15 Booster for Pfizer series) [code = COVID-19 VACCINE (3 - Booster for Pfizer series)] Future Scheduled Test Evaluate for [facility] s hematuria. [code = Evaluate for microscopic hematuria.] Future Appointment 2024-01-19 Valentino Caballero, [address] [facility] 07:40:00 [address]; [address], [place] [address] Instructions [facility] y Hospital Clinic s Encounters Start End Encounter Admission Attending Care Care Encounter Source Date/Time Date/Time Type Type Clinicians Facility Department ID 2023-05-25 2023-05-25 Outpatient R [facility] [id number] Univers 16:00:00 16:00:00 LINDA VILLELA [facility] 2023-05-25 2023-05-25 Outpatient R [facility] [id number] Univers 16:00:00 16:00:00 BRENNAN MCKEON [facility] 2023-05-25 2023-05-25 Outpatient R [facility] [id number] Univers 08:30:00 08:30:00 LINDA, [facility] 2023-03-03 2023-03-03 Orders Doctor GENE 1.2.840.114 [id number] Univers 00:00:00 00:00:00 Only Unassigned, RINA 350.1.13.10 [place] [facility] 4.2.7.2.686 Delfin as [id number] [address] 2023-03-02 2023-03-02 Outpatient ADALI_R [facility] [id number] [facility] [place] 00:00:00 00:00:00 712 Commun i ty Hospita [facility] 2023-03-01 2023-03-01 Mis [facility] [place] 00:00:00 00:00:00 Flako Felipe Comm uni [facility]URNER-C: 303 Hospital - ty N [facility] l [address], HOSPITAL Clinic s [place], [place], [address] ADALI , Ph. [phone] 2023-02-08 2023-02-08 Patient Brennan Mckeon [place] 1.2.840.114 [id number] Univers 00:00:00 00:00:00 Secure Msg HEALTH 350.1.13.10 ity [facility] 4.2.7.2.686 Delfin as LETA?BLEA [id number] [address] MEDICAL OFFICE BUILDING 2023-01-18 2023-01-18 Outpatient ERICKSON_R [facility] [id number] [place] 00:00:00 00:00:00 530 Commun i ty Hospita [facility] Clinics 2023-01-18 2023-01-18 Outpatient ERICKSON_R [facility] [id number] [place] 00:00:00 00:00:00 531 Commun i ty Hospita l Clinics 2023-01-18 2023-01-18 Outpatient ERICKSON_R [facility] [id number] [place] 00:00:00 00:00:00 601 Commun i ty Hospita l Clinics 2023-01-18 2023-01-18 Outpatient ERICKSON_R [facility] [id number] [place] 00:00:00 00:00:00 711 Commun i ty Hospita l Clinics 2023-01-18 2023-01-18 [facility] [place] 00:00:00 00:00:00 [facility] DO: [address] a [facility] [address], HOSPITAL Clinic [place], [address] ADALI , Ph. 2022-12-30 2022-12-30 Patient Doctor GENE 1.2.840.114 [id number] Univers 00:00:00 00:00:00 Secure Msg Unassigned, RINA 350.1.13.10 [place] [facility] 4.2.7.2.686 Delfin as [phone] [address] 2022-12-22 2022-12-22 [facility], Ang - Christian [facility] 1.2.840.1 14 [id number] Univers 12:45:00 13:00:00 Visit Klever Malcolm HEALTH 350.1.13.10 ity of [place] 4.2.7.2.686 Delfin as LETA?BLEA [id number] [facility] [address] MEDICAL OFFICE BUILDING 2022-12-22 2022-12-22 Office Linda [facility] 1.2.840.114 [id number] Univers 12:00:00 12:30:00 Visit HEALTH 350.1.13.10 it y of [place] 4.2.7.2.686 Delfin as LETA?BLEA [phone] [address] OFFICE [facility] 2022-12-22 2022-12-22 Outpatient R [facility] [id number] Univers 12:45:00 12:28:16 KLEVER ity [facility] 2022-12-22 2022-12-22 Orders Doctor GENE 1..840.114 [id number] Univers 00:00:00 00:00:00 Only Unassigned, RINA 350.1.13.10 it[place] of [place] [facility] 4.2.7.2.686 Delfin as [id number] [address] 2022-11-25 2022-11-25 Refill Linda [facility] 1.2.840.114 [id number] Univers 00:00:00 00:00:00 HEALTH 350.1.13.10 it y of [place] 4.2.7.2.686 Delfin as LETA?BLEA [id number] [address] MEDICAL OFFICE [facility] 2022-11-23 2022-11-23 Refill Linda [facility] 1.2.840.114 [id number] Univers 00:00:00 00:00:00 HEALTH 350.1.13.10 it y of [place] 4.2.7.2.686 Delfin as LETA?BLEA [id number] [address] MEDICAL OFFICE [facility] 2022-08-31 2022-08-31 Patient Linda [facility] 1.2.840.114 [id number] Univers 00:00:00 00:00:00 Secure [facility] 350.1.13.10 ity of [place] 4.2.7.2.686 Delfin as LETA?BLEA [phone] [facility] [address] [facility] OFFICE [facility] 2022-08-25 2022-08-25 Telephone LindaBrennan [facility] 1.2.169.417 [id number] Univers 00:00:00 00:00:00 HEALTH 350.1.13.10 it y of [place] 4.2.7.2.686 Delfin as LETA?BLEA [id number] [address] OFFICE [facility] 2022-08-23 2022-08-23 [facility], [facility] 1..840.1 14 [id number] Univers 12:30:00 12:45:00 Visit Linda Brennan HEALTH 350.1.13.10 it y of [place] 4.2.7.2.686 Delfin as LETA?BLEA [phone] [address] OFFICE [facility] 2022-08-23 2022-08-23 Outpatient R BRENNAN MCKEON [facility] [id number] Univers 12:00:00 12:21:39 LINDABRENNAN Pedraza ity [facility] 2022-08-23 2022-08-23 Office Linda Villela [facility] 1.2.840.114 [id number] Univers 12:00:00 12:21:39 Visit HEALTH 350.1.13.10 it y of [place] 4.2.7.2.686 Delfin as LETA?BLEA [id number] [address] OFFICE [facility] 2022-08-23 2022-08-23 Orders Doctor GENE 1.2.840.114 [id number] Univers 00:00:00 00:00:00 Only Unassigned, RINA 350.1.13.10 ity of [place] H[facility] 4.2.7.2.686 Delfin as [id number] [address] 2022-08-20 2022-08-20 Telephone Linda Villela [facility] 1.2.760.356 [id number] Univers 00:00:00 00:00:00 HEALTH 350.1.13.10 it y of [place] 4.2.7.2.686 Delfin as LETA?BLEA [phone] Or ludy PE[address] OFFICE [facility] 2022-08-19 2022-08-19 Outpatient ERICKSON_R [facility] [id number] [place] 00:00:00 00:00:00 203 Commun i ty Hospita l Clinics 2022-08-12 2022-08-12 Outpatient ERICKSON_R [facility] [id number] - [place] 00:00:00 00:00:00 222 Commun i ty Hospita l Clinics 2022-08-12 2022-08-12 Valentino [facility] [place] [id number] [place] 00:00:00 00:00:00 [facility] DO: [address] [facility], HOSPITAL [place], [place] CLINIC, [address] ADALI , Ph. 2022-07-01 2022-07-01 Outpatient ERICKSON_R [facility] [id number] [place] 00:00:00 00:00:00 110 Commun i ty Hospita l Clinics 2022-06-28 2022-06-28 Outpatient ERICKSON_R [facility] [id number] [place] 00:00:00 00:00:00 107 Commun i ty Hospita l Clinics 2022-06-28 2022-06-28 [facility] [place] [id number] [place] 00:00:00 00:00:00 [facility] DO: [address] [facility], HOSPITAL [place], [place] CL[place]IC, [address] ADALI , Ph. [phone] 2022-06-06 2022-06-06 Patient Brennan Mckeon [facility] 1.2.840.114 [id number] Univers 00:00:00 00:00:00 [facility] 350.1.13.10 [facility] 4.2.7.2.686 Delfin as LETA?BLEA [phone] Or ludy [address] 2022-05-24 2022-05-24 [facility], Ang - Db [facility] 1.2.840.1 14 [id number] Univers 12:30:00 12:45:00 Visit Brennan Mckeon HEALTH 350.1.13.10 it y of [place] 4.2.7.2.686 Delfin as LETA?BLEA [phone] [address] OFFICE [facility] 2022-05-24 2022-05-24 Outpatient R BRENNAN MCKEON [facility] [id number] Univers 12:00:00 12:17:33 BRENNAN MCKEON [facility] 2022-05-24 2022-05-24 Office Brennan Mckeon [facility] 1.2.840.114 [id number] Univers 12:00:00 12:17:33 Visit HEALTH 350.1.13.10 it y of [place] 4.2.7.2.686 Delfin as LETA?BLEA [id number] [address] OFFICE [facility] 2022-05-20 2022-05-20 Refill Linda [facility] 1.2.840.114 [id number] Univers 00:00:00 00:00:00 HEALTH 350.1.13.10 it y of [place] 4.2.7.2.686 Delfin as LETA?BLEA [id number] [address] OFFICE [facility] 2022-03-22 2022-03-22 [facility], Ang - Db [facility] 1.2.840.1 14 [id number] Univers 11:15:00 11:30:00 Visit Brennan Mckeon HEALTH 350.1.13.10 it y of [place] 4.2.7.2.686 Delfin as LETA?BLEA [id number] [address] OFFICE [facility] 2022-03-22 2022-03-22 Outpatient R BRENNAN MCKEON [facility] [id number] Univers 11:15:00 11:15:00 BRENNAN MCKEON [facility] 2022-03-22 2022-03-22 Office Brennan Mckeon [facility] 1.2.840.114 [id number] Univers 10:30:00 10:53:48 Visit HEALTH 350.1.13.10 it y of [place] 4.2.7.2.686 Delfin as LETA?BLEA [id number] [address] MEDICAL OFFICE BUILDING 2022-03-22 2022-03-22 Outpatient R BRENNAN MCKEON [facility] [id number] Univers 10:30:00 10:53:48 LINDA BRENNAN ity of [facility] 2022-03-22 2022-03-22 Telephone Linda, V[place]la [facility] 1.2.199.002 [id number] Univers 00:00:00 00:00:00 HEALTH 350.1.13.10 it y of [place] 4.2.7.2.686 Delfin as LETA?BLEA [id number] [address] MEDICAL OFFICE [facility] 2022-03-18 2022-03-18 Orders Doctor GENE 1.2.840.114 [id number] Univers 00:00:00 00:00:00 Only Unassigned, RINA 350.1.13.10 ity of [place] HOSPITAL 4.2.7.2.686 Delfin as [id number] [address] 2022-02-06 2022-02-06 Orders Doctor GENE 1.2.840.114 [id number] Univers 00:00:00 00:00:00 Only Unassigned, RINA 350.1.13.10 ity of [place] HOSPITAL 4.2.7.2.686 Delfin as [id number] [address] 2022-02-06 2022-02-06 [facility] 1.2.840.114 [id number] Univers 00:00:00 00:00:00 Secure Msg Josefa MULTISPEC 350.1.13.10 ity of [place].2.686 [place] [id number] [facility] AND [address] DIABETES CLINIC 2022-01-26 2022-01-26 Patient Brennan Mckeon [facility] 1.2.840.114 [id number] Univers 00:00:00 00:00:00 Secure Msg HEALTH 350.1.13.10 ity of [place] 4.2.7.2.686 Delfin as LETA?BLEA [id number] [facility] [address] [facility] OFFICE [facility] 2022-01-25 2022-01-25 Office Brennan Mckeon [facility] 1.2.840.114 [id number] Univers 16:00:00 16:00:00 Visit HEALTH 350.1.13.10 it y of [place] 4.2.7.2.686 Delfin as LETA?BLEA [id number] [address] OFFICE [facility] 2022-01-25 2022-01-25 [facility], Ang - [facility] 1.2.840.1 14 [id number] Univers 15:30:00 15:45:00 Visit Brennan [facility] 350.1.13.10 [facility] 4.2.7.2.686 Delfin as LETA?BLEA [id number] [facility] [address] [facility] OFFICE [facility] 2022-01-25 2022-01-25 Outpatient R [facility] [id number] Univers 15:30:00 15:30:00 LINDABRENNAN [facility] 2022-01-25 2022-01-25 Outpatient R [facility] [id number] Univers 16:00:00 15:17:00 BRENNAN MCKEON [facility] 2022-01-25 2022-01-25 Orders Doctor GENE 1.2.840.114 [id number] Univers 00:00:00 00:00:00 Only Unassigned, RINA 350.1.13.10 ity of [place] HOSPITAL 4.2.7.2.686 Delfin as [id number] [address] 2022-01-25 2022-01-25 Refill Linda [facility] 1.2.840.114 [id number] Univers 00:00:00 00:00:00 HEALTH 350.1.13.10 it y of [place] 4.2.7.2.686 Delfin as LETA?BLEA [id number] [address] OFFICE [facility] 2022-01-06 2022-01-06 Outpatient ERICKSON_R [facility] [id number] [place] 00:00:00 00:00:00 518 Commun i ty [facility]ospita [facility] Clinics 2021-12-24 2021-12-24 Outpatient ERICKSON_R [facility] 9480 - [place] 05:40:00 05:40:00 505 Commun i ty Hospita l Clinics 2021-12-22 2021-12-22 Outpatient ERICKSON_R [facility] [id number] [place] 05:36:00 05:36:00 503 Commun i ty Hospita l Clinics 2021-12-22 2021-12-22 Valentino [facility] [place] 00:00:00 00:00:00 [facility] DO: [address] [facility] [place] [place] [facility], [address] ADALI , Ph. [phone] 2021-12-22 2021-12-22 Outpatient Adali [facility] [id number] 00:00:00 00:00:00 Valentino [id number] Jignesh [id number] 2021-11-03 2021-11-03 Outpatient ERICKSON_R [facility] [id number] - [place] 03:57:00 03:57:00 315 [facility] 2021-11-03 2021-11-03 Valentino [facility] [place] [facility] [place] 00:00:00 00:00:00 [facility] DO: [address] [facility], [address] ADALI , Ph. 2021-11-03 2021-11-03 [facility]patient [facility] [facility] [id number] 00:00:00 00:00:00 Valentino [id number] Jginesh [id number] 2021-04-10 2021-04-10 Outpatient ERICKSON_R [facility] [id number] [place] 04:51:00 04:51:00 820 [facility] 2021-04-10 2021-04-10 Valentino [facility] [place] 00:[place]00 00:00:00 [facility] DO: [address] Hospit a [facility], HOSPITAL [place], [place] CLINIC, [address] ADALI , Ph. [phone] 2021-04-10 2021-04-10 Outpatient Adali [facility] [id number] 00:00:00 00:00:00 Valentino [id number] Jignesh [id number] 2021-04-10 2021-04-10 Outpatient Adali [facility] [id number] 00:00:00 00:00:00 Valentino [id number] Jignesh [id number] 2021-03-19 2021-03-19 Outpatient ADALI_R [facility] [id number] -[id number] [place] 05:36:00 05:36:00 729 Commun i ty Hosp[facility] Clinics 2021-03-19 2021-03-19 Outpatient Adali [facility] [id number] 00:00:00 00:00:00 Valentino [id number] Jignesh [id number] 2021-03-19 2021-03-19 Valentino [facility] [place] 00:00:00 00:00:00 [facility] DO: [address] Hospit a [facility], HOSP[place], [place] CLINIC, [address] ADALI , Ph. [phone] 2021-02-13 2021-02-13 Hospital Engel, 1.2.840.1 [id number] Methodi 05:50:00 12:51:00 Encounter Kala Lugo [address]843.1.[address] 3.430.2.7 Hospit a .3.825169 l .8 2021-02-13 2021-02-13 Surgery Engel, 1.2.840.1 [id number] Methodi 07:30:00 11:35:00 Kala [address]ha [address] 3.430.2.7 Hospit a .3.907208 l .8 2021-02-13 2021-02-13 Anesthesia Hang Peraza 1.2.840.1 1 [id number] Methodi 07:59:00 10:47:00 Event Candida Tomlinson 82583.1.[address] 3.430.2.7 Hospit a .3.548036 l .8 2021-02-13 2021-02-13 Travel 1.2.840.1 1.2.168.336 [id number] Methodi 00:00:00 00:00:[address] 3.430.2.7 0.2.7.3.698 Ho spita .3.556293 084.8 l .8 2021-02-04 2021-02-04 Travel 1.2.840.1 1.2.806.809 [id number] [id number] Methodi 00:00:00 00:00:[address] 3.430.2.7 0.2.7.3.698 Ho spita .3.772776 084.8 l .8 2021-02-03 2021-02-03 Outpatient ERICKSON_R [facility] [id number] -[id number] [place] 04:13:00 04:13:00 615 Commun i ty Hospita [facility] Clinics 2020-12-31 2020-12-31 Outpatient ERICKSON_R [facility] [id number] -[id number] [place] 01:02:00 01:02:00 512 Commun i ty Hospita l Clinics 2020-12-09 2020-12-09 Outpatient ERICKSON_R [facility] [id number] -[id number] [place] 04:07:00 04:07:00 420 Commun i ty Hosp[facility] Clinics 2020-11-26 2020-11-26 Outpatient ERICKSON_R [facility] [id number] -[id number] [place] 01:02:00 01:02:00 407 Commun i ty Hospita [facility] Clinics 2020-10-07 2020-10-07 Outpatient ERICKSON_R [facility] [id number] -[id number] [place] 12:19:00 12:19:00 216 Commun i ty Hospita l Clinics 2020-10-02 2020-10-02 Outpatient R [facility] [id number] Univers 10:00:00 10:00:00 HERNANDEZ ma [facility] 2020-10-02 2020-10-02 Outpatient ERICKSON_R [facility] [id number] -[id number] [place] 06:45:00 06:45:00 211 Commun i ty Hospita [facility] Clinics 2020-10-02 2020-10-02 Outpatient Adali, [facility] [id number] 00:00:00 00:00:00 Valentino [id number]-[id number] Jignesh [id number] 2020-10-02 2020-10-02 Valentino [facility] [place] 00:00:00 00:00:00 Jignesh [facility] DO: [address] [facility] [facility] a [facility] [address], HOSPITAL Clinic [place], [place], [address] ADALI , Ph. [phone] 2020-09-16 2020-09-16 Outpatient ERICKSON_R [facility] [id number] -[id number] [place] 12:44:00 12:44:00 126 Commun i ty Hospita l Clinics 2020-09-12 2020-09-12 Outpatient ERICKSON_R [facility] [id number] -[id number] [place] 04:39:00 04:39:00 122 Commun i ty Hospita l Clinics 2020-09-12 2020-09-12 Outpatient Adali, [facility] [id number] 00:00:00 00:00:00 Valentino [id number] Jignesh [id number] 2020-09-12 2020-09-12 [facility] [place] 22 [place] 00:00:00 00:00:00 [facility] [address] [facility] Hospit a [facility] l [address], HOSPITAL Clinic [place], [place], [address] ADALI , Ph. [phone] 2020-08-18 2020-08-18 Outpatient ADALI_R [facility] 9479 - [place] 01:03:00 01:03:00 228 Commun i ty Hospita l Clinics 2020-08-07 2020-08-07 Transition Jimmy Trujillo 1.2.840.114 [id number] Univers 00:00:00 00:00:00 of Care Karolyn Reyes 350.1.13.10 i ty of [place] 4.2.7.2.[address] [facility] [id number] [facility] [address] 2020-08-01 2020-08-06 Inpatient U HAMMO [facility] RIOS [id number] Univers 00:52:00 19:15:00 anil QUIROZ of [facility] 2020-06-25 2020-06-25 Outpatient DOVER, [facility] [id number] [place] 00:00:00 00:00:00 LISANDRO [address] 2020-06-25 2020-06-25 Outpatient DOVER, [facility] [id number] [place] 00:00:00 00:00:[address] 2020-04-29 2020-04-29 Outpatient Ester [facility] [id number] Univers 10:30:00 10:30:00 ELENI ma of [facility] 2020-04-29 2020-04-29 Laboratory Only, Adc Test [facility] 1.2.840. 114 [id number] Univers 10:02:36 10:17:36 Only Eleni Majano 350.1.13.10 ity [facility] 4.2.7.2.686 [id number] [facility] [address] 2020-04-16 2020-04-16 Ambulatory nullFlavo MNA [id number] [facility] 15:45:00 15:45:00 Pre-Reg r Neurology 00 l Nico Tamayoann 2020-04-16 2020-04-16 Ambulatory nullFlavo MNA [id number] [facility] 15:45:00 15:45:00 Pre-Reg r Neurology 00 l Nico Denny 2020-04-16 2020-04-16 Outpatient EMANUEL Rosado [facility] [id number] 10:45:00 10:45:00 Gerard Luke Salvatore 2019-03-01 2019-03-02 Outpt Diag nullFlavo [facility] [id number] Memoria 17:05:00 04:59:00 Services r Outpatient 00 l Imaging Eduin [place] 2019-03-01 2019-03-02 Outpt Diag nullFlavo [facility] [id number] Memoria 17:05:00 04:59:00 Services r Outpatient 00 l Imaging Eduin [place] 2019-03-01 2019-03-01 Outpatient Pedro MHOIP OIP [id number] 12:05:00 23:59:00 Reyes 00 2017-02-15 2017-02-16 Inpatient nullFlavo [facility] [id number] [facility] 11:01:00 18:09:00 r [place] 02 l Orthopedic [facility] 2017-02-15 2017-02-16 Inpatient nullFlavo [facility] [id number] [facility] 11:01:00 18:09:00 r Eduin 02 l Orthopedic [facility] 2017-02-15 2017-02-16 Outpatient Stan Segal [facility] [id number] 06:01:00 13:09:00 Don 02 Results Test Description Test Time Test Comments Results Result Comments Source POCT HEMOGLOBIN A1C TEST 2022-12-22 17:00:00 Test Item Value Reference Range Interpretation Comme nts POCT HBA1C (test code = 4548-4) 5.3 % 4-6 [facility] [id number] 17:00:00 Test Item Value Reference Range Interpretation Comments POCT HBA1C (test code = 4548-4) 5.3 % 4-6 [facility] W Auto Differential panel - Blood 2020-09-24 00:00:00 Test Item Value Reference Range Interpretation Comments Leukocytes [#/volume] in Blood 5.3 x10e3/uL 3.4-10.8 by Automated count (test code = 6690-2) Erythrocytes [#/volume] in 4.20 x10e6/uL 3.77-5.28 Blood by Automated count (test code = 789-8) Hemoglobin [Mass/volume] in 13.0 g/dL 11.1-15.9 Blood (test code = 718-7) Hematocrit [Volume Fraction] of 39.1 % 34.0-46.6 Blood by Automated count (test code = 4544-3) Erythrocyte mean corpuscular 93 fL 79-97 volume [Entitic volume] by Automated count (test code = 787-2) Erythrocyte mean corpuscular 31.0 pg 26.6-33.0 hemoglobin [Entitic mass] by Automated count (test code = 785-6) Erythrocyte mean corpuscular 33.2 g/dL 31.5-35.7 hemoglobin concentration [Mass/volume] by Automated count (test code = 786-4) Erythrocyte distribution width 13.7 % 11.7-15.4 [Ratio] by Automated count (test code = 788-0) Platelets [#/volume] in Blood 350 x10e3/uL 150-450 by Automated count (test code = 777-3) Neutrophils/100 leukocytes in 34 % not estab. Blood by Automated count (test code = 770-8) Lymphocytes/100 leukocytes in 55 % not estab. Blood by Automated count (test code = 736-9) Monocytes/100 leukocytes in 9 % not estab. Blood by Automated count (test code = 5905-5) Eosinophils/100 leukocytes in 1 % not estab. Blood by Automated count (test code = 713-8) Basophils/100 leukocytes in 1 % not estab. Blood by Automated count (test code = 706-2) immature cells (test code = inpatient auditor immature cells) Neutrophils [#/volume] in Blood 1.8 x10e3/uL 1.4-7.0 by Automated count (test code = 751-8) Lymphocytes [#/volume] in Blood 2.9 x10e3/uL 0.7-3.1 by Automated count (test code = 731-0) Monocytes [#/volume] in Blood 0.5 x10e3/uL 0.1-0.9 by Automated count (test code = 742-7) Eosinophils [#/volume] in Blood 0.0 x10e3/uL 0.0-0.4 by Automated count (test code = 711-2) Basophils [#/volume] in Blood 0.1 x10e3/uL 0.0-0.2 by Automated count (test code = 704-7) Immature granulocytes/100 0 % not estab. leukocytes in Blood by Automated count (test code = 78882-7) Immature granulocytes 0.0 x10e3/uL 0.0-0.1 [#/volume] in Blood by Automated count (test code = 54550-6) Nucleated erythrocytes/100 inpatient auditor leukocytes [Ratio] in Blood by Automated count (test code = 87759-3) Morphology [Interpretation] in inpatient auditor Blood Narrative (test code = 89682-2) [facility] - Serum or Qmewmw9610-40-05 00:00:00 Test Item Value Reference Range Interpretation Comments Glucose [Mass/volume] in Serum 90 mg/dL 65-99 or Plasma (test code = 2345-7) Urea nitrogen [Mass/volume] in 12 mg/dL 8-27 Serum or Plasma (test code = 3094-0) Creatinine [Mass/volume] in 0.81 mg/dL 0.57-1.00 Serum or Plasma (test code = 2160-0) Glomerular filtration 75 mL/min/1.73 >59 rate/1.73 sq M.predicted among non-blacks [Volume Rate/Area] in Serum, Plasma or Blood by Creatinine-based formula (CKD-EPI) (test code = 46424-0) Glomerular filtration 86 mL/min/1.73 >59 rate/1.73 sq M.predicted among blacks [Volume Rate/Area] in Serum, Plasma or Blood by Creatinine-based formula (CKD-EPI) (test code = 14956-1) Urea nitrogen/Creatinine [Mass 15 12-28 Ratio] in Serum or Plasma (test code = 3097-3) Sodium [Moles/volume] in Serum 142 mmol/L 134-144 or Plasma (test code = 2951-2) Potassium [Moles/volume] in 4.1 mmol/L 3.5-5.2 Serum or Plasma (test code = 2823-3) Chloride [Moles/volume] in 103 mmol/L 96-106 Serum or Plasma (test code = 2074-0) Carbon dioxide, total 25 mmol/L 20-29 [Moles/volume] in Serum or Plasma (test code = 2027-) Calcium [Mass/volume] in Serum 9.4 mg/dL 8.7-10.3 or Plasma (test code = 99038-1) Protein [Mass/volume] in Serum 7.2 g/dL 6.0-8.5 or Plasma (test code = 2885-2) Albumin [Mass/volume] in Serum 4.0 g/dL 3.8-4.8 or Plasma (test code = 1751-7) Globulin [Mass/volume] in 3.2 g/dL 1.5-4.5 Serum by calculation (test code = 23613-8) Albumin/Globulin [Mass Ratio] 1.3 1.2-2.2 in Serum or Plasma (test code = 1759-0) Bilirubin.total [Mass/volume] 0.2 mg/dL 0.0-1.2 in Serum or Plasma (test code = 1974-) Alkaline phosphatase 77 IU/L 39-117 [Enzymatic activity/volume] in Serum or Plasma (test code = 6768-6) Aspartate aminotransferase 15 IU/L 0-40 [Enzymatic activity/volume] in Serum or Plasma (test code = 1920-8) Alanine aminotransferase 10 IU/L 0-32 [Enzymatic activity/volume] in Serum or Plasma (test code = 1742-6) [facility]2017[facility] 08:39:00 Test Item Value Reference Range Interpretation Comments Hct (test code = Hct) 32.3 36.0-48.0 [facility] CenterIsttdjmKVPZRQHVGN1172-13-80 08:39:00 Test Item Value Reference Range Interpretation Comments Hgb (test code = Hgb) 11.0 12.0-16.0 [facility] CenterFzicwbyINCLOGJSDL9918-38-74 08:39:00 Test Item Value Reference Range Interpretation Comments Hct (test code = Hct) 32.3 36.0-48.0 [facility] CenterAuxigmkMIJIYJPHHS5665-32-41 08:39:00 Test Item Value Reference Range Interpretation Comments Hgb (test code = Hgb) 11.0 12.0-16.0 [facility] CenterYonjrudSWDBZKTQPN9154-05-90 08:39:00 Test Item Value Reference Range Interpretation Comments Hct (test code = Hct) 32.3 36.0-48.0 [facility] CenterToklozbFRMQILEURE1412-76-89 08:39:00 Test Item Value Reference Range Interpretation Comments Hgb (test code = Hgb) 11.0 12.0-16.0 [facility] CenterMixzpwyYNBHVOGOVX7087-88-85 08:39:00 Test Item Value Reference Range Interpretation Comments Hct (test code = Hct) 32.3 36.0-48.0 [facility] CenterRwsqvbsFUSQVEATCJ6587-81-31 08:39:00 Test Item Value Reference Range Interpretation Comments Hgb (test code = Hgb) 11.0 12.0-16.0 [facility]2017-06-22 13:35:00 Test Item Value Reference Range Interpretation Comments Creatinine Lvl (test code = Creatinine 1.05 0.50-1.40 Lvl) [facility]2017-06-22 13:35:00 Test Item Value Reference Range Interpretation Comments Calcium Lvl (test code = Calcium Lvl) 9.0 8.5-10.5 [facility]2017-06-22 13:35:00 Test Item Value Reference Range Interpretation Comments AGAP (test code = AGAP) 13.0 10.0-20.0 [facility]2017-06-22 13:35:00 Test Item Value Reference Range Interpretation Comments Chloride Lvl (test code = Chloride Lvl) 103 95-109 [facility]2017-06-22 13:35:00 Test Item Value Reference Range Interpretation Comments CO2 (test code = CO2) 27 24-32 [facility]2017-06-22 13:35:00 Test Item Value Reference Range Interpretation Comments Potassium Lvl (test code = Potassium 3.0 3.5-5.1 Lvl) [facility]2017-06-22 13:35:00 Test Item Value Reference Range Interpretation Comments Sodium Lvl (test code = Sodium Lvl) 140 135-145 [facility] CenterDbbiqvsGFUWIALVWU9133-11-25 13:35:00 Test Item Value Reference Range Interpretation Comments MCV (test code = MCV) 91.2 80.0-98.0 [facility] CenterKzxinuxVPQVHDETOV3767-84-34 13:35:00 Test Item Value Reference Range Interpretation Comments Hct (test code = Hct) 40.1 36.0-48.0 [facility] CenterMmqivsfYBDRXZNAJE6964-27-30 13:35:00 Test Item Value Reference Range Interpretation Comments MCH (test code = MCH) 30.1 pg 27.0-31.0 [place] 208647-06-22 13:35:00 Test Item Value Reference Range Interpretation Comments Hgb (test code = Hgb) 13.3 12.0-16.0 [facility] CenterLlktxhbFAVJGGNKLP1776-77-68 13:35:00 Test Item Value Reference Range Interpretation Comments MPV (test code = MPV) 7.6 7.4-10.4 [facility] CenterOjeswgsEUKIOSOREP0306-24-49 13:35:00 Test Item Value Reference Range Interpretation Comments Platelet (test code = Platelet) 357 133-450 [facility] CenterWvrfnzyLJSDGCMYCN6849-36-85 13:35:00 Test Item Value Reference Range Interpretation Comments RDW (test code = RDW) 13.2 11.5-14.5 [facility] CenterRuofvxaBAMDXAZRBZ8138-89-98 13:35:00 Test Item Value Reference Range Interpretation Comments MCHC (test code = MCHC) 33.1 32.0-36.0 [facility] CenterUwrrkrdNLAGQTMFPB6679-72-46 13:35:00 Test Item Value Reference Range Interpretation Comments RBC (test code = RBC) 4.40 4.20-5.40 [facility] CenterKsitjgyMRRUWGPOQY7740-34-56 13:35:00 Test Item Value Reference Range Interpretation Comments WBC (test code = WBC) 4.9 3.7-10.4 [facility] CenterIwrdvqgXPAADPKWLG3465-61-81 13:35:00 Test Item Value Reference Range Interpretation Comments Basophils (test code = 1.0 See_Comment [Aut omated message] The Basophils) system which ge nerated this result tra nsmitted reference range : <=1.0. The reference r nicolette was not used to int erpret this result as normal/abnormal . [facility] CenterGhasocrAKNNTAWAHL1631-30-06 13:35:00 Test Item Value Reference Range Interpretation Comments Eosinophils (test code = 2.4 See_Comment [A utomated message] The Eosinophils) system which ge nerated this result tra nsmitted reference range : <=4.0. The reference r nicolette was not used to int erpret this result as normal/abnormal . [facility]ubflbANTJDQNAAI6851-50-94 13:35:00 Test Item Value Reference Range Interpretation Comments Monocytes (test code = Monocytes) 7.8 2.0-12.0 [facility] CenterSbuiuauYAXXWAYBCJ4704-08-05 13:35:00 Test Item Value Reference Range Interpretation Comments Lymphocytes (test code = Lymphocytes) 41.4 20.0-40.0 [facility] CenterPzlcseiRQOMXGAALP8848-57-80 13:35:00 Test Item Value Reference Range Interpretation Comments Segs (test code = Segs) 47.4 45.0-75.0 [facility] CenterJlbsarcAECMWMKTMD7473-26-62 13:35:00 Test Item Value Reference Range Interpretation Comments Eosinophils # (test code 0.1 See_Comment [A utomated message] The = Eosinophils #) system whic h generated this result tra nsmitted reference range : <=0.5. The reference r nicolette was not used to int erpret this result as normal/abnormal . [facility] CenterAugaxbrZORNDNMLGL8001-96-85 13:35:00 Test Item Value Reference Range Interpretation Comments Monocytes # (test code 0.4 See_Comment [Aut omated message] The = Monocytes #) system which generated this result tra nsmitted reference range : <=0.8. The reference r nicolette was not used to int erpret this result as normal/abnormal . [facility] CenterKtoervuFELAEPDMHR6001-22-63 13:35:00 Test Item Value Reference Range Interpretation Comments Lymphocytes # (test code = Lymphocytes 2.0 1.0-5.5 #) [facility] CenterZldhjgkVLBGNXZMWJ1017-98-53 13:35:00 Test Item Value Reference Range Interpretation Comments Segs-Bands # (test code = Segs-Bands #) 2.3 1.5-8.[address] CenterStyle for Hire [id number] 13:35:00 Test Item Value Reference Range Interpretation Comments Antibody Scrn (test Negative (02/10/17 8:35 code = Antibody Scrn) AM) [facility] CenterStyle [facility] H[facility] [id number] 13:35:00 Test Item Value Reference Range Interpretation Comments ABO/Rh (test code = ABO/Rh) A POS [facility] Centerihush.comCHEM BZUII9501-30-65 13:35:00 Test Item Value Reference Range Interpretation Comments eGFR (test code = eGFR) 65 [facility]2017-06-22 13:35:00 Test Item Value Reference Range Interpretation Comments Total Protein (test code = Total 8.3 6.4-8.4 Protein) [facility]2017-06-22 13:35:00 Test Item Value Reference Range Interpretation Comments Albumin Lvl (test code = Albumin Lvl) 3.9 3.5-5.0 [facility]2017-06-22 13:35:00 Test Item Value Reference Range Interpretation Comments B/C Ratio (test code = B/C Ratio) 13 6-25 [facility]2017-06-22 13:35:00 Test Item Value Reference Range Interpretation Comments Alk Phos (test code = Alk Phos) 84 39-136 [facility]2017-06-22 13:35:00 Test Item Value Reference Range Interpretation Comments ASPARTATE TRANSAMINASE 19 See_Comment [Aut omated message] (test code = ASPARTATE The s ystem which TRANSAMINASE) generated this result transmitted ref erence range: <=37. Th e reference range was not used to interpr et this result as normal/abnormal . [facility]2017-06-22 13:35:00 Test Item Value Reference Range Interpretation Comments ALANINE AMINOTRANSFERASE 28 See_Comment [A utomated message] (test code = ALANINE The sys tem which AMINOTRANSFERASE) generated this result transmitted ref erence range: <=65. Th e reference range was not used to int erpret this result as normal/abnormal . [facility]2017-06-22 13:35:00 Test Item Value Reference Range Interpretation Comments A/G Ratio (test code = A/G Ratio) 0.9 0.7-1.6 [facility]2017-06-22 13:35:00 Test Item Value Reference Range Interpretation Comments Globulin (test code = Globulin) 4.4 2.7-4.2 [facility]2017-06-22 13:35:00 Test Item Value Reference Range Interpretation Comments Bili Total (test code = Bili Total) 0.4 0.2-1.3 [facility]2017-06-22 13:35:00 Test Item Value Reference Range Interpretation Comments Glucose Lvl (test code = Glucose Lvl) 108 70-99 [place] 391887-06-22 13:35:00 Test Item Value Reference Range Interpretation Comments BUN (test code = BUN) 14 7-[address] [facility] Centerihush.comCRITTENTON BEHAVIORAL HEALTH KKENJHJ2047-51-39 13:35:00 Test Item Value Reference Range Interpretation Comments Antibody Scrn (test Negative (02/10/17 8:35 code = Antibody Scrn) AM) [facility] Centerihush.comEvolveMol [facility] [id number] 13:35:00 Test Item Value Reference Range Interpretation Comments ABO/Rh (test code = ABO/Rh) A POS [facility] [employer] [id number] 13:35:00 Test Item Value Reference Range Interpretation Comments eGFR (test code = eGFR) 65 [facility] [employer] [id number] 13:35:00 Test Item Value Reference Range Interpretation Comments Total Protein (test code = Total 8.3 6.4-8.4 Protein) [facility] CenterTrellis Earth Products [id number] 13:35:00 Test Item Value Reference Range Interpretation Comments Albumin Lvl (test code = Albumin Lvl) 3.9 3.5-5.0 [facility] [employer] [id number] 13:35:00 Test Item Value Reference Range Interpretation Comments B/C Ratio (test code = B/C Ratio) 13 6-25 [facility] [employer] [id number] 13:35:00 Test Item Value Reference Range Interpretation Comments Alk Phos (test code = Alk Phos) 84 39-136 [facility] [employer] [id number] 13:35:00 Test Item Value Reference Range Interpretation Comments ASPARTATE TRANSAMINASE 19 See_Comment [Aut omated message] (test code = ASPARTATE The s ystem which TRANSAMINASE) generated this result transmitted ref erence range: <=37. Th e reference range was not used to interpr et this result as normal/abnormal . [facility] [employer] [id number] 13:35:00 Test Item Value Reference Range Interpretation Comments ALANINE AMINOTRANSFERASE 28 See_Comment [A utomated message] (test code = ALANINE The sys tem which AMINOTRANSFERASE) generated this result transmitted ref erence range: <=65. Th e reference range was not used to int erpret this result as normal/abnormal . [facility] [employer] [id number] 13:35:00 Test Item Value Reference Range Interpretation Comments A/G Ratio (test code = A/G Ratio) 0.9 0.7-1.6 [facility]2017-06-22 13:35:00 Test Item Value Reference Range Interpretation Comments Globulin (test code = Globulin) 4.4 2.7-4.2 [facility]2017-06-22 13:35:00 Test Item Value Reference Range Interpretation Comments Bili Total (test code = Bili Total) 0.4 0.2-1.3 [facility]2017-06-22 13:35:00 Test Item Value Reference Range Interpretation Comments Glucose Lvl (test code = Glucose Lvl) 108 70-99 [facility]2017-06-22 13:35:00 Test Item Value Reference Range Interpretation Comments BUN (test code = BUN) 14 7-22 [facility]2017-06-22 13:35:00 Test Item Value Reference Range Interpretation Comments Creatinine Lvl (test code = Creatinine 1.05 0.50-1.40 Lvl) [facility]2017-06-22 13:35:00 Test Item Value Reference Range Interpretation Comments Calcium Lvl (test code = Calcium Lvl) 9.0 8.5-10.5 [facility]2017-06-22 13:35:00 Test Item Value Reference Range Interpretation Comments AGAP (test code = AGAP) 13.0 10.0-20.0 [facility]2017-06-22 13:35:00 Test Item Value Reference Range Interpretation Comments Chloride Lvl (test code = Chloride Lvl) 103 95-109 [facility]2017-06-22 13:35:00 Test Item Value Reference Range Interpretation Comments CO2 (test code = CO2) 27 24-32 [facility]2017-06-22 13:35:00 Test Item Value Reference Range Interpretation Comments Potassium Lvl (test code = Potassium 3.0 3.5-5.1 Lvl) [facility]2017-06-22 13:35:00 Test Item Value Reference Range Interpretation Comments Sodium Lvl (test code = Sodium Lvl) 140 135-145 [facility]YoerhmhTDABTAMQSS8078-30-93 13:35:00 Test Item Value Reference Range Interpretation Comments MCV (test code = MCV) 91.2 80.0-98.0 [facility] CenterMvzanuwUIJUBQSEAC3759-29-40 13:35:00 Test Item Value Reference Range Interpretation Comments Hct (test code = Hct) 40.1 36.0-48.0 [facility] CenterDcolyifQFCQIMGVFQ0097-23-61 13:35:00 Test Item Value Reference Range Interpretation Comments MCH (test code = MCH) 30.1 pg 27.0-31.0 [facility] CenterCtryxptAFJOVUBHBA5611-53-89 13:35:00 Test Item Value Reference Range Interpretation Comments Hgb (test code = Hgb) 13.3 12.0-16.0 [facility] CenterJobxaqvIHAJVCZLYD2093-76-72 13:35:00 Test Item Value Reference Range Interpretation Comments MPV (test code = MPV) 7.6 7.4-10.4 [facility] CenterDiqqzaqSOIIBBETHJ5661-20-76 13:35:00 Test Item Value Reference Range Interpretation Comments Platelet (test code = Platelet) 357 133-450 [facility] CenterIqsskbjZIRIUEIOXU0735-42-93 13:35:00 Test Item Value Reference Range Interpretation Comments RDW (test code = RDW) 13.2 11.5-14.5 [facility] CenterBomswkyMYLCTWVKNH5370-89-62 13:35:00 Test Item Value Reference Range Interpretation Comments MCHC (test code = MCHC) 33.1 32.0-36.0 [facility] CenterXpermitGFDPDDUYYE7184-36-48 13:35:00 Test Item Value Reference Range Interpretation Comments RBC (test code = RBC) 4.40 4.20-5.40 [facility] CenterOdvtfioXBLMSMOEXQ0850-97-74 13:35:00 Test Item Value Reference Range Interpretation Comments WBC (test code = WBC) 4.9 3.7-10.4 [facility] CenterYbupltoQTFCCFUNXO6687-57-39 13:35:00 Test Item Value Reference Range Interpretation Comments Basophils (test code = 1.0 See_Comment [Aut omated message] The Basophils) system which ge nerated this result tra nsmitted reference range : <=1.0. The reference r nicolette was not used to int erpret this result as normal/abnormal . [facility] CenterJgzuenuHGUUKCUGTY8879-49-30 13:35:00 Test Item Value Reference Range Interpretation Comments Eosinophils (test code = 2.4 See_Comment [A utomated message] The Eosinophils) system which ge nerated this result tra nsmitted reference range : <=4.0. The reference r nicolette was not used to int erpret this result as normal/abnormal . [facility] 13:35:00 Test Item Value Reference Range Interpretation Comments Monocytes (test code = Monocytes) 7.8 2.0-12.0 [facility]xlboFESLGQITQL6991-84-66 13:35:00 Test Item Value Reference Range Interpretation Comments Lymphocytes (test code = Lymphocytes) 41.4 20.0-40.0 [facility] CenterDddgdlrOYPIVXYWCR2923-16-73 13:35:00 Test Item Value Reference Range Interpretation Comments Segs (test code = Segs) 47.4 45.0-75.0 [facility] CenterAxravpoDUIDJHYBHW3556-12-96 13:35:00 Test Item Value Reference Range Interpretation Comments Eosinophils # (test code 0.1 See_Comment [A utomated message] The = Eosinophils #) system whic h generated this result tra nsmitted reference range : <=0.5. The reference r nicolette was not used to int erpret this result as normal/abnormal . [facility]ZfxkqorZWIBNZUNWA1677-19-46 13:35:00 Test Item Value Reference Range Interpretation Comments Monocytes # (test code 0.4 See_Comment [Aut omated message] The = Monocytes #) system which generated this result tra nsmitted reference range : <=0.8. The reference r nicolette was not used to int erpret this result as normal/abnormal . [facility]iscoTpxlashVTUOPWOSHA9501-91-92 13:35:00 Test Item Value Reference Range Interpretation Comments Lymphocytes # (test code = Lymphocytes 2.0 1.0-5.5 #) [facility]VbgugpgWMACNTFNJN0762-28-87 13:35:00 Test Item Value Reference Range Interpretation Comments Segs-Bands # (test code = Segs-Bands #) 2.3 1.5-8.1 [facility] [employer] [id number] 13:35:00 Test Item Value Reference Range Interpretation Comments Antibody Scrn (test Negative (02/10/17 8:35 code = Antibody Scrn) AM) [facility] [employer] OWJFOQW1150-72-06 13:35:00 Test Item Value Reference Range Interpretation Comments ABO/Rh (test code = ABO/Rh) A POS [facility] [employer]CHEM EWMPG0232-47-01 13:35:00 Test Item Value Reference Range Interpretation Comments eGFR (test code = eGFR) 65 [facility]2017-06-22 13:35:00 Test Item Value Reference Range Interpretation Comments Total Protein (test code = Total 8.3 6.4-8.4 Protein) [facility]2017-06-22 13:35:00 Test Item Value Reference Range Interpretation Comments Albumin Lvl (test code = Albumin Lvl) 3.9 3.5-5.0 [facility]2017-06-22 13:35:00 Test Item Value Reference Range Interpretation Comments B/C Ratio (test code = B/C Ratio) 13 6-25 [facility]2017-06-22 13:35:00 Test Item Value Reference Range Interpretation Comments Alk Phos (test code = Alk Phos) 84 39-136 [facility]2017-06-22 13:35:00 Test Item Value Reference Range Interpretation Comments ASPARTATE TRANSAMINASE 19 See_Comment [Aut omated message] (test code = ASPARTATE The s ystem which TRANSAMINASE) generated this result transmitted ref erence range: <=37. Th e reference range was not used to interpr et this result as normal/abnormal . [facility]2017-06-22 13:35:00 Test Item Value Reference Range Interpretation Comments ALANINE AMINOTRANSFERASE 28 See_Comment [A utomated message] (test code = ALANINE The sys tem which AMINOTRANSFERASE) generated this result transmitted ref erence range: <=65. Th e reference range was not used to int erpret this result as normal/abnormal . [facility]2017-06-22 13:35:00 Test Item Value Reference Range Interpretation Comments A/G Ratio (test code = A/G Ratio) 0.9 0.7-1.6 [facility]2017-06-22 13:35:00 Test Item Value Reference Range Interpretation Comments Globulin (test code = Globulin) 4.4 2.7-4.2 [facility]2017-06-22 13:35:00 Test Item Value Reference Range Interpretation Comments Bili Total (test code = Bili Total) 0.4 0.2-1.3 [facility]2017-06-22 13:35:00 Test Item Value Reference Range Interpretation Comments Glucose Lvl (test code = Glucose Lvl) 108 70-99 [facility]2017-06-22 13:35:00 Test Item Value Reference Range Interpretation Comments BUN (test code = BUN) 14 7-22 [facility]2017-06-22 13:35:00 Test Item Value Reference Range Interpretation Comments Creatinine Lvl (test code = Creatinine 1.05 0.50-1.40 Lvl) [facility]2017-06-22 13:35:00 Test Item Value Reference Range Interpretation Comments Calcium Lvl (test code = Calcium Lvl) 9.0 8.5-10.5 [facility]2017-06-22 13:35:00 Test Item Value Reference Range Interpretation Comments AGAP (test code = AGAP) 13.0 10.0-20.0 [facility]2017-06-22 13:35:00 Test Item Value Reference Range Interpretation Comments Chloride Lvl (test code = Chloride Lvl) 103 95-109 [facility]2017-06-22 13:35:00 Test Item Value Reference Range Interpretation Comments CO2 (test code = CO2) 27 24-32 [facility]2017-06-22 13:35:00 Test Item Value Reference Range Interpretation Comments Potassium Lvl (test code = Potassium 3.0 3.5-5.1 Lvl) [facility]2017-06-22 13:35:00 Test Item Value Reference Range Interpretation Comments Sodium Lvl (test code = Sodium Lvl) 140 135-145 [facility] CenterGjvarlpLZANALWLDZ5912-54-22 13:35:00 Test Item Value Reference Range Interpretation Comments MCV (test code = MCV) 91.2 80.0-98.0 [facility] CenterQqalsgiCNEKTLWRLE5323-72-00 13:35:00 Test Item Value Reference Range Interpretation Comments Hct (test code = Hct) 40.1 36.0-48.0 [facility] CenterZqsiufzKUSLUKWXKW2319-73-51 13:35:00 Test Item Value Reference Range Interpretation Comments MCH (test code = MCH) 30.1 pg 27.0-31.0 [facility] CenterNpriuvgXCOYZKRKRQ8481-82-67 13:35:00 Test Item Value Reference Range Interpretation Comments Hgb (test code = Hgb) 13.3 12.0-16.0 [facility] CenterYzxxluhROWUZXQAYO9398-50-20 13:35:00 Test Item Value Reference Range Interpretation Comments MPV (test code = MPV) 7.6 7.4-10.4 [facility] CenterYyzyfvrBILXLBLZHH6580-65-14 13:35:00 Test Item Value Reference Range Interpretation Comments Platelet (test code = Platelet) 357 133-450 [facility] CenterRwlpijgZNSKOJJKYY1701-34-39 13:35:00 Test Item Value Reference Range Interpretation Comments RDW (test code = RDW) 13.2 11.5-14.5 [facility] CenterSjmokvnPSJASUAUBI2094-70-39 13:35:00 Test Item Value Reference Range Interpretation Comments MCHC (test code = MCHC) 33.1 32.0-36.0 [facility] CenterMgmhytnOUZTUKOMJB7142-35-84 13:35:00 Test Item Value Reference Range Interpretation Comments RBC (test code = RBC) 4.40 4.20-5.40 [facility] CenterBznubzqFBLXMNQBDY4398-86-60 13:35:00 Test Item Value Reference Range Interpretation Comments WBC (test code = WBC) 4.9 3.7-10.4 [facility] CenterYaybxigLBSHIYQIIQ1100-74-01 13:35:00 Test Item Value Reference Range Interpretation Comments Basophils (test code = 1.0 See_Comment [Aut omated message] The Basophils) system which ge nerated this result tra nsmitted reference range : <=1.0. The reference r nicolette was not used to int erpret this result as normal/abnormal . [facility] CenterSbkijsnOGVUOQWBLE7794-49-03 13:35:00 Test Item Value Reference Range Interpretation Comments Eosinophils (test code = 2.4 See_Comment [A utomated message] The Eosinophils) system which ge nerated this result tra nsmitted reference range : <=4.0. The reference r nicolette was not used to int erpret this result as normal/abnormal . [facility] CenterWfcysvmARHTNVRKEM6475-77-00 13:35:00 Test Item Value Reference Range Interpretation Comments Monocytes (test code = Monocytes) 7.8 2.0-12.0 [facility] CenterIvolaupXSZJWKMKBW0328-12-13 13:35:00 Test Item Value Reference Range Interpretation Comments Lymphocytes (test code = Lymphocytes) 41.4 20.0-40.0 [facility] CenterWikeezjYZOGYKPJGD6822-05-21 13:35:00 Test Item Value Reference Range Interpretation Comments Segs (test code = Segs) 47.4 45.0-75.[address] [facility] CenterTetmncePRUSJXNAHF6728-27-73 13:35:00 Test Item Value Reference Range Interpretation Comments Eosinophils # (test code 0.1 See_Comment [A utomated message] The = Eosinophils #) system whic h generated this result tra nsmitted reference range : <=0.5. The reference r nicolette was not used to int erpret this result as normal/abnormal . [facility] CenterQwochfgTFPGFLRQSV9748-04-42 13:35:00 Test Item Value Reference Range Interpretation Comments Monocytes # (test code 0.4 See_Comment [Aut omated message] The = Monocytes #) system which generated this result tra nsmitted reference range : <=0.8. The reference r nicolette was not used to int erpret this result as normal/abnormal . [facility] CenterAdzylcwUBDCFHACVG2646-92-62 13:35:00 Test Item Value Reference Range Interpretation Comments Lymphocytes # (test code = Lymphocytes 2.0 1.0-5.5 #) [facility] CenterVbvqpjwUGPKSKDNDN0164-95-78 13:35:00 Test Item Value Reference Range Interpretation Comments Segs-Bands # (test code = Segs-Bands #) 2.3 1.5-8.1 [employer] [id number] 13:35:00 Test Item Value Reference Range Interpretation Comments Antibody Scrn (test Negative (02/10/17 8:35 code = Antibody Scrn) AM) [facility] [employer] EERCZSB2203-00-42 13:35:00 Test Item Value Reference Range Interpretation Comments ABO/Rh (test code = ABO/Rh) A POS [facility] [employer] [id number] 13:35:00 Test Item Value Reference Range Interpretation Comments eGFR (test code = eGFR) 65 [facility] [employer]2017-06-22 13:35:00 Test Item Value Reference Range Interpretation Comments Total Protein (test code = Total 8.3 6.4-8.4 Protein) [facility] [employer]2017-06-22 13:35:00 Test Item Value Reference Range Interpretation Comments Albumin Lvl (test code = Albumin Lvl) 3.9 3.5-5.0 [facility]2017-06-22 13:35:00 Test Item Value Reference Range Interpretation Comments B/C Ratio (test code = B/C Ratio) 13 6-25 [facility]2017-06-22 13:35:00 Test Item Value Reference Range Interpretation Comments Alk Phos (test code = Alk Phos) 84 39-136 [facility]2017-06-22 13:35:00 Test Item Value Reference Range Interpretation Comments ASPARTATE TRANSAMINASE 19 See_Comment [Aut omated message] (test code = ASPARTATE The s ystem which TRANSAMINASE) generated this result transmitted ref erence range: <=37. Th e reference range was not used to interpr et this result as normal/abnormal . [facility]2017-06-22 13:35:00 Test Item Value Reference Range Interpretation Comments ALANINE AMINOTRANSFERASE 28 See_Comment [A utomated message] (test code = ALANINE The sys tem which AMINOTRANSFERASE) generated this result transmitted ref erence range: <=65. Th e reference range was not used to int erpret this result as normal/abnormal . [facility]2017-06-22 13:35:00 Test Item Value Reference Range Interpretation Comments A/G Ratio (test code = A/G Ratio) 0.9 0.7-1.6 [facility]2017-06-22 13:35:00 Test Item Value Reference Range Interpretation Comments Globulin (test code = Globulin) 4.4 2.7-4.2 [facility]2017-06-22 13:35:00 Test Item Value Reference Range Interpretation Comments Bili Total (test code = Bili Total) 0.4 0.2-1.3 [facility]2017-06-22 13:35:00 Test Item Value Reference Range Interpretation Comments Glucose Lvl (test code = Glucose Lvl) 108 70-99 [facility]2017-06-22 13:35:00 Test Item Value Reference Range Interpretation Comments BUN (test code = BUN) 14 7-22 [facility]2017-06-22 13:35:00 Test Item Value Reference Range Interpretation Comments Creatinine Lvl (test code = Creatinine 1.05 0.50-1.40 Lvl) [facility]2017-06-22 13:35:00 Test Item Value Reference Range Interpretation Comments Calcium Lvl (test code = Calcium Lvl) 9.0 8.5-10.5 [facility]2017-06-22 13:35:00 Test Item Value Reference Range Interpretation Comments AGAP (test code = AGAP) 13.0 10.0-20.0 [facility]2017-06-22 13:35:00 Test Item Value Reference Range Interpretation Comments Chloride Lvl (test code = Chloride Lvl) 103 95-109 [facility]2017-06-22 13:35:00 Test Item Value Reference Range Interpretation Comments CO2 (test code = CO2) 27 24-32 [facility]2017-06-22 13:35:00 Test Item Value Reference Range Interpretation Comments Potassium Lvl (test code = Potassium 3.0 3.5-5.1 Lvl) [facility]2017-06-22 13:35:00 Test Item Value Reference Range Interpretation Comments Sodium Lvl (test code = Sodium Lvl) 140 135-145 [facility] CenterVjvbljuPNPSBXQOQU2809-55-42 13:35:00 Test Item Value Reference Range Interpretation Comments MCV (test code = MCV) 91.2 80.0-98.0 [facility] CenterCbhkoghAOUHVCSQIM3307-83-50 13:35:00 Test Item Value Reference Range Interpretation Comments Hct (test code = Hct) 40.1 36.0-48.0 [facility] CenterYocrnwkMXXLXVAGNR8874-99-63 13:35:00 Test Item Value Reference Range Interpretation Comments MCH (test code = MCH) 30.1 pg 27.0-31.0 [facility] CenterHdaqbheHOUDHOJABP1579-43-15 13:35:00 Test Item Value Reference Range Interpretation Comments Hgb (test code = Hgb) 13.3 12.0-16.0 [facility] CenterUakezupYZSUCRRIBD2491-43-65 13:35:00 Test Item Value Reference Range Interpretation Comments MPV (test code = MPV) 7.6 7.4-10.4 [facility] CenterAsyjbyeKONRQZJOZB8706-02-47 13:35:00 Test Item Value Reference Range Interpretation Comments Platelet (test code = Platelet) 357 133-450 [facility] CenterBkbxaltKJGLYAXZFS9922-13-92 13:35:00 Test Item Value Reference Range Interpretation Comments RDW (test code = RDW) 13.2 11.5-14.5 [facility] CenterAlevfjxXCKTNDAGBN3881-35-94 13:35:00 Test Item Value Reference Range Interpretation Comments MCHC (test code = MCHC) 33.1 32.0-36.0 [facility] CenterTedwkdoSOPBTNCUQW9509-74-49 13:35:00 Test Item Value Reference Range Interpretation Comments RBC (test code = RBC) 4.40 4.20-5.40 [facility] CenterDhfnyffZKIDDLGDAR8141-14-00 13:35:00 Test Item Value Reference Range Interpretation Comments WBC (test code = WBC) 4.9 3.7-10.4 [facility] CenterJxpzoahYPKQWSDTOQ1428-38-59 13:35:00 Test Item Value Reference Range Interpretation Comments Basophils (test code = 1.0 See_Comment [Aut omated message] The Basophils) system which ge nerated this result tra nsmitted reference range : <=1.0. The reference r nicolette was not used to int erpret this result as normal/abnormal . [facility] CenterNsdlpsoSSHRQNSTLK7722-06-74 13:35:00 Test Item Value Reference Range Interpretation Comments Eosinophils (test code = 2.4 See_Comment [A utomated message] The Eosinophils) system which ge nerated this result tra nsmitted reference range : <=4.0. The reference r nicolette was not used to int erpret this result as normal/abnormal . [facility] CenterVfrbtzyHGTZUILBMN9087-06-14 13:35:00 Test Item Value Reference Range Interpretation Comments Monocytes (test code = Monocytes) 7.8 2.0-12.0 [facility] CenterAtpdypiYXKGVNLJSE5641-88-63 13:35:00 Test Item Value Reference Range Interpretation Comments Lymphocytes (test code = Lymphocytes) 41.4 20.0-40.0 [facility] CenterVelzgodQMQJDXJOWO8126-38-47 13:35:00 Test Item Value Reference Range Interpretation Comments Segs (test code = Segs) 47.4 45.0-75.0 [facility] CenterRvcegjuGZRFDJZGPZ3369-34-23 13:35:00 Test Item Value Reference Range Interpretation Comments Eosinophils # (test code 0.1 See_Comment [A utomated message] The = Eosinophils #) system whic h generated this result tra nsmitted reference range : <=0.5. The reference r nicolette was not used to int erpret this result as normal/abnormal . [facility] CenterSifhsjvSGWHWCSWOT5117-93-06 13:35:00 Test Item Value Reference Range Interpretation Comments Monocytes # (test code 0.4 See_Comment [Aut omated message] The = Monocytes #) system which generated this result tra nsmitted reference range : <=0.8. The reference r nicolette was not used to int erpret this result as normal/abnormal . [facility] CenterNmghlqeUPTLVTJJZH1123-10-40 13:35:00 Test Item Value Reference Range Interpretation Comments Lymphocytes # (test code = Lymphocytes 2.0 1.0-5.5 #) [facility] CenterYlwfkilYHRLWTIHYY2539-00-63 13:35:00 Test Item Value Reference Range Interpretation Comments Segs-Bands # (test code = Segs-Bands #) 2.3 1.5-8.1 [facility] Notes Date/Time Note Provider Source 2019-03-01 12:49:00-00:00 EXAM: THYROID ULTRASOUND SRINIVASA Han INDICATION: Thyroid goiter. Patient reports prio r thyroidectomy. COMPARISON: None. TECHNIQUE: Multiplanar matt adina and color Doppler ultrasound of the neck were obtained in the area of the thyroid. FINDINGS: Thyroid: No thyroid tissue i s appreciated on these images. No circumscribed mass. Cervical lymph nodes: No adenopathy on the submi tted images. IMPRESSION: No thyroid tissue appreciated. REFERENCE: Evarts BR et al. 2015 [place] [employer] Management Guidelines for Adult Patients with Thyroid Nodules and Differentiated Thyroid Cancer. Thyroid. 2016; 26(1):1-133. SL: [id number] 2017-02-15 13:10:00-00:00 EXAM: XR PELVIS 1 VIEW [facility] DATE: 02/15/2017 11:33 AM CDT INDICATION: Joint [...] Status post total left hip arthroplasty in sa tisfactory alignment. 2. No acute fracture. 2017-02-15 10:50:00-00:00 EXAM: XR LEFT HIP 1 VIEW [facility] DATE: 02/15/2017 9:45 AM CDT INDICATION: LEFT TOTAL HIP ARTHROPLASTY - INTRA- OP LEFT HIP COMPARISON: None TECHNIQUE: 1 view of the hip including the pelvi s FINDINGS: Intraoperative radiograph demonstrating left fem oral rasp and acetabular cup. No acute fracture seen. IMPRESSION: 1. Intraoperative radiograph demonstrating femoral measuring rasp and acetabular cup. 2. No acute fracture.
[2023-03-03 20:55] LABS: Urine Bacteria <20 /HPF (<20); Urine Bilirubin NEGATIVE (Negative); Urine Blood 1+ (Negative); Urine Clarity Clear (Clear); Urine Color Light-Yellow (Yellow); Urine Glucose NEGATIVE (Negative); Urine Mucus Slight /HPF (None Seen); Urine Protein NEGATIVE (Negative); Urine RBC <5 /HPF (None Seen); Urine Urobilinogen Normal (Normal)
[2023-03-03] MEDS ORDERED: KETOROLAC 30 MG/ML INJ ONE (21:00)
--- NOTE | 2023-03-03 21:55 | RAD REPORT ---
EXAM DESCRIPTION: CTAbdomen Pelvis W Contrast - 03/03/2023 9:46 pm CLINICAL HISTORY: Abdominal pain. HEMATURIA COMPARISON: No comparisons TECHNIQUE: Biphasic CT imaging of the abdomen and pelvis was performed with 100 ml non-ionic IV cont rast. All CT scans are performed using dose optimization technique as appropriate and may include automated exposure control or mA/KV adjustment according to patient size. FINDINGS: The lung bases are clear. The liver, spleen, pancreas, adrenal glands and kidneys are within normal limits. Small fat containin g umbilical hernia. No bowel obstruction, free air, free fluid or abscess. Nonvisualized appendix. No evidence of signi ficant lymphadenopathy. Left total hip arthroplasty. Moderate lumbar degenerative changes. IMPRESSION: No acute intra-abdominal or pelvic finding.
--- NOTE | 2023-03-03 22:20 | ER ---
Nurse's Notes [facility] Name: Tracy Peterson Age: 72 yrs Sex: Female : 1950 Arrival Date: 03/03/2023 Time: 18:46 Bed 27 Private MD: Diagnosis: Gross hematuria Presentation: 03/03 19:00 Chief complaint:. Coronavirus screen: Client denies travel out of the [place] in the last ll1 14 days. At this time, the client does not indicate any symptoms associated with coronavirus-19. Coronavirus screen: Vaccine status: Patient reports receiving the 2nd dose of the covid vaccine. Ebola Screen: Patient denies travel to an Ebola-affected area in the 21 days before illness onset. Initial Sepsis Screen: Does the patient meet any 2 criteria? No. Patient's initial sepsis screen is negative. Does the patient have a suspected source of infection? Yes: Dysuria/Frequency/Urgency/UTI. Risk Assessment: Do you want to hurt yourself or someone else? Patient reports no desire to harm self or others. Onset of symptoms was February 24, 2023. 19:00 Method Of Arrival: Ambulatory ll1 19:00 Acuity: TRICIA 3 ll1 19:02 Chief complaint: Patient states: L lower back pain for 1 week. Slight burning with ll1 urination. No fever. Triage Assessment: 20:59 General: Appears uncomfortable, Behavior is calm, cooperative. Pain: Complains of pain kd3 in low back area and left low back. Neuro: Level of Consciousness is awake, alert, obeys commands, Oriented to person, place, time, situation. Historical: - Allergies: 18:53 No Known Allergies; ll1 - PMHx: 18:53 Hypothyroidism; Hypertension; ll1 - Immunization history:: Adult Immunizations up to date. - Social history:: Smoking status: Patient denies any tobacco usage or history of. Screenin:59 [facility] ED Fall Risk Assessment (Adult) History of falling in the last 3 months, kd3 including since admission No falls in past 3 months (0 pts) Confusion or Disorientation No (0 pts) Intoxicated or Sedated No (0 pts) Impaired Gait No (0 pts) Mobility Assist Device Used No (0 pt) Altered Elimination No (0 pt) Score/Fall Risk Level 0 - 2 = Low Risk Maintained a safe environment. Abuse screen: Denies threats or abuse. Denies injuries from another. Nutritional screening: No deficits noted. Tuberculosis screening: No symptoms or risk factors identified. Vital Signs: 19:00 BP 169 / 80; Pulse 65; Resp 17; Temp 97.1; Pulse Ox 98% ; Weight 99.79 kg; Height 5 ft. ll1 7 in. ; Pain 7/10; 20:58 BP 130 / 70; Pulse 55; Resp 19; Pulse Ox 100% ; kd3 22:22 BP 128 / 73; Pulse 58; Resp 19; Pulse Ox 100% on R/A; kd3 19:00 Body Mass Index 34.46 (99.79 kg, 170.18 cm) ll1 19:00 Pain Scale: Adult ll1 ED Course: 18:50 Patient arrived in ED. rv1 18:53 Arm band placed on. ll1 19:02 Triage completed. ll1 19:16 Maria Luisa Anton PA-C is PHCP. sb4 19:16 Ravin Iglesias MD is Attending Physician. sb4 20:53 [facility] Sent. rv1 20:58 Dawn Ruiz, IRMA is Primary Nurse. kd3 20:59 Patient has correct armband on for positive identification. kd3 21:34 Inserted saline lock: 20 gauge in left antecubital area, using aseptic technique. Blood kd3 collected. 21:48 CT Abd/Pelvis - IV Contrast Only In Process Unspecified. EDMS 22:18 Zen Jimenez MD is Referral Physician. sb4 22:26 Provided Education on: . kd3 22:26 No provider procedures requiring assistance completed. IV discontinued, intact, kd3 bleeding controlled, No redness/swelling at site. Pressure dressing applied. Administered Medications: 20:56 Drug: Ketorolac IM 30 mg Route: IM; Site: left deltoid; kd3 22:26 Follow up: Response: No adverse reaction; Pain is decreased kd3 Medication: 20:59 VIS not applicable for this client. kd3 Outcome: 22:19 Discharge ordered by . sb4 22:26 Discharged to home ambulatory. kd3 22:26 Condition: stable 22:26 Discharge instructions given to patient, Instructed on discharge instructions, follow up and referral plans. Demonstrated understanding of instructions, follow-up care. 22:26 Patient left the ED. kd3 Signatures: Dispatcher [employer] EDMS Mila Adamssay, RN RN ll1 Dawn Ruiz RN RN kd3 Maria Luisa Anton, HANK PAEdgar sb4 [facility]
--- NOTE | 2023-03-03 22:20 | EDPHYS ---
Physician Documentation [facility] Name: Tracy Peterson Age: 72 yrs Sex: Female : 1950 Arrival Date: 03/03/2023 Time: 18:46 Bed 27 Private MD: ED Physician Ravin Iglesias HPI: 03/04 02:29 This 72 yrs old Black Female presents to ER via Ambulatory with complaints of Low Back sb4 Pain. 02:29 The patient presents with pain that is acute, with no known mechanism of injury. The sb4 symptoms are located in the left low back. The pain does not radiate. The problem was sustained without known cause. Onset: The symptoms/episode began/occurred gradually. Modifying factors: The patient symptoms are alleviated by nothing, the patient symptoms are aggravated by nothing. Associated signs and symptoms: Pertinent positives: dysuria, hematuria, Pertinent negatives: abdominal pain, constipation, headache, nausea, urinary retention, vomiting. The patient has been recently seen by a physician: the patient's primary care provider. 02:29 patient presents with complaints of left flank pain that does not radiate, states it sb4 has gradually been worsening over the last month. reports some dysuria, no fevers, no radiated pain, abd pain, n/v/d. Historical: - Allergies: 03/03 18:53 No Known Allergies; ll1 - PMHx: 18:53 Hypothyroidism; Hypertension; ll1 - Immunization history:: Adult Immunizations up to date. - Social history:: Smoking status: Patient denies any tobacco usage or history of. ROS: 03/04 02:29 Constitutional: Negative for fever, chills, and weight loss. sb4 Back: Positive for flank pain, on the right. : Positive for hematuria, burning with urination, Negative for difficulty urinating, bladder incontinence, foul smelling urine. All other systems are negative. Exam: 02:29 Constitutional: This is a well developed, well nourished patient who is awake, alert, sb4 and in no acute distress. Head/Face: Normocephalic, atraumatic. Eyes: Extra-ocular motions intact. Periorbital areas with no swelling, redness, or edema. Cardiovascular: Regular rate and rhythm with a normal S1 and S2. Respiratory: Lungs have equal breath sounds bilaterally, clear to auscultation and percussion. No rales, rhonchi or wheezes noted. No increased work of breathing, no retractions or nasal flaring. Abdomen/GI: Soft, non-tender, no distension. Back: No spinal tenderness. No costovertebral tenderness. Full range of motion. Skin: Warm, dry with normal turgor. Normal color with no rashes, no lesions, and no evidence of cellulitis. MS/ Extremity: Pulses equal, no cyanosis. Neurovascular intact. Full, normal range of motion. Vital Signs: 03/03 19:00 BP 169 / 80; Pulse 65; Resp 17; Temp 97.1; Pulse Ox 98% ; Weight 99.79 kg; Height 5 ft. ll1 7 in. ; Pain 7/10; 20:58 BP 130 / 70; Pulse 55; Resp 19; Pulse Ox 100% ; kd3 22:22 BP 128 / 73; Pulse 58; Resp 19; Pulse Ox 100% on R/A; kd3 19:00 Body Mass Index 34.46 (99.79 kg, 170.18 cm) ll1 19:00 Pain Scale: Adult ll1 MDM: 19:16 Patient medically screened. sb4 03/04 02:29 Differential diagnosis: arthritis, strain, fracture, sciatica, contusion, Herniated sb4 disc UTI. Data reviewed: vital signs, nurses notes, radiologic studies, CT scan, I have discussed the patient's presentation/case with the attending Emergency Department Physician; and as a result, I will discharge patient. Consideration of Admission/Observation Escalation of care including admission/observation considered. I considered the following discharge prescriptions or medication management in the emergency department Antibiotics: At this time antibiotics are not recommended. Test considered but Not performed: Labs: not indicated at this time. Historians other than the Patient: Daughter/Son: daughter. Care significantly affected by the following chronic conditions: Hypertension. Counseling: I had a detailed discussion with the patient and/or guardian regarding: the historical points, exam findings, and any diagnostic results supporting the discharge/admit diagnosis, radiology results, the need for outpatient follow up, a urologist. Special discussion: Based on the history and exam findings, there is no indication for further emergent testing or inpatient evaluation. I discussed with the patient/guardian the need to see the urologist for further evaluation of the symptoms. 03/03 19:16 Order name: [facility]; Complete Time: 21:10 sb4 03/03 21:21 Order name: CT Abd/Pelvis - IV Contrast Only; Complete Time: 21:56 sb4 Administered Medications: 03/03 20:56 Drug: Ketorolac IM 30 mg Route: IM; Site: left deltoid; kd3 22:26 Follow up: Response: No adverse reaction; Pain is decreased kd3 Disposition: 03/04 10:01 Co-signature as Attending Physician, Ravin Iglesias MD I reviewed the patient's care rt provided by the Advanced Practice Provider and agree with the diagnosis and treatment plan. Disposition Summary: 03/03/23 22:19 Discharge Ordered Location: Home sb4 Problem: an ongoing problem sb4 Symptoms: are unchanged sb4 Condition: Stable sb4 Diagnosis - Gross hematuria sb4 Followup: sb4 - With: Zen Jimenez MD - When: 2 - 3 days - Reason: Further diagnostic work-up, Recheck today's complaints, Re-evaluation by your physician Discharge Instructions: - Discharge Summary Sheet sb4 - Hematuria, Adult sb4 Forms: - Medication Reconciliation Form sb4 - Thank You Letter sb4 - Antibiotic Education sb4 - Prescription Opioid Use sb4 - Patient Portal Instructions sb4 Signatures: Dispatcher [employer] Hakeem Knight RN RN ll1 Dawn Ruiz RN RN kd3 Maria Luisa Anton PA-C PAEdgar sb4 Ravin Iglesias MD MD rt
[2023-03-03 23:48] VITALS: TEMP 97.1
[2023-03-03 23:50] VITALS: O2SAT 100
[2023-03-03 23:51] VITALS: BP 128/73
== END 2023-03-03 22:26 | disposition home or self-care (01) ==
LOC: ER 18:46
DX: R31.0 Gross hematuria (principal); R30.0 Dysuria; M54.50 Low back pain, unspecified; I10 Essential (primary) hypertension
CPT/HCPCS: 81001; 82565; 74177; 96372; 99284; Q9967

== ENCOUNTER 2023-08-19 06:39 | Day surgery (SDC) | payer BC ==
[2023-08-17 11:11] LABS: Potassium 3.9 mEq/L (3.5-5.1)
--- NOTE | 2023-08-18 13:23 | EKG ---
Test Date: 2023-08-17 Test Time: 11:32:27 Broadcast Operations Manager: ELLY MEASUREMENT RESULTS: Intervals: Rate: 51 [place]: 182 QRSD: 84 QT: 430 QTc: 396 [place]: P: -10 [place]: 182 QRS: 1 T: -22 INTERPRETIVE STATEMENTS: Sinus bradycardia with sinus arrhythmia Nonspecific T wave abnormality Abnormal ECG Compared to ECG 03/16/2020 20:11:06 T-wave abnormality now present Sinus rhythm no longer present Electronically Signed On 08-18-23 13:20:00 MEAT PROCESS WORKER by Onel Rocha
[2023-08-19] MEDS ORDERED: Ringers Lactate 1,000 ML IV ONE (06:54)
[2023-08-19] MEDS ORDERED: LIDOCAINE 1% MPF 5 ML VIAL ONE (08:48)
[2023-08-19] MEDS ORDERED: propofoL 200 MG/20 ML VIAL IV ONE (08:48)
[2023-08-19 10:20] VITALS: TEMP 98.6; O2SAT 97
[2023-08-19 10:28] VITALS: BP 122/65
== END 2023-08-19 10:15 | disposition home or self-care (01) ==
LOC: OR 06:39
PROVIDERS: ATTEND Surgery
PROC: 0DBH8ZX Excision of Cecum, Via Natural or Artificial Opening Endoscopic, Diagnostic (ICD-10-PCS; 2023-08-19)
PROC: 0DBK8ZX Excision of Ascending Colon, Via Natural or Artificial Opening Endoscopic, Diagnostic (ICD-10-PCS; principal; 2023-08-19 08:15)
DX: Z12.11 Encounter for screening for malignant neoplasm of colon (principal); K64.8 Other hemorrhoids; D12.2 Benign neoplasm of ascending colon; D12.0 Benign neoplasm of cecum
CPT/HCPCS: 93005; 80048; 36415; 88305; 45385; J2704; J2001; J7120

== ENCOUNTER 2024-02-24 23:57 | Emergency (ER) | payer BC ==
[2024-02-25] MEDS ORDERED: KETOROLAC 30 MG/ML INJ ONE (03:07)
--- NOTE | 2024-02-25 06:36 | ER ---
Nurse's Notes [facility] Name: Tracy Peterson Age: 73 yrs Sex: Female : 1950 Arrival Date: 02/24/2024 Time: 23:57 Bed 15 Private MD: Diagnosis: Chronic pain, not elsewhere classified Presentation: 02/24 00:19 Chief complaint: Patient states: c/o L side pain for past several months, pain got the al5 worst today. Coronavirus screen: At this time, the client does not indicate any symptoms associated with coronavirus-19. Ebola Screen: No symptoms or risks identified at this time. Initial Sepsis Screen: Does the patient meet any 2 criteria? No. Patient's initial sepsis screen is negative. Does the patient have a suspected source of infection? No. Patient's initial sepsis screen is negative. Risk Assessment: Do you want to hurt yourself or someone else? Patient reports no desire to harm self or others. Onset of symptoms was February 25, 2024. 00:19 Method Of Arrival: Ambulatory al5 00:19 Acuity: TRICIA 3 al5 Triage Assessment: 00:26 General: Appears in no apparent distress. Behavior is calm, cooperative. Pain: al5 Complains of pain in left low back and left mid back Pain currently is 5 out of 10 on a pain scale. EENT: No deficits noted. No signs and/or symptoms were reported regarding the EENT system. Neuro: No deficits noted. Level of Consciousness is awake, alert, obeys commands, Oriented to person, place, time, situation. Cardiovascular: No deficits noted. Capillary refill < 3 seconds Patient's skin is warm and dry. Respiratory: No deficits noted. Airway is patent Trachea midline Respiratory effort is even, unlabored, Respiratory pattern is regular, symmetrical. GI: No deficits noted. No signs and/or symptoms were reported involving the gastrointestinal system. : No deficits noted. No signs and/or symptoms were reported regarding the genitourinary system. Derm: No deficits noted. No signs and/or symptoms reported regarding the dermatologic system. Musculoskeletal: Reports L side pain. Historical: - Allergies: 00:20 No Known Allergies; al5 - Home Meds: 00:20 amlodipine 10 mg oral tablet 1 tab daily [Active]; Perdido Thyroid 60 mg Oral tab daily al5 [Active]; carvedilol 25 mg oral tablet 1 tab 2 times per day [Active]; levothyroxine 88 mcg tablet 1 tab daily [Active]; Synthroid 25 mcg Oral tab 1 tab once daily [Active]; - PMHx: 00:20 Hypertension; Hypothyroidism; al5 - PSHx: 00:20 hip replacement; knee replacement; al5 - Immunization history:: Adult Immunizations up to date. - Infectious Disease History:: Denies. - Social history:: Smoking status: Patient denies any tobacco usage or history of. Screenin:00 [facility] ED Fall Risk Assessment (Adult) History of falling in the last 3 months, jb4 including since admission No falls in past 3 months (0 pts) Confusion or Disorientation No (0 pts) Intoxicated or Sedated No (0 pts) Impaired Gait No (0 pts) Mobility Assist Device Used No (0 pt) Altered Elimination No (0 pt) Score/Fall Risk Level 0 - 2 = Low Risk Oriented to surroundings, Maintained a safe environment. Abuse screen: Denies threats or abuse. Nutritional screening: No deficits noted. Tuberculosis screening: No symptoms or risk factors identified. Assessment: 03:00 General: Appears in no apparent distress. comfortable, Behavior is calm, cooperative, jb4 appropriate for age. Pain: Complains of pain in back and left lateral anterior chest Pain does not radiate. Pain currently is 5 out of 10 on a pain scale. Neuro: Level of Consciousness is awake, alert, obeys commands, Oriented to person, place, time, situation. Cardiovascular: Patient's skin is warm and dry. Respiratory: Airway is patent Respiratory effort is even, unlabored, Respiratory pattern is regular, symmetrical. GI: No signs and/or symptoms were reported involving the gastrointestinal system. : No signs and/or symptoms were reported regarding the genitourinary system. EENT: No signs and/or symptoms were reported regarding the EENT system. Derm: Skin is intact, Skin is pink, warm \T\ dry. Musculoskeletal: Circulation, motion, and sensation intact. Range of motion: intact in all extremities. 04:00 Reassessment: Patient appears in no apparent distress at this time. Patient and/or jb4 family updated on plan of care and expected duration. Pain level reassessed. Patient is alert, oriented x 3, equal unlabored respirations, skin warm/dry/pink. 05:00 Reassessment: Patient appears in no apparent distress at this time. Patient and/or jb4 family updated on plan of care and expected duration. Pain level reassessed. Patient is alert, oriented x 3, equal unlabored respirations, skin warm/dry/pink. 06:00 Reassessment: Patient appears in no apparent distress at this time. Patient and/or jb4 family updated on plan of care and expected duration. Pain level reassessed. Patient is alert, oriented x 3, equal unlabored respirations, skin warm/dry/pink. 07:11 Reassessment: Patient appears in no apparent distress at this time. Patient and/or jb4 family updated on plan of care and expected duration. Pain level reassessed. Patient is alert, oriented x 3, equal unlabored respirations, skin warm/dry/pink. Vital Signs: 00:19 BP 127 / 65; Pulse 62; Resp 18; Temp 97.3; Pulse Ox 99% on R/A; Weight 102.06 kg; al5 Height 5 ft. 6 in. ; Pain 5/10; 05:00 BP 142 / 71; Pulse 50; Resp 14; Pulse Ox 100% on R/A; jb4 00:19 Body Mass Index 36.32 (102.06 kg, 167.64 cm) al5 00:19 Pain Scale: Adult al5 ED Course: 00:01 Patient arrived in ED. mg5 00:06 Paul Kwon PA is PHCP. cp 00:06 Paul Arroyo MD is Attending Physician. cp 00:20 Triage completed. al5 00:28 Arm band placed on right wrist. Patient placed in an exam room, on a stretcher. al5 02:45 XRAY Chest (1 view) In Process Unspecified. EDMS 03:11 EKG done, by ED staff, reviewed by Paul FULTON. kmf 03:30 Initial lab(s) drawn, by il, sent to lab. Inserted saline lock: 20 gauge in right hand, jb4 using aseptic technique. Blood collected. 04:03 CT Stone Protocol In Process Unspecified. EDMS 06:00 Patient has correct armband on for positive identification. Bed in low position. Call jb4 light in reach. Side rails up X 1. Provided Education on: discharge instructions.. 06:00 No provider procedures requiring assistance completed. IV discontinued, intact, jb4 bleeding controlled, No redness/swelling at site. Pressure dressing applied. Administered Medications: 03:45 Drug: Ketorolac IVP 15 mg IVP once Route: IVP; Site: right hand; jb4 Medication: 06:00 VIS not applicable for this client. jb4 Outcome: 06:35 Discharge ordered by . tucker 07:14 Discharged to home ambulatory, jb4 07:14 Condition: stable jb4 07:14 Discharge instructions given to patient, Instructed on discharge instructions, follow up and referral plans. no drinking with medication, no driving heavy equipment, medication usage, Demonstrated understanding of instructions, follow-up care, medications, Prescriptions given X 2, 07:14 Patient left the ED. jb4 Signatures: Dispatcher [employer] EDMS Paul Arroyo MD MD cha Page, Corey, PA PA Óscar Warren, RN RN jb4 Alize De La Cruz mg5 Jessica Dao [facility] Deanne Shell RN RN al5 Corrections: (The following items were deleted from the chart) 00:26 00:20 Home Meds: hydrochlorothiazide 25 mg Oral tab; al5 al5 00:26 00:20 Home Meds: levothyroxine once daily; al5 al5
--- NOTE | 2024-02-25 06:36 | EDPHYS ---
Physician Documentation [facility] Name: Tracy Peterson Age: 73 yrs Sex: Female : 1950 Arrival Date: 02/24/2024 Time: 23:57 Bed 15 Private MD: ED Physician Paul Arroyo HPI: 02/24 00:40 This 73 yrs old Black Female presents to ER via Ambulatory with complaints of left side cp pain. 00:40 The patient complains of pain in the left. cp 00:40 Onset: The symptoms/episode began/occurred for months. Modifying factors: the symptoms cp are aggravated by movement, palpation/percussion. Associated signs and symptoms: Pertinent negatives: diarrhea, dysuria, fever, urinary frequency, hematuria, pain radiating to the lower extremities. Severity of pain: in the emergency department the pain is actually worse. Patient reports pain starts in left hip/groin and radiates to left flank and back. Historical: - Allergies: 00:20 No Known Allergies; al5 - Home Meds: 00:20 amlodipine 10 mg oral tablet 1 tab daily [Active]; Malone Thyroid 60 mg Oral tab daily al5 [Active]; carvedilol 25 mg oral tablet 1 tab 2 times per day [Active]; levothyroxine 88 mcg tablet 1 tab daily [Active]; Synthroid 25 mcg Oral tab 1 tab once daily [Active]; - PMHx: 00:20 Hypertension; Hypothyroidism; al5 - PSHx: 00:20 hip replacement; knee replacement; al5 - Immunization history:: Adult Immunizations up to date. - Infectious Disease History:: Denies. - Social history:: Smoking status: Patient denies any tobacco usage or history of. ROS: 00:45 Constitutional: Negative for body aches, chills, fever, poor PO intake, cp 00:45 Constitutional: HX per HPI cp 00:45 Abdomen/GI: Negative for nausea, vomiting, and diarrhea, constipation, 00:45 Back: Positive for flank pain, on the left, 00:45 : Negative for urinary symptoms, 00:45 MS/extremity: Positive for pain, of the left groin and left hip, Negative for injury or acute deformity, decreased range of motion, 00:45 Skin: Negative for rash, 00:45 Neuro: Negative for weakness, 00:45 All other systems are negative, Exam: 01:00 Constitutional: The patient appears in no acute distress, alert, awake, cp non-diaphoretic, non-toxic, well developed, well nourished, 01:00 Head/Face: Normocephalic, atraumatic. cp 01:00 Eyes: Periorbital structures: appear normal, Conjunctiva: normal, no exudate, no injection, Sclera: no appreciated abnormality, Lids and lashes: appear normal, bilaterally, 01:00 ENT: External ear(s): are unremarkable, Nose: is normal, Mouth: Lips: moist, Oral mucosa: pink and intact, moist, Posterior pharynx: Airway: no evidence of obstruction, patent, 01:00 Chest/axilla: Inspection: normal, 01:00 Cardiovascular: Rate: normal, Rhythm: regular, Edema: is not appreciated, JVD: is not appreciated, 01:00 Respiratory: the patient does not display signs of respiratory distress, Respirations: normal, no use of accessory muscles, no retractions, labored breathing, is not present, Breath sounds: are clear throughout, no decreased breath sounds, no stridor, no wheezing, 01:00 Abdomen/GI: Inspection: abdomen appears normal, Palpation: soft, in all quadrants, mild abdominal tenderness, in the posterior aspect of left lateral abdomen and anterior aspect of left lateral abdomen, rebound tenderness, is not appreciated, 01:00 Back: CVA tenderness, is absent, 01:00 Neuro: Motor: moves all fours, strength is normal, Gait: is steady, 03:10 ECG was reviewed by the Attending Physician. cp Vital Signs: 00:19 BP 127 / 65; Pulse 62; Resp 18; Temp 97.3; Pulse Ox 99% on R/A; Weight 102.06 kg; al5 Height 5 ft. 6 in. ; Pain 5/10; 05:00 BP 142 / 71; Pulse 50; Resp 14; Pulse Ox 100% on R/A; jb4 00:19 Body Mass Index 36.32 (102.06 kg, 167.64 cm) al5 00:19 Pain Scale: Adult al5 MDM: 00:36 Patient medically screened. cp 05:13 Differential diagnosis: diverticulitis, gastritis, non-specific abd pain, pancreatitis, tucker Peptic Ulcer Disease, Pyelonephritis, Ureterolithiasis, urinary tract infection. Data reviewed: vital signs, nurses notes, lab test result(s), radiologic studies, CT scan. Consideration of Admission/Observation Escalation of care including admission/observation considered. Independent interpretation of the following test(s) in the Emergency Department CT Scan: My interpretation is CT STONE. 02/24 00:36 Order name: CBC with Diff; Complete Time: 04:38 cp 02/24 00:36 Order name: PT-INR; Complete Time: 04:38 cp 02/24 02:54 Order name: Lipase; Complete Time: 06:30 cp 02/24 06:31 Order name: Urinalysis w/ reflexes; Complete Time: 04:38 tucker 02/24 00:36 Order name: XRAY Chest (1 view) 02/24 02:54 Order name: CT Stone Protocol 02/24 00:36 Order name: Cardiac monitoring; Complete Time: 03:12 cp 02/24 00:36 Order name: EKG - Nurse/Tech; Complete Time: 03:12 cp 02/24 00:36 Order name: IV Saline Lock; Complete Time: 03:48 cp 02/24 00:36 Order name: Labs collected and sent; Complete Time: 03:48 cp 02/24 00:36 Order name: O2 Per Protocol; Complete Time: 02:57 cp 02/24 00:36 Order name: O2 Sat Monitoring; Complete Time: 02:57 cp EC:10 Rate is 64 beats/min. Rhythm is regular. MN interval is normal. QRS interval is normal. cp QT interval is normal. Interpreted by me. Reviewed by me. Administered Medications: 03:45 Drug: Ketorolac IVP 15 mg IVP once Route: IVP; Site: right hand; jb4 Disposition: 05:11 Co-signature as Attending Physician, Paul Arroyo MD I agree with the assessment and tucker plan of care. Disposition Summary: 02/25/24 06:35 Discharge Ordered Notes: Location: Home tucker Problem: new tucker Symptoms: have improved tucker Condition: Stable tucker Diagnosis - Chronic pain, not elsewhere classified tucker Followup: cp - With: Private Physician - When: 1 week - Reason: Recheck today's complaints Discharge Instructions: - Discharge Summary Sheet cp - Chronic Pain, Adult cp Forms: - Medication Reconciliation Form tucker - Antibiotic Education tucker - Prescription Opioid Use tucker - Patient Portal Instructions tucker - Leadership Thank You Letter tucker Prescriptions: - Mobic 7.5 mg Oral Tablet - take 1 tablet ORAL route once daily take with food; 20 tablet; Refills: 0, cp Product Selection Permitted - Cyclobenzaprine 10 mg Oral Tablet - take 1 tablet ORAL route every 8 hours As needed; 30 tablet; Refills: 0, cp Product Selection Permitted Signatures: Dispatcher [employer] EDMS Paul Arroyo MD MD cha Page, Corey, PA PA cp Bryson, James, RN RN jb4 Deanne Shell RN RN al5 Corrections: (The following items were deleted from the chart) 00:26 00:20 Home Meds: hydrochlorothiazide 25 mg Oral tab; al5 al5 00:26 00:20 Home Meds: levothyroxine once daily; al5 al5 00:36 00:36 BASIC METABOLIC PANEL+C.LAB.BRZ ordered. EDMS EDMS 00:36 00:36 CBC+H.LAB.BRZ ordered. EDMS EDMS 00:36 00:36 HEPATIC FUNCTION+C.LAB.BRZ ordered. EDMS EDMS 00:36 00:36 MAGNESIUM+C.LAB.BRZ ordered. EDMS EDMS 00:36 00:36 PROBNP+C.LAB.BRZ ordered. EDMS EDMS 00:37 00:36 PROTIME (+INR)+COAG.LAB.BRZ ordered. EDMS EDMS 00:37 00:36 Troponin High Sensitivity+C.LAB.BRZ ordered. EDMS EDMS 00:37 00:37 Chest Single View+RAD.RAD.BRZ ordered. EDMS EDMS 02:54 02:54 LIPASE+C.LAB.BRZ ordered. EDMS EDMS 02:54 02:54 Urinalysis W/Microscopic+U.LAB.BRZ ordered. EDMS EDMS 02:54 02:54 Stone Protocol+CT.RAD.BRZ ordered. EDMS EDMS
[2024-02-25 06:53] LABS: Absolute Basophils 0.1 K/uL (0-0.5); Absolute Eosinophils 0.2 K/uL (0-0.5); Absolute Lymphocytes (CBC) 2.5 K/uL (0.7-4.9); Absolute Monocytes 0.4 K/uL (0.1-1.3); Absolute Neutrophil 2.3 K/uL (1.8-8.0); Basophils % 1.2 % (0-1.3); Eosinophils % 3.9 % (0-4.4); Hematocrit 42.2 % (36.0-45.0); Hemoglobin 14.2 g/dL (12.0-15.0); Lymphocytes % 46.5 % (15.3-44.8); MCH 31.4 pg (27.0-35.0); MCHC 33.7 g/dL (32.0-36.0); MCV 93.1 fL (80-100); MPV 8.2 fL (7.6-11.3); Monocytes % 6.6 % (3.3-12.3); Neutrophils % 41.8 % (41.7-73.7); Nucleated Red Blood Cells % 0.1 % (0-0); Platelets 327 thou/uL (152-406); RBC Red Blood Cell Count 4.53 M/uL (3.86-4.86)
[2024-02-25 06:56] LABS: PT Prothrombin Time 11.7 SECONDS (9.4-12.5); Protime INR 1.07
[2024-02-25 06:56] LABS: Specific Gravity 1.012 (1.005-1.030); Sqamous Epithelial <5 /HPF (None Seen); Urine Bacteria None Seen /HPF (<20); Urine Bilirubin NEGATIVE (Negative); Urine Blood 1+ (Negative); Urine Clarity Clear (Clear); Urine Color Colorless (Yellow); Urine Culture Reflex Order NOT NEEDED; Urine Glucose NEGATIVE (Negative); Urine Ketones NEGATIVE (Negative); Urine Microscopic Reflex YN ORDER UMIC; Urine Nitrite NEGATIVE (Negative); Urine Protein NEGATIVE (Negative); Urine RBC <5 /HPF (None Seen); Urine Urobilinogen Normal (Normal); Urine WBC <5 /HPF (<5)
[2024-02-25 07:40] VITALS: BP 142/71; TEMP 97.3; O2SAT 100
--- NOTE | 2024-02-26 10:31 | EKG ---
Test Date: 2024-02-25 Test Time: 03:05:55 Janitorial Maintenance Worker: SHIVA MEASUREMENT RESULTS: Intervals: Rate: 64 CO: 184 QRSD: 84 QT: 422 QTc: 435 [place]: P: 71 CO: 184 QRS: -4 T: -6 INTERPRETIVE STATEMENTS: Normal sinus rhythm T wave abnormality, consider anterior ischemia Abnormal ECG Compared to ECG 08/17/2023 11:32:27 Possible ischemia now present Sinus bradycardia no longer present Sinus arrhythmia no longer present T-wave abnormality still present Electronically Signed On 02-26-24 10:30:41 CDT by Preet Rodrigez
--- NOTE | 2024-02-26 14:23 | RAD REPORT ---
EXAM DESCRIPTION: Stone Protocol CLINICAL HISTORY: FLANK PAIN COMPARISON: 03/03/2023 TECHNIQUE: CT of the abdomen and pelvis without IV contrast. Evaluation of the solid organs and vasc ulature is suboptimal due to lack of IV contrast. This exam was performed according to our department al dose-optimization program, which includes automated exposure control, adjustment of the mA and/or kV according to patient size and/or use of iterative reconstruction technique. 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 Lung Bases: Partially visualized right middle lobe opacities which could be due to atelectasis. Abdomen: Liver: The liver has normal contour and density. No obvious mass within the limitations of noncontr ast technique. Gallbladder: No calcified gallstones. Spleen, Pancreas, and Adrenal Glands: The spleen, pancreas, and adrenal glands are unremarkable. Kidneys: The kidneys have normal size without suspicious mass within the limitations of noncontrast t echnique. No obstructing ureteral calculi. No hydronephrosis. Vasculature: The aorta and IVC have normal caliber and position. Stomach: The stomach and duodenum have normal course. Other: No free intraperitoneal air. No free fluid or lymphadenopathy. Pelvis: Bladder: Partially obscured due to artifact. Visualized portions are unremarkable. Bowel: No dilated loops of large or small bowel. Mild colon diverticulosis. Appendix: Normal appendix. Pelvis: Coarse calcifications in the uterus probably representing small fibroids. Appearance is uncha nged. 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 Cystic changes in the posterior right a cetabulum are stable and probably due to degenerative changes of the right hip. No suspicious bone le sherron. IMPRESSION: 1. No urinary tract calculi or hydronephrosis. 2. Mild colon diverticulosis. Electronically signed by: Torrie Turner MD 02/25/2024 05:19 AM CDT RP Due to temporary technical issues with the PACS/Fluency reporting system, reports are being signed by the in house radiologists without review as a courtesy to insure prompt reporting. The interpreting radiologist is fully responsible for the content of the report.
--- NOTE | 2024-02-26 15:37 | RAD REPORT ---
EXAM DESCRIPTION: Chest Single View 02/25/2024 3:16 AM CDT CLINICAL HISTORY: 73 years, Female, left side pain COMPARISON: None FINDINGS: 1 views of the chest was obtained. Prior films were compared. There is normal lung volum e. Mediastinum: The cardiomediastinal silhouette appears normal in size and shape. Lungs: Bilateral lower lobes zones demonstrate small linear densities perhaps corresponding to atelec tasis and/or less likely infiltrate. Heart: The heart is normal in size. Thoracic aorta: The thoracic aorta demonstrate to be normal. Pulmonary vasculature: The pulmonary vasculature is normal in distribution. Pleura: The costophrenic angles demonstrate to be sharp. Osseous structures: The bony structures demonstrate significant degenerative changes bilateral glenoh umeral joints. Other: None. IMPRESSION: Bilateral lower lobe small linear densities perhaps corresponding to atelectasis and/or less likely infiltrate. Electronically signed by: Omar Cleary MD 02/25/2024 03:17 AM CDT RP Due to temporary technical issues with the PACS/Fluency reporting system, reports are being signed by the in house radiologists without review as a courtesy to insure prompt reporting. The interpreting radiologist is fully responsible for the content of the report.
== END 2024-02-25 07:14 | disposition home or self-care (01) ==
LOC: ER 23:57
DX: G89.29 Other chronic pain (principal)
CPT/HCPCS: 36415; 71045; 74176; 76377; 81001; 83690; 85025; 85610; 93005; 96374; 99284

== ENCOUNTER 2024-02-25 19:27 | Emergency (ER) | payer BC ==
[2024-02-25 20:42] LABS: ALT/SGPT 22 U/L (13-56); AST/SGOT 13 U/L (15-37); Albumin 3.7 g/dL (3.4-5.0); Albumin/Globulin Ratio 0.8 (1.1-1.8); Alkaline Phosphatase 86 U/L (45-117); Anion Gap 9.7 mEq/L (5.0-15.0); BUN Blood Urea Nitrogen 23 mg/dL (7-18); Bicarbonate 26 mEq/L (21-32); Bilirubin Total 0.2 mg/dL (0.2-1.0); Globulin 4.4 g/dL (2.3-3.5); Glomerular Filtration Rate 38 ml/min (=/>90); Glucose Level 105 mg/dL (74-106); Magnesium 2.3 mg/dL (1.6-2.4); NT PRO-BNP 18 pg/mL (<125); Potassium 3.7 mEq/L (3.5-5.1); Protein, Total 8.1 g/dL (6.4-8.2); Sodium Level 139 mEq/L (136-145); Troponin High Sensitivity 3.7 pg/mL (<58.9)
[2024-02-25 20:56] LABS: Bilirubin Direct < 0.2 mg/dL (0-0.2)
--- NOTE | 2024-02-25 21:32 | ER ---
Nurse's Notes [facility] Name: Tracy Peterson Age: 73 yrs Sex: Female : 1950 Arrival Date: 02/25/2024 Time: 19:27 Bed 14 Private MD: Diagnosis: Chronic kidney disease, unspecified Presentation: 02/24 20:00 Chief complaint: Patient states: Seen here last night and had issues with getting labs cm10 resulted. Here to have labs done. Coronavirus screen: Client denies travel out of the [place] in the last 14 days. At this time, the client does not indicate any symptoms associated with coronavirus-19. Ebola Screen: Patient denies travel to an Ebola-affected area in the 21 days before illness onset. No symptoms or risks identified at this time. Initial Sepsis Screen: Does the patient meet any 2 criteria? No. Patient's initial sepsis screen is negative. Does the patient have a suspected source of infection? No. Patient's initial sepsis screen is negative. Risk Assessment: Do you want to hurt yourself or someone else? Patient reports no desire to harm self or others. Onset of symptoms was February 25, 2024. 20:00 Method Of Arrival: Ambulatory cm10 20:00 Acuity: TRICIA 4 cm10 Triage Assessment: 20:02 General: Appears in no apparent distress. comfortable, Behavior is calm, cooperative. cm10 Pain: Denies pain. Neuro: No deficits noted. Level of Consciousness is awake, alert, obeys commands, Oriented to person, place, time, situation, Appropriate for age. Respiratory: No deficits noted. Airway is patent Respiratory effort is even, unlabored, Respiratory pattern is regular, symmetrical. Musculoskeletal: No deficits noted. Range of motion: intact in all extremities. Historical: - Allergies: 20:01 No Known Allergies; cm10 - PMHx: 20:01 Hypertension; Hypothyroidism; cm10 - PSHx: 20:01 hip replacement; knee replacement; cm10 - Immunization history:: Adult Immunizations up to date. - Infectious Disease History:: Denies. - Social history:: Smoking status: Patient denies any tobacco usage or history of. Screenin:18 [facility] ED Fall Risk Assessment (Adult) History of falling in the last 3 months, cm10 including since admission No falls in past 3 months (0 pts) Confusion or Disorientation No (0 pts) Intoxicated or Sedated No (0 pts) Impaired Gait No (0 pts) Mobility Assist Device Used No (0 pt) Altered Elimination No (0 pt) Score/Fall Risk Level 0 - 2 = Low Risk Oriented to surroundings, Maintained a safe environment, Hourly rounding (assess needs \T\ fall precautionary measures) done. Abuse screen: Denies threats or abuse. Denies injuries from another. Nutritional screening: No deficits noted. Tuberculosis screening: No symptoms or risk factors identified. Vital Signs: 20:00 BP 126 / 58; Pulse 62; Resp 18; Temp 98; Pulse Ox 100% ; Weight 102.97 kg; Height 5 ft. cm10 6 in. ; Pain 0/10; 20:30 BP 122 / 64; Pulse 56; Resp 16; Pulse Ox 100% on R/A; cm10 20:00 Body Mass Index 36.64 (102.97 kg, 167.64 cm) cm10 20:00 Pain Scale: Adult cm10 ED Course: 19:33 Patient arrived in ED. gm2 19:36 Maria Luisa Anton PA-C is PHCP. sb4 19:36 Paul Arroyo MD is Attending Physician. sb4 20:01 Triage completed. cm10 20:02 Arm band placed on Patient placed in an exam room, on a stretcher, on pulse oximetry. cm10 20:02 Patient has correct armband on for positive identification. Bed in low position. Call cm10 light in reach. Provided Education on: ER process and procedures.. Pulse ox on. NIBP on. 20:02 No provider procedures requiring assistance completed. cm10 20:17 Sally Jane, RN is Primary Nurse. cm10 20:17 Basic Metabolic Panel Sent. cm10 20:17 LFT's Sent. cm10 20:17 Magnesium Sent. cm10 20:17 NT PRO-BNP Sent. cm10 20:17 Troponin HS Sent. cm10 20:18 Missed attempt(s): 20 gauge in right forearm. Bleeding controlled, band aid applied, cm10 catheter tip intact. 21:32 Milagros Go MD is Referral Physician. sb4 21:57 Patient did not have IV access during this emergency room visit. cm10 Administered Medications: No medications were administered Medication: 21:57 VIS not applicable for this client. cm10 Outcome: 21:32 Discharge ordered by MD. rivera 21:57 Discharged to home ambulatory, with family, cm10 21:57 Condition: good 21:57 Discharge instructions given to patient, Instructed on discharge instructions, follow up and referral plans. Demonstrated understanding of instructions, follow-up care, :57 Patient left the ED. cm10 Signatures: Maria Luisa Anton PA-C PA-C sb4 Martinez, Clarissa, RN RN cm10 Clarita Chahal [facility]
--- NOTE | 2024-02-25 21:32 | EDPHYS ---
Physician Documentation [facility] Name: Tracy Peterson Age: 73 yrs Sex: Female : 1950 Arrival Date: 02/25/2024 Time: 19:27 Bed 14 Private MD: ED Physician Paul Arroyo HPI: 02/24 19:37 This 73 yrs old Black Female presents to ER via Unassigned with complaints of Labs that sb4 need to be done from prior visit. 20:04 Patient was seen here yesterday for chest/abdominal pain. Apparently, some of her lab sb4 work never resulted and she was discharged. She is concerned that she never received the results and would like her blood work redrawn. Historical: - Allergies: 20:01 No Known Allergies; cm10 - PMHx: 20:01 Hypertension; Hypothyroidism; cm10 - PSHx: 20:01 hip replacement; knee replacement; cm10 - Immunization history:: Adult Immunizations up to date. - Infectious Disease History:: Denies. - Social history:: Smoking status: Patient denies any tobacco usage or history of. ROS: 20:05 Constitutional: Negative for fever, chills, and weight loss, sb4 20:05 All other systems are negative, Exam: 20:05 Constitutional: This is a well developed, well nourished patient who is awake, alert, sb4 and in no acute distress. Head/Face: Normocephalic, atraumatic. Eyes: Extra-ocular motions intact. Periorbital areas with no swelling, redness, or edema. ENT: Mucous membranes moist. Skin: Warm, dry with normal turgor. Normal color with no rashes, no lesions, and no evidence of cellulitis. Vital Signs: 20:00 BP 126 / 58; Pulse 62; Resp 18; Temp 98; Pulse Ox 100% ; Weight 102.97 kg; Height 5 ft. cm10 6 in. ; Pain 0/10; 20:30 BP 122 / 64; Pulse 56; Resp 16; Pulse Ox 100% on R/A; cm10 20:00 Body Mass Index 36.64 (102.97 kg, 167.64 cm) cm10 20:00 Pain Scale: Adult cm10 MDM: 19:36 Patient medically screened. sb4 20:05 Data reviewed: vital signs, nurses notes, lab test result(s), and as a result, I will sb4 discharge patient. 02/24 19:40 Order name: Basic Metabolic Panel; Complete Time: 20:56 sb4 02/24 19:40 Order name: LFT's; Complete Time: 20:56 sb4 02/24 19:40 Order name: Magnesium; Complete Time: 20:56 sb4 02/24 19:40 Order name: NT PRO-BNP; Complete Time: 20:56 sb4 02/24 19:40 Order name: Troponin HS; Complete Time: 20:56 sb4 Administered Medications: No medications were administered Disposition: 02/25 04:18 Co-signature as Attending Physician, Paul Arroyo MD I agree with the assessment and tucker plan of care. Disposition Summary: 02/25/24 21:32 Discharge Ordered Notes: Location: Home sb4 Problem: new sb4 Symptoms: are unchanged sb4 Condition: Stable sb4 Diagnosis - Chronic kidney disease, unspecified sb4 Followup: sb4 - With: Milagros Go MD - When: As needed - Reason: Recheck today's complaints, Re-evaluation by your physician Discharge Instructions: - Discharge Summary Sheet sb4 - Chronic Kidney Disease, Adult, Ofoi-ic-Salc sb4 Forms: - Patient Portal Instructions sb4 - Leadership Thank You Letter sb4 Signatures: Dispatcher [employer] Paul Saldana MD MD cha Brown, Sophia, PA-C PA-C sb4 Sally Jane, RN RN cm10
[2024-02-25 22:22] VITALS: BP 122/64; TEMP 98; O2SAT 100
== END 2024-02-25 21:57 | disposition home or self-care (01) ==
LOC: ER 19:27
DX: I12.9 Hypertensive chronic kidney disease with stage 1 through stage 4 chronic kidney disease, or unspecified chronic kidney disease (principal)
CPT/HCPCS: 36415; 80048; 80076; 83735; 83880; 84484; 99283

== ENCOUNTER 2024-08-13 10:24 | Day surgery (SDC) | payer BC ==
[2024-08-09 14:52] LABS: Absolute Basophils 0.1 K/uL (0-0.5); Absolute Eosinophils 0.1 K/uL (0-0.5); Absolute Lymphocytes (CBC) 2.6 K/uL (0.7-4.9); Absolute Monocytes 0.7 K/uL (0.1-1.3); Basophils % 0.7 % (0-1.3); Eosinophils % 1.4 % (0-4.4); Hematocrit 38.6 % (36.0-45.0); Hemoglobin 12.6 g/dL (12.0-15.0); Lymphocytes % 34.7 % (15.3-44.8); MCH 31.2 pg (27.0-35.0); MCHC 32.6 g/dL (32.0-36.0); MCV 95.5 fL (80-100); Neutrophils % 54.2 % (41.7-73.7); Platelets 323 thou/uL (152-406); RBC Red Blood Cell Count 4.04 M/uL (3.86-4.86); Red Cell Distribution Width 14.8 % (12.1-15.2)
[2024-08-09 15:04] LABS: Anion Gap 7.3 mEq/L (5.0-15.0); Potassium 4.3 mEq/L (3.5-5.1)
[2024-08-13] MEDS: Ringers Lactate 1,000 ML IV ONE (11:20)
[2024-08-13] MEDS ORDERED: propofoL 200 MG/20 ML VIAL IV ONE (12:42)
[2024-08-13] MEDS ORDERED: GLYCOPYRROLATE 0.2 MG/ML SYR ONE (12:43)
[2024-08-13 14:17] VITALS: BP 121/54; TEMP 98.1; O2SAT 96
== END 2024-08-13 13:56 | disposition home or self-care (01) ==
LOC: OR 10:24
PROVIDERS: ATTEND Surgery
PROC: 0DBL8ZX Excision of Transverse Colon, Via Natural or Artificial Opening Endoscopic, Diagnostic (ICD-10-PCS; 2024-08-13)
PROC: 0DBP8ZX Excision of Rectum, Via Natural or Artificial Opening Endoscopic, Diagnostic (ICD-10-PCS; 2024-08-13)
PROC: 0DBH8ZX Excision of Cecum, Via Natural or Artificial Opening Endoscopic, Diagnostic (ICD-10-PCS; 2024-08-13)
PROC: 0DBK8ZX Excision of Ascending Colon, Via Natural or Artificial Opening Endoscopic, Diagnostic (ICD-10-PCS; principal; 2024-08-13 12:00)
DX: Z12.11 Encounter for screening for malignant neoplasm of colon (principal); Z86.0100 Personal history of colon polyps, unspecified; D12.2 Benign neoplasm of ascending colon; D12.0 Benign neoplasm of cecum; D12.3 Benign neoplasm of transverse colon
CPT/HCPCS: 45380; 85025; 80048; 36415; 88305 ×2; J2704; J7120